=== PATIENT | female | born 1940 | race Caucasian/White ===

== ENCOUNTER 2024-02-25 14:34 | Emergency (ER) | payer MEDICARE, SELFPAY ==
--- NOTE | ~2024-02-25 | US_ITS ---
LEFT LOWER EXTREMITY VENOUS ULTRASOUND Ordering provider: Mandy Rojas PA-C History: . left calf pain . Comparison: None. FINDINGS: --COMMON FEMORAL: Patent and free of thrombus. Normal compressibility, phasic flow and augmentation. --PROXIMAL SUPERFICIAL FEMORAL: Patent and free of thrombus. Normal compressibility, phasic flow and augmentation. --DISTAL SUPERFICIAL FEMORAL: Patent and free of thrombus. Normal compressibility, phasic flow and au gmentation. --POPLITEAL: Patent and free of thrombus. Normal compressibility, phasic flow and augmentation. --POSTERIOR TIBIAL: Patent and free of thrombus. Normal compressibility, phasic flow and augmentation . IMPRESSION: Negative left lower extremity venous US. No deep vein thrombosis. Reviewed, dictated and finalized at location A. A BUYER
--- NOTE | ~2024-02-25 | XR_ITS ---
XR hip LT 2V w AP pelvis Ordering provider: Mandy Rojas PA-C History: . left hip pain . Comparison: None. FINDINGS: BONES: No acute fracture or dislocation. HIP JOINT SPACES: Mild to moderate bilateral hip osteoarthritic changes. SACROILIAC JOINT SPACES/LUMBAR SPINE: The sacroiliac joint spaces are normal. Mild degenerative carty es of the visualized lower lumbar spine. PUBIC SYMPHYSIS: Pubic symphysitis. SOFT TISSUES: Normal. IMPRESSION: No acute osseous abnormality pelvis and left hip. Reviewed, dictated and finalized at location A. AT ANALYST
--- NOTE | ~2024-02-25 | XR_ITS ---
EXAM: XR lumbar spine 2-3V DATE: 02/25/2024 15:56 HISTORY: left leg pain . COMPARISON: None available. FINDINGS: 5 nonrib-bearing lumbar-type vertebral bodies. Cholecystectomy clips. Mild scoliosis. 6 mm anterolisthesis at L5-S1. 3 mm anterolisthesis at L4-5. Multilevel disc space narrowing and marginal osteophytosis, with vacuum phenomenon at L3-4 through L5-S1. Moderate mid and lower lumbar facet hyp ertrophy and sclerosis. Aortic calcifications without evident aneurysm IMPRESSION: Grade 1 anterolistheses at L4-5 and L5-S1 Multilevel lumbar degenerative disc disease, se zoraida at L3-4 through L5-S1. Multilevel moderate facet arthropathy. Reviewed, dictated and finalized at location K. T USHER IMPRESSION: Grade 1 anterolistheses at L4-5 and L5-S1 Multilevel lumbar degener ative disc disease, severe at L3-4 through L5-S1. Multilevel moderate facet art hropathy.
[2024-02-25 14:37] VITALS: BP 157/52; PULSE 78; RESP 20; TEMP 36.4; O2SAT 98
--- NOTE | 2024-02-25 15:06 | ED_ITS ---
HPI - Extremity Problem General Chief complaint: Extremity Problem,Nontraumatic Stated complaint: LLE weakness Time Seen by Provider: 02/25/24 15:06 Focused HPI: This is a 83 year old female that presents to the ER for left leg pain. Ongoing over the last year. Reports her leg gave out and this caused her to fall today. She did not hit her head or lose consciousness. Reports she hit her left elbow, sustained an abrasion. Reports a squeezing pain in her left lower leg and calf. She took a Naproxen this morning. Denies fever, redness, or swelling. GENERAL: Elderly, well-nourished, and in no acute distress. HEAD: Normocephalic, atraumatic. CHEST: Clear to auscultation. ?No respiratory distress. HEART: Regular rate and rhythm.? NEURO: ?Alert and oriented x3. Patient screened in triage and initial orders placed.? ?Additional care and disposition to be based upon?diagnostic testing and treatment. Related Data Home Medications ?Medication ?Instructions ?Recorded ?Confirmed ?Last Taken ?Type losartan 25 mg tablet 25 mg PO DAILY 05/09/22 05/09/22 Unknown History naproxen 500 mg tablet 500 mg PO BID 05/09/22 05/09/22 Unknown History omeprazole 20 mg capsule,delayed 20 mg PO BID 05/09/22 05/09/22 Unknown History release Allergies Allergy/AdvReac Type Severity Reaction Status Date / Time hydrocodone AdvReac Unknown crying Verified 02/25/24 14:43 propoxyphene (From Darvon) AdvReac Unknown crying Verified 02/25/24 14:43 [facility] Past Medical History Medical History (Updated 02/25/24 @ 17:45 by Mandy Rojas PA-C) Sigmoid diverticulitis Chronic diarrhea Amputation of toe Surgical History Surgical History H/O umbilical hernia repair Hx of removal of ovary H/O rotator cuff surgery Social History Social History Smoking status: Unknown if ever smoked Second hand tobacco smoke exposure: No Alcohol intake: never Substance use: never Course Vital Signs Vital signs: Vital Signs Temperature 97.5 F L 02/25/24 14:37 Pulse Rate 78 02/25/24 14:37 Respiratory Rate 20 02/25/24 14:37 Blood Pressure 157/52 H 02/25/24 14:37 Pulse Oximetry 98 02/25/24 14:37 Oxygen Delivery Room Air 02/25/24 14:37 Temperature 97.9 F 02/25/24 16:22 Pulse Rate 80 02/25/24 16:22 Respiratory Rate 16 02/25/24 16:22 Blood Pressure 141/60 H 02/25/24 16:22 Pulse Oximetry 97 02/25/24 16:22 Oxygen Delivery Room Air 02/25/24 14:37 MDM - Extremity (Nontraumatic) MDM Narrative Medical decision making narrative: Patient left after initial screening exam and workup and before any further evaluation or management Imaging Data Radiologist's impression: ITS Impressions Venous Doppler Study 02/25/24 15:40 IMPRESSION: Negative left lower extremity venous US. No deep vein thrombosis. Lumbar Spine X-Ray 02/25/24 15:58 IMPRESSION: Grade 1 anterolistheses at L4-5 and L5-S1 Multilevel lumbar degenerative disc disease, severe at L3-4 through L5-S1. Multilevel moderate facet arthropathy. Hip/Pelvis X-Ray 02/25/24 16:00 IMPRESSION: No acute osseous abnormality pelvis and left hip. Discharge Plan Discharge Clinical Impression: Chronic pain of left lower extremity Patient Disposition: Elopement After Seen by Prov Condition: Stable Patient Language: Indonesian Prescriptions: No Action losartan 25 mg tablet 25 mg PO DAILY naproxen 500 mg tablet 500 mg PO BID omeprazole 20 mg capsule,delayed release(DR/EC) 20 mg PO BID cholestyramine (with sugar) [Questran] 4 gram powder in packet 4 g PO DAILY Qty: 30 3RF Rx Instructions: administer w/meal; avoid other meds within 1hr before or 4-6hr after dose colestipol 1 gram tablet 1 g PO DAILY Qty: 30 3RF Follow-up/Referrals: Sarath,MD Darrell [Primary Care Provider] -
[2024-02-25 16:22] VITALS: BP 141/60; PULSE 80; RESP 16; TEMP 36.6; O2SAT 97
== END 2024-02-25 18:37 | disposition left against medical advice (07) ==
LOC: ANHED 18:27
PROVIDERS: Emergency Provider Physician Assistant; PCP Internal Medicine
DX: M79.662 Pain in left lower leg (principal); S50.312A Abrasion of left elbow, initial encounter; W19.XXXA Unspecified fall, initial encounter
CPT/HCPCS: 72100; 73502; 93971; 99284

== ENCOUNTER 2024-03-20 12:01 | Outpatient (CLI) | payer MEDICARE, SELFPAY ==
--- NOTE | ~2024-03-20 | XR_ITS ---
XR knee LT 3V Ordering provider: Darrell Clemens, History: . Pain of left knee joint, lateral pain radiating s/p fall . Comparison: None. FINDINGS: BONES: No acute fracture or dislocation. JOINT SPACES: Normal. The marginal osteophytes in the patella. SOFT TISSUES: Normal. IMPRESSION: No acute osseous abnormality left knee. Mild osteoarthritic changes. Reviewed, dictated and finalized at location A. LIANDEER LOPPER
== END 2024-03-20 12:02 | disposition home or self-care (01) ==
PROVIDERS: PCP Internal Medicine; Visit Provider Internal Medicine
DX: M25.562 Pain in left knee (principal)
CPT/HCPCS: 73562

== ENCOUNTER 2024-04-04 12:42 | Emergency (ER) | payer MEDICARE, SELFPAY ==
--- NOTE | ~2024-04-04 | US_ITS ---
EXAMINATION: US venous doppler [facility] DATE: 04/04/2024 15:03 INDICATION: L calf pain . TECHNIQUE: Grayscale images without and with compression and Doppler images of the left lower extremi ty veins were obtained. COMPARISON: None FINDINGS: The left common femoral vein, profunda (deep) femoral vein, femoral vein, popliteal vein, peroneal v ein, posterior tibial veins, gastrocnemius vein, and greater saphenous vein are patent. IMPRESSION: Patent left lower extremity veins. No evidence of deep venous thrombosis. Reviewed, dictated and finalized at location K. ER COORDINATOR
[2024-04-04 12:53] VITALS: BP 122/65; PULSE 75; RESP 18; TEMP 36.3; O2SAT 98
[2024-04-04 13:07] VITALS: BP 147/47; PULSE 82; RESP 17; O2SAT 98
--- NOTE | 2024-04-04 14:38 | ED_ITS ---
HPI - Extremity Injury (Lower) General Chief Complaint: Extremity Injury, Lower Stated Complaint: eye and leg problems Time Seen by Provider: 04/04/24 13:54 History of Present Illness HPI Narrative: Pt is an 83-year-old female who presents to the ER with complaints of left eye swelling after using eyedrops. She reports she had cataract surgery on the 16 of March and has been using antibiotic drops since then. Patient reports every time she uses them her eye starts burning, tearing, swelling, itching. She reports she is supposed use these eyedrops until her follow-up appointment on May 15 but she stopped using them because of the pain. Patient also endorses left lower extremities swelling and pain that has been present for about a month. She told her primary care provider about the pain. They ordered an x-ray, which was normal so he told patient the pain was related to arthritis. Patient denies any shortness of breath, chest pain, drainage from her eye, headaches. She endorses a history of high blood pressure, and hyperlipidemia. Related Data Home Medications ?Medication ?Instructions ?Recorded ?Confirmed ?Last Taken ?Type losartan 25 mg tablet 25 mg PO DAILY 05/09/22 05/09/22 Unknown History naproxen 500 mg tablet 500 mg PO BID 05/09/22 05/09/22 Unknown History omeprazole 20 mg capsule,delayed 20 mg PO BID 05/09/22 05/09/22 Unknown History release Allergies Allergy/AdvReac Type Severity Reaction Status Date / Time hydrocodone AdvReac Unknown crying Verified 04/04/24 13:09 propoxyphene (From Darvon) AdvReac Unknown crying Verified 04/04/24 13:09 Review of Systems Review of Systems: All systems reviewed & are unremarkable except as noted in HPI and below PMFSH Past Medical History Medical History Sigmoid diverticulitis Chronic diarrhea Amputation of toe Surgical History Surgical History H/O umbilical hernia repair Hx of removal of ovary H/O rotator cuff surgery Social History Social History Smoking status: Unknown if ever smoked Second hand tobacco smoke exposure: No Alcohol intake: never Substance use: never Exam Narrative: GENERAL: Well appearing, well-nourished, non-toxic, in no acute distress. HEAD: Normocephalic, atraumatic. PERRLA +, positive upper and lower eyelid swelling, no evidence of preseptal or periorbital edema, no icteric sclera NECK: Supple. No adenopathy, no masses. RESPIRATORY: Airway patent, respirations nonlabored. Clear to auscultation bilaterally, no rales, rhonchi, wheezing. CARDIOVASCULAR: Regular rate and rhythm without murmurs, rubs, or gallops. Peripheral pulses 2+ and equal bilaterally. ABDOMINAL: Soft, nontender, nondistended, no hepatosplenomegaly. Normoactive BS. MUSCULOSKELETAL: Moves all extremities. Strength/ROM intact without gross deformities. +pain in LLE including calf, no notable swelling SKIN: Warm, dry, normal color. No rashes. NEURO: A&O X3. Speech clear. Cranial nerves II-XII grossly intact. No ataxic movements. PSYCHIATRIC: Appropriate mood and affect. Normal interaction. Course Vital Signs Vital signs: Vital Signs Temperature 36.3 C L 04/04/24 12:53 Pulse Rate 75 04/04/24 12:53 Respiratory Rate 18 04/04/24 12:53 Blood Pressure 122/65 04/04/24 12:53 Pulse Oximetry 98 04/04/24 12:53 Oxygen Delivery Room Air 04/04/24 12:53 Temperature 36.3 C L 04/04/24 12:53 Pulse Rate 82 04/04/24 13:07 Respiratory Rate 17 04/04/24 13:07 Blood Pressure 147/47 H 04/04/24 13:07 Pulse Oximetry 98 04/04/24 13:07 Oxygen Delivery Room Air 04/04/24 12:53 MDM - Extremity Injury (Lower) MDM Narrative Medical decision making narrative: Pt is an 83-year-old female who presents to the ER with complaints of left eye swelling after using eyedrops. She reports she had cataract surgery on the 16 of March and has been using antibiotic drops since then. Patient reports every time she uses them her eye starts burning, tearing, swelling, itching. She reports she is supposed use these eyedrops until her follow-up appointment on May 15 but she stopped using them because of the pain. Patient also endorses left lower extremities swelling and pain that has been present for about a month. She told her primary care provider about the pain. They ordered an x-ray, which was normal so he told patient the pain was related to arthritis. Patient denies any shortness of breath, chest pain, drainage from her eye, headaches. She endorses a history of high blood pressure, and hyperlipidemia. Labs Ordered: None necessary Imaging Ordered: Left lower extremity venous ultrasound Doppler Results: Patient's left lower extremity venous ultrasound shows Patent left lower extremity veins. No evidence of deep venous thrombosis. Diagnosis: Left lower extremity pain, left eye irritation status post cataract surgery Risks: Wells' Criteria for DVT from [email or web address] on 04/04/2024 All calculations should be rechecked by clinician prior to use RESULT SUMMARY: 1 points Moderate risk group for DVT. See Next Steps for details. INPUTS: Active cancer ?> 0 = No Bedridden recently >3 days or major surgery within 12 weeks ?> 0 = No Calf swelling >3 cm compared to the other leg ?> 0 = No Collateral (nonvaricose) superficial veins present ?> 0 = No Entire leg swollen ?> 0 = No Localized tenderness along the deep venous system ?> 1 = Yes Pitting edema, confined to symptomatic leg ?> 0 = No Paralysis, paresis, or recent plaster immobilization of the lower extremity ?> 0 = No Previously documented DVT ?> 0 = No Alternative diagnosis to DVT as likely or more likely ?> 0 = No Consults: Spoke with pt's focus puller who recommended patient be discharged with prednisolone eyedrops. She advised patient no longer needs antibiotic eyedrops. Patient should use the eyedrops twice a day for 1 week and then once a day for 1 week. Patient Education/Shared MDM: Results of ultrasound shared with patient. She reports decreased pain in her left eye after Decadron and Benadryl administration but still endorses mild itching. Patient was advised to sweet pickled fruit maker her eyedrops prescription and start them this evening. She reports her left leg continues to ache so patient will be given a shot of Toradol IM prior to discharge. Patient and her daughter verbalized understanding and are in agreement with plan. The but also a referral to Orthopedics for further left lower extremity evaluation. Vital signs stable at time of discharge. All questions answered. Differential Diagnosis Differential diagnosis: Likely other (DVT, allergic reaction, L eye infection) Imaging Data Attestation: I personally reviewed and interpreted this imaging study as follows: Radiologist's impression: Impressions Venous Doppler Study 04/04/24 15:09 IMPRESSION: Patent left lower extremity veins. No evidence of deep venous thrombosis. Discharge Plan Discharge Clinical Impression: Irritation of left eye, Lower extremity pain Patient Disposition: Home, Self-Care Condition: Stable Instructions: Antibiotic Form Additional Instructions: Please return to the ER with an worsening symptoms. Follow-up with primary care provider in the next 2-3 days. Take all medications as prescribed. Patient Language: New Zealander Prescriptions: New prednisolone acetate 1 % drops,suspension 1 drp LEFT EYE Q12H Qty: 10 0RF Rx Instructions: Please place 1 drop in your left eye 2 times a day for [address] 1 drop in your left eye 1 time a day x1 week. No Action losartan 25 mg tablet 25 mg PO DAILY naproxen 500 mg tablet 500 mg PO BID omeprazole 20 mg capsule,delayed release(DR/EC) 20 mg PO BID cholestyramine (with sugar) [Questran] 4 gram powder in packet 4 g PO DAILY Qty: 30 3RF Rx Instructions: administer w/meal; avoid other meds within 1hr before or 4-6hr after dose colestipol 1 gram tablet 1 g PO DAILY Qty: 30 3RF Follow-up/Referrals: Sarath,MD Darrell [Primary Care Provider] - Bradford Jones MD [Physician] - (orthopedics) Time of Disposition: 15:53
[2024-04-04] MEDS: dexAMETHasone SOD PHOS INJ 10 MG/ML 1 ML VIAL IM (14:39)
[2024-04-04] MEDS: diphenhydrAMINE HCl CAP 25 MG CAPSULE 50 MG PO (14:39)
[2024-04-04] MEDS: KETOROLAC 30 MG/ML VIAL (*BKC) IM (16:06)
[2024-04-04 16:09] VITALS: BP 142/76; PULSE 78; RESP 18; TEMP 36.5; O2SAT 98
--- OUTSIDE RECORDS SUMMARY | 2024-04-09 09:01 | XMS_ITS | Data Portability ---
Author Organization [facility] EARNESTINEEllyHotchkiss H Address [address] [place] [address] Care Team Providers Care Examination Scorer Name Role Phone JAZMYN CLEMENS Primary Care Provider [phone] Assessment Encounter Date Assessment Date Assessment LastModified by Organization Details LastModified Time 06/19/2023 06/19/2023 Hypertension systolic 140 I like for her to cut back on caffeine and salt a little bit we may need to back off the Naprosyn if it does not come down a little bit. Dyslipidemia continue with the atorvastatin osteoarthritis Naprosyn for now. She refuses all cancer screenings she refuses any consults to go talk with specialist about cancel screenings such as for breast or for colon she will follow-up with me in 4 to 6 months blood work ordered [email or web address] Not available 07/17/2023 22:15:08 07/24/2023 07/24/2023 Discussed [email or web address] Not available 07/16 20:48:46 10/22/2023 10/22/2023 continue current therapy follow up with me in 6 months declines mammogram declines colonoscopy and any colon cancer screening also declines GI referral to discuss the screening process follow up 6 months Not available 11/09/2023 16:24:16 02/28/2024 02/28/2024 EKG normal sinus rhythm no acute changes. Cleared for cataract surgery left knee declines physical therapy but we will x-ray of the knee hypertension controlled all cancer screenings declined again as I did bring them up immunizations declined today she will keep her regular follow up [email or web address] Not available 02/29/2024 13:49:07 Plan of Treatment Reminders Order Date Submit Date Provider Last Modified By Organization Details Last Modified Time Details Appointments ANY 15 2024 10:00A Alonso Clemens MD Not available Not available Not available Lab lipid panel, serum 2023 024 [facility], [address], [place], [address], 06/20/2023 06:19:02 CMP, serum or plasma 2023 024 [facility], [address], [place], [address], 06/20/2023 06:19:01 CBC w/ auto diff 2023 024 [facility], [address], [place], [address], 06/20/2023 06:19:03 CMP, serum or plasma 2023 024 [facility], [address], [place], [address], 10/23/2023 11:10:28 lipid panel, serum 2023 024 [facility], [address], [place], [address], 10/23/2023 11:10:27 CBC w/ auto diff 2023 024 [facility], [address], [place], [address], 10/23/2023 11:10:28 Referral None recorded. Procedures None recorded. Surgeries None recorded. Imaging XR, knee, 3 view 2023 024 [facility] (Im[facility]), [address], [place], [address], 03/25/2024 10:03:24 electroca rdiogram 2023 024 [email or web address] In-Office Order, Internal Use Only DO Not Attach Compendium DO Not Attach Compendium, Do Not Delete/merge, [id number] 02/28/2024 13:34:55 Medication Orders None recorded. Patient TargetsNo targets recorded. Patient Instructions Encounter Date Encounter Id Patient Instructions Last Modified By Organization Details Last Modified Time 07/24/2023 [id number] preventing falls : care instructions [email or web address] Not available 07/29/2023 20:48:39 Medicare Well[employer] Preventive Checklist Not available 07/29/2023 20:48:39 Reason for Referral None Reported. Results Created Date Observation Date Name Description Value Unit Range Abnormal Flag Note LastModifiedBy Organization Detail LastModifiedTime 06/19/1906/20/2023 CMP14 glucose 85 mg/dL 70-99 Not Availabl e [facility] ([facility]) [address] [place], [address], 06/20/2023 06:19:01 06/19/19 24 06/20/2023 CMP14 BUN 28 mg/dL 8-27 above high normal Not Available [facility] ([facility]) [address] [place], [address], 06/20/2023 06:19:06/19/19 24 06/20/2023 CMP14 creatinine 0.76 mg/dL 0.57-1 .00 Not Available [facility] ([facility]) [address] [place], [address], 06/20/2023 06:19:01 06/19/19 24 06/20/2023 CMP14 eGFR 79 mL/mi n/1.7 3 >59 Not Available [facility] ([facility]) [address] [place], [address], 06/20/2023 06:19:01 06/19/19 24 06/20/2023 CMP14 BUN/creatini ne ratio 37 12-28 above high normal Not Available [facility] ([facility]) [address] [place], [address], 06/20/2023 06:19:01 06/19/19 24 06/20/2023 CMP14 sodium 141 mmol/ L 134-14 4 Not Available [facility] ([facility]) [address] [place], [address], 06/20/2023 06:19:01 06/19/19 24 06/20/2023 CMP14 potassium 4.3 mmol/ L 3.5-5. 2 Not Available [facility] ([facility]) [address] [place], [address], 06/20/2023 06:19:01 06/19/19 24 06/20/2023 CMP14 chloride 106 mmol/ L 96-106 Not Available [facility] ([facility]) [address] [place], [address], 06/20/2023 06:19:06/19/19 24 06/20/2023 CMP14 carbon dioxide, total 23 mmol/ L 20-29 Not Available [facility] ([facility]) [address] [place], [address], 06/20/2023 06:19:01 06/19/19 24 06/20/2023 CMP14 calcium 9.5 mg/dL 8.7-10 .3 Not Available [facility] ([facility]) [address] [place], [address], 06/20/2023 06:19:01 06/19/19 24 06/20/2023 CMP14 protein, total 6.1 g/dL 6.0-8. 5 Not Available [facility] ([facility]) [address] [place], [address], 06/20/2023 06:19:01 06/19/19 24 06/20/2023 CMP14 albumin 4.4 g/dL 3.7-4. 7 Not Available [facility] ([facility]) [address] [place], [address], 06/20/2023 06:19:01 06/19/19 24 06/20/2023 CMP14 globulin, total 1.7 g/dL 1.5-4. 5 Not Available [facility] ([facility]) [address] [place], [address], 06/20/2023 06:19:01 06/19/19 24 06/20/2023 CMP14 A/G ratio 2.6 1.2-2. 2 above high normal Not Available [facility] ([facility]) [address] [place], [address], 06/20/2023 06:19:01 06/19/19 24 06/20/2023 CMP14 bilirubin, total 0.5 mg/dL 0.0-1. 2 Not Available [facility] ([facility]) [address] [place], [address], 06/20/2023 06:19:01 06/19/19 24 06/20/2023 CMP14 alkaline phosphatase 53 IU/L 44-121 Not Available [facility] ([facility]) [address] [place], [address], 06/20/2023 06:19:01 06/19/19 24 06/20/2023 CMP14 AST (SGOT) 14 IU/L 0-40 Not Avail able [facility] ([facility]) [address] [place], [address], 06/20/2023 06:19:01 06/19/19 24 06/20/2023 CMP14 ALT (SGPT) 15 IU/L 0-32 Not Avail able [facility] ([facility]) [address] [place], [address], 06/20/2023 06:19:01 06/19/19 24 06/20/2023 LIPID PANEL cholesterol, total 144 mg/dL 100-19 9 Not Available [facility] ([facility]) [address] [place], [address], 06/20/2023 06:19:02 06/19/19 24 06/20/2023 LIPID PANEL triglyceride s 81 mg/dL 0-149 Not Available [facility] ([facility]) [address], [place], [address], 06/20/2023 06:19:02 06/19/19 24 06/20/2023 LIPID PANEL HDL cholesterol 62 mg/dL >39 Not Available [facility] ([facility]) [address], [place], [address], 06/20/2023 06:19:02 06/19/19 24 06/20/2023 LIPID PANEL VLDL cholesterol joe 16 mg/dL 5-40 Not Available [facility] ([facility]) [address], [place], [address], 06/20/2023 06:19:02 06/19/19 24 06/20/2023 LIPID PANEL LDL chol calc ([facility]) 66 mg/dL 0-99 Not Available [facility]) [address] [place], [address], 06/20/2023 06:19:02 06/19/19 24 06/19/2023 CBC WITH DIFFE RENTI AL/PL ATELE T WBC 5.3 x10e3 /uL 3.4-10 .8 Not Available [facility] ([facility]) [address] [place], [address], 06/20/2023 06:19:03 06/19/19 24 06/19/2023 CBC WITH DIFFE RENTI AL/PL ATELE T RBC 4.70 x10e6 /uL 3.77-5 .28 Not Available [facility] ([facility]) [address] [place], [address], 06/20/2023 06:19:03 06/19/19 24 06/19/2023 CBC WITH DIFFE RENTI AL/PL ATELE T hemoglobin 14.5 g/dL 11.1-1 5.9 Not Available [facility] ([facility]) [address], [place], [address], 06/20/2023 06:19:03 06/19/19 24 06/19/2023 CBC WITH DIFFE RENTI AL/PL ATELE T hematocrit 44.2 % 34.0-4 6.6 Not Available [facility] ([facility]) [address], [place], [address], 06/20/2023 06:19:03 06/19/19 24 06/19/2023 CBC WITH DIFFE RENTI AL/PL ATELE T MCV 94 fL 79-97 Not Available [facility] ([facility]) [address], [place], [address], 06/20/2023 06:19:03 06/19/19 24 06/19/2023 CBC WITH DIFFE RENTI AL/PL ATELE T MCH 30.9 pg 26.6-3 3.0 Not Available [facility] ([facility]) [address] [place], [address], 06/20/2023 06:19:03 06/19/19 24 06/19/2023 CBC WITH DIFFE RENTI AL/PL ATELE T MCHC 32.8 g/dL 31.5-3 5.7 Not Available [facility] ([facility]) [address] [place], [address], 06/20/2023 06:19:03 06/19/19 24 06/19/2023 CBC WITH DIFFE RENTI AL/PL ATELE T RDW 11.7 % 11.7-1 5.4 Not Available [facility] ([facility]) [address] [place], [address], 06/20/2023 06:19:03 06/19/19 24 06/19/2023 CBC WITH DIFFE RENTI AL/PL ATELE T platelets 172 x10e3 /uL 150-45 0 Not Available [facility] ([facility]) [address], [place], [address], 06/20/2023 06:19:03 06/19/19 24 06/19/2023 CBC WITH DIFFE RENTI AL/PL ATELE T neutrophils 71 % notest ab. Not Available [facility] ([facility]) [address], [place], [address], 06/20/2023 06:19:03 06/19/19 24 06/19/2023 CBC WITH DIFFE RENTI AL/PL ATELE T lymphs 21 % notest ab. Not Available [facility] ([facility]) [address], [place], [address], 06/20/2023 06:19:03 06/19/19 24 06/19/2023 CBC WITH DIFFE RENTI AL/PL ATELE T monocytes 6 % notest ab. Not Available [facility] ([facility]) [address], [place], [address], 06/20/2023 06:19:03 06/19/19 24 06/19/2023 CBC WITH DIFFE RENTI AL/PL ATELE T eos 1 % notest ab. Not Available [facility] ([facility]) [address], [place], [address], 06/20/2023 06:19:03 06/19/19 24 06/19/2023 CBC WITH DIFFE RENTI AL/PL ATELE T basos 1 % notest ab. Not Available [facility] ([facility]) [address], [place], [address], 06/20/2023 06:19:03 06/19/19 24 06/19/2023 CBC WITH DIFFE RENTI AL/PL ATELE T neutrophils (absolute) 3.7 x10e3 /uL 1.4-7. 0 Not Available [facility] ([facility]) [address], [place], [address], 06/20/2023 06:19:03 06/19/19 24 06/19/2023 CBC WITH DIFFE RENTI AL/PL ATELE T lymphs (absolute) 1.1 x10e3 /uL 0.7-3. 1 Not Available [facility] ([facility]) [address], [place], [address], 06/20/2023 06:19:03 06/19/19 24 06/19/2023 CBC WITH DIFFE RENTI AL/PL ATELE T monocytes(ab solute) 0.3 x10e3 /uL 0.1-0. 9 Not Available [facility] ([facility]) [address], [place], [address], 06/20/2023 06:19:03 06/19/19 24 06/19/2023 CBC WITH DIFFE RENTI AL/PL ATELE T eos (absolute) 0.1 x10e3 /uL 0.0-0. 4 Not Available [facility] ([facility]) [address], [place], [address], 06/20/2023 06:19:03 06/19/19 24 06/19/2023 CBC WITH DIFFE RENTI AL/PL ATELE T baso (absolute) 0.1 x10e3 /uL 0.0-0. 2 Not Available [facility] ([facility]) [address], [place], [address], 06/20/2023 06:19:03 06/19/19 24 06/19/2023 CBC WITH DIFFE RENTI AL/PL ATELE T immature granulocytes 0 % notest ab. Not Available [facility] ([facility]) [address], [place], [address], 06/20/2023 06:19:03 06/19/19 24 06/19/2023 CBC WITH DIFFE RENTI AL/PL ATELE T immature grans (abs) 0.0 x10e3 /uL 0.0-0. 1 Not Available [facility] ([facility]) [address] [place], [address], 06/20/2023 06:19:03 10/22/19 24 10/23/2023 LIPID PANEL cholesterol, total 152 mg/dL 100-19 9 Not Available [facility] ([facility]) [address] [place], [address], 10/23/2023 11:10:27 10/22/19 24 10/23/2023 LIPID PANEL triglyceride s 103 mg/dL 0-149 Not Available [facility] ([facility]) [address] [place], [address], 10/23/2023 11:10:27 10/22/19 24 10/23/2023 LIPID PANEL HDL cholesterol 59 mg/dL >39 Not Available [facility] ([facility]) [address] [place], [address], 10/23/2023 11:10:27 10/22/19 24 10/23/2023 LIPID PANEL VLDL cholesterol joe 19 mg/dL 5-40 Not Available [facility] ([facility]) [address] [place], [address], 10/23/2023 11:10:27 10/22/19 24 10/23/2023 LIPID PANEL LDL chol calc ([facility]) 74 mg/dL 0-99 Not Available [facility] ([facility]) [address] [place], [address], 10/23/2023 11:10:27 10/22/19 24 10/23/2023 COMP. METAB OLIC PANEL (14) glucose 84 mg/dL 70-99 Not Available [facility] ([facility]) [address] [place], [address], 10/23/2023 11:10:28 10/22/19 24 10/23/2023 COMP. METAB OLIC PANEL (14) BUN 30 mg/dL 8-27 above high normal Not Available [facility] ([facility]) [address] [place], [address], 10/23/2023 11:10:28 10/22/19 24 10/23/2023 COMP. METAB OLIC PANEL (14) creatinine 0.75 mg/dL 0.57-1 .00 Not Available [facility] ([facility]) [address] [place], [address], 10/23/2023 11:10:28 10/22/19 24 10/23/2023 COMP. METAB OLIC PANEL (14) eGFR 80 mL/mi n/1.7 3 >59 Not Available [facility] ([facility]) [address], [place], [address], 10/23/2023 11:10:28 10/22/19 24 10/23/2023 COMP. METAB OLIC PANEL (14) BUN/creatini ne ratio 40 12-28 above high normal Not Available [facility] ([facility]) [address], [place], [address], 10/23/2023 11:10:28 10/22/19 24 10/23/2023 COMP. METAB OLIC PANEL (14) sodium 140 mmol/ L 134-14 4 Not Available [facility] ([facility]) [address] [place], [address], 10/23/2023 11:10:28 10/22/19 24 10/23/2023 COMP. METAB OLIC PANEL (14) potassium 4.3 mmol/ L 3.5-5. 2 Not Available [facility] ([facility]) [address] [place], [address], 10/23/2023 11:10:28 10/22/19 24 10/23/2023 COMP. METAB OLIC PANEL (14) chloride 104 mmol/ L 96-106 Not Available [facility] ([facility]) [address], [place], [address], 10/23/2023 11:10:28 10/22/19 24 10/23/2023 COMP. METAB OLIC PANEL (14) carbon dioxide, total 23 mmol/ L 20- Not Available [facility] ([facility]) [address], [place], [address], 10/23/2023 11:10:28 10/22/19 24 10/23/2023 COMP. METAB OLIC PANEL (14) calcium 9.6 mg/dL 8.7-10 .3 Not Available [facility] ([facility]) [address] [place], [address], 10/23/2023 11:10:28 10/22/19 24 10/23/2023 COMP. METAB OLIC PANEL (14) protein, total 6.3 g/dL 6.0-8. 5 Not Available [facility] ([facility]) [address], [place], [address], 10/23/2023 11:10:28 10/22/19 24 10/23/2023 COMP. METAB OLIC PANEL (14) albumin 4.2 g/dL 3.7-4. 7 Not Available [facility] ([facility]) [address] [place], [address], 10/23/2023 11:10:28 10/22/19 24 10/23/2023 COMP. METAB OLIC PANEL (14) globulin, total 2.1 g/dL 1.5-4. 5 Not Available [facility] ([facility]) [address] [place], [address], 10/23/2023 11:10:28 10/22/19 24 10/23/2023 COMP. METAB OLIC PANEL (14) bilirubin, total 0.7 mg/dL 0.0-1. 2 Not Available [facility] ([facility]) [address] [place], [address], 10/23/2023 11:10:28 10/22/19 24 10/23/2023 COMP. METAB OLIC PANEL (14) alkaline phosphatase 55 IU/L 44-121 Not Available [facility]) [address] [place], [address], 10/23/2023 11:10:28 10/22/19 24 10/23/2023 COMP. METAB OLIC PANEL (14) AST (SGOT) 17 IU/L 0-40 Not Available [facility] ([facility]) [address] [place], [address], 10/23/2023 11:10:28 10/22/19 24 10/23/2023 COMP. METAB OLIC PANEL (14) ALT (SGPT) 13 IU/L 0-32 Not Available [facility] ([facility]) [address], [place], [address], 10/23/2023 11:10:28 10/22/19 24 10/23/2023 CBC WITH DIFFE RENTI AL/PL ATELE T WBC 6.1 x10e3 /uL 3.4-10 .8 Not Available [facility] ([facility]) [address] [place], [address], 10/23/2023 11:10:28 10/22/19 24 10/23/2023 CBC WITH DIFFE RENTI AL/PL ATELE T RBC 4.38 x10e6 /uL 3.77-5 .28 Not Available [facility] ([facility]) [address] [place], [address], 10/23/2023 11:10:28 10/22/19 24 10/23/2023 CBC WITH DIFFE RENTI AL/PL ATELE T hemoglobin 14.1 g/dL 11.1-1 5.9 Not Available [facility] ([facility]) [address] [place], [address], 10/23/2023 11:10:28 10/22/19 24 10/23/2023 CBC WITH DIFFE RENTI AL/PL ATELE T hematocrit 43.6 % 34.0-4 6.6 Not Available [facility] ([facility]) [address], [place], [address], 10/23/2023 11:10:28 10/22/19 24 10/23/2023 CBC WITH DIFFE RENTI AL/PL ATELE T MCV 100 fL 79-97 above high normal Not Available [facility] ([facility]) [address], [place], [address], 10/23/2023 11:10:28 10/22/19 24 10/23/2023 CBC WITH DIFFE RENTI AL/PL ATELE T MCH 32.2 pg 26.6-3 3.0 Not Available [facility] ([facility]) [address], [place], [address], 10/23/2023 11:10:28 10/22/19 24 10/23/2023 CBC WITH DIFFE RENTI AL/PL ATELE T MCHC 32.3 g/dL 31.5-3 5.7 Not Available [facility] ([facility]) [address], [place], [address], 10/23/2023 11:10:28 10/22/19 24 10/23/2023 CBC WITH DIFFE RENTI AL/PL ATELE T RDW 12.0 % 11.7-1 5.4 Not Available [facility] ([facility]) [address], [place], [address], 10/23/2023 11:10:28 10/22/19 24 10/23/2023 CBC WITH DIFFE RENTI AL/PL ATELE T platelets 182 x10e3 /uL 150-45 0 Not Available [facility] ([facility]) [address], [place], [address], 10/23/2023 11:10:28 10/22/19 24 10/23/2023 CBC WITH DIFFE RENTI AL/PL ATELE T neutrophils 66 % notest ab. Not Available [facility] ([facility]) [address], [place], [address], 10/23/2023 11:10:28 10/22/19 24 10/23/2023 CBC WITH DIFFE RENTI AL/PL ATELE T lymphs 24 % notest ab. Not Available [facility] ([facility]) [address], [place], [address], 10/23/2023 11:10:28 10/22/19 24 10/23/2023 CBC WITH DIFFE RENTI AL/PL ATELE T monocytes 7 % notest ab. Not Available [facility] ([facility]) [address], [place], [address], 10/23/2023 11:10:28 10/22/19 24 10/23/2023 CBC WITH DIFFE RENTI AL/PL ATELE T eos 2 % notest ab. Not Available [facility] ([facility]) [address], [place], [address], 10/23/2023 11:10:28 10/22/19 24 10/23/2023 CBC WITH DIFFE RENTI AL/PL ATELE T basos 1 % notest ab. Not Available [facility] ([facility]) [address], [place], [address], 10/23/2023 11:10:28 10/22/19 24 10/23/2023 CBC WITH DIFFE RENTI AL/PL ATELE T neutrophils (absolute) 4.1 x10e3 /uL 1.4-7. 0 Not Available [facility] ([facility]) [address], [place], [address], 10/23/2023 11:10:28 10/22/19 24 10/23/2023 CBC WITH DIFFE RENTI AL/PL ATELE T lymphs (absolute) 1.5 x10e3 /uL 0.7-3. 1 Not Available [facility] ([facility]) [address], [place], [address], 10/23/2023 11:10:28 10/22/19 24 10/23/2023 CBC WITH DIFFE RENTI AL/PL ATELE T monocytes(ab solute) 0.4 x10e3 /uL 0.1-0. 9 Not Available [facility] ([facility]) [address], [place], [address], 10/23/2023 11:10:28 10/22/19 24 10/23/2023 CBC WITH DIFFE RENTI AL/PL ATELE T eos (absolute) 0.1 x10e3 /uL 0.0-0. 4 Not Available [facility] ([facility]) [address], [place], [address], 10/23/2023 11:10:28 10/22/19 24 10/23/2023 CBC WITH DIFFE RENTI AL/PL ATELE T baso (absolute) 0.1 x10e3 /uL 0.0-0. 2 Not Available [facility] ([facility]) [address], [place], [address], 10/23/2023 11:10:28 10/22/19 24 10/23/2023 CBC WITH DIFFE RENTI AL/PL ATELE T immature granulocytes 0 % notest ab. Not Available [facility] ([facility]) [address], [place], [address], 10/23/2023 11:10:28 10/22/19 24 10/23/2023 CBC WITH DIFFE RENTI AL/PL ATELE T immature grans (abs) 0.0 x10e3 /uL 0.0-0. 1 Not Available [facility] ([facility]) [address] [place], [address], 10/23/2023 11:10:28 02/25/20 24 02/25/2024 US, duple x, venou s, lower extre mity No observ ation record ed. [address], [place], [address], 02/26/2024 09:26:20 02/25/20 24 02/25/2024 XR, lumba r spine , 2 view No observ ation record ed. [address], [place], [address], 02/26/2024 12:02:16 02/25/20 24 02/25/2024 XR, hip + pelvi s, unila teral , 2 or 3 view No observ ation record ed. [address], [place], [address], 02/26/2024 13:36:24 02/28/20 elect rocar diogr am No observ ation record ed. B[facility] In-Office Order Internal Use Only DO Not Attach Compendium DO Not Attach Compendium, Do Not Delete/merge, [id number] 02/28/2024 11:16:26 02/28/20 24 02/28/2024 elect rocar diogr am No observ ation record ed. BRAHAM In-Office Order Internal Use Only DO Not Attach Compendium DO Not Attach Compendium, Do Not Delete/merge, [id number] 02/28/2024 11:23:38 03/21/19 25 03/20/2024 XR, knee, 3 view No observ ation record ed. [address], [place], [address], 03/26/2024 10:09:35 04/04/19 25 04/04/2024 imagi ng/di agnos tic resul t No observ ation record ed. [address], [place], [address], 04/04/2024 16:36:03 Result Notes None recorded. Problems Name Problem SNOMED Code Status Onset Date Resolution Date Notes Provider Name and Address Organization Details Recorded Time Essential hypertensio n 46008719 Active 2023 Pito Byrd MA null, [place] - [facility] 4 11:45:46 Hyperlipide rafi 97837076 Active 2023 Pito Byrd [place] null, [place] - [facility] 4 11:45:47 Osteoarthri tis 515529953 Active 2023 Pito Byrd MA null, [place] - [facility] 4 11:45:48 Mammogram declined 570660743 Active 2023 Jazmyn Clemens MD Attn: [address] [place], [address], [facility] - [facility] 4 16:23:57 Colonoscopy declined 1671301771766 00 Active 2023 Jazmyn Clemens MD Attn: [address] [place], [address], [facility] - [facility] 4 16:23:57 Problem Notes None recorded. Procedures Surgical History Date Name Laterality Status Provider Name and Address Organization Details Recorded Time 03/17/19 Total hysterectomy completed Elida Perez MA [facility] 02/28/2024 10:39:50 Hernia Repair completed Jinny Tatum MA [facility] 06/19/2023 11:11:56 colonoscopy completed Jinny Tatum [facility] 06/19/2023 11:15:11 Imaging Results Imaging Date Name Status LastModified by Organization Details LastModified Time 02/25/2024 US, duplex, venous, lower extremity completed [address], [place], [address], 02/26/2024 09:26:20 02/25/2024 XR, lumbar spine, 2 view completed [address], [place], [address], 02/26/2024 12:02:16 02/25/2024 XR, hip + pelvis, unilateral, 2 or [address], [place], [address], 02/26/2024 13:36:24 02/28/2024 electrocardiogram completed [facility] Order Internal Use Only DO Not Attach Compendium DO Not Attach Compendium, Do Not Delete/merge, [id number] 02/28/2024 11:16:26 02/28/2024 electrocardiogram completed [facility] Order Internal Use Only DO Not Attach Compendium DO Not Attach Compendium, Do Not Delete/merge, [id number] 02/28/2024 11:23:38 03/20/2024 XR, knee, 3 view completed [address], [place], [address], 03/26/2024 10:09:35 04/04/2024 imaging/diagnostic result active [address] [address], [place], [place], [id number], 04/04/2024 16:36:03 Procedure Notes None recorded. Medical Equipment None Reported. Allergies No known drug allergies Medications Name Sig Start Date Stop Date Status Note LastModified by Organization Details LastModified Time losartan 50 mg tablet TAKE 1 TABLET BY MOUTH EVERY DAY active Not Available Not Available No t Available latanoprost 0.005 % eye drops APPLY 1 DROP INTO BOTH EYES EVERY NIGHT AT BEDTIME active Not Available Not Available No t Available atorvastatin 10 mg tablet Take 1 tablet(s ) every day by oral route. active Not Available Not Available No t Available losartan 25 mg tablet TAKE 1 TABLET BY MOUTH EVERY DAY 06/02 completed Not Available Not Available Not Available naproxen 500 mg tablet TAKE 1 TABLET BY MOUTH TWICE A DAY NEEDED 2023 active Not Available Not Available Not Avai lable Vitals Date Recorded Body weight Provider Name an d Address Organization Details Last Updated DateTime 06/19/2023 53076.64 g ETIENNE Cooley - [facility] 06/18 11:05:55 Date Recorded Body temperature Provider Name a nd Address Organization Details Last Updated DateTime 06/19/2023 98.6 [degF] ETIENNE Cooley - [facility] 06/19/2023 11:14:37 Date Recorded Oxygen saturation Oxygen saturation in Arterial blood by Pulse oximetry Provider Name and Address Organization Details Last Updated DateTime 06/19/2023 98 % 98 % Jinny Tatum [facility] 06/19/2023 11:14:39 Date Recorded Heart rate Provider Name an d Address Organization Details Last Updated DateTime 06/19/2023 66 /min Jinny Tatum [facility] 06/18 11:15:05 Date Recorded Body weight Provider Name an d Address Organization Details Last Updated DateTime 07/24/2023 62505.36 g Jinny Tatum [facility] 07/23 11:24:00 Date Recorded Body mass index (BMI) Body height Provider Name and Address Organization Details Last Updated DateTime 07/24/2023 24.2 kg/m2 160.02 cm Jinny Tatum [facility] 07/24/2023 11:24:16 Date Recorded Heart rate Provider Name an d Address Organization Details Last Updated DateTime 07/24/2023 90 /min Jinny Tatum [facility] 07/23 11:26:01 Date Recorded Oxygen saturation Oxygen saturation in Arterial blood by Pulse oximetry Provider Name and Address Organization Details Last Updated DateTime 07/24/2023 97 % 97 % Jinny Tatum [facility] 07/24/2023 11:26:02 Date Recorded Pain severity - 0-10 verbal numeric rating [Score] - Reported Provider Name and Address Organization Details Last Updated DateTime 07/24/2023 0 Tiffanie Mcmullen [facility] 07/24/2023 11:27:21 Date Recorded Body height Provider Name an d Address Organization Details Last Updated DateTime 10/22/2023 160.02 cm Kait Jones [facility] 10/22/2023 11:16:02 Date Recorded Body mass index (BMI) Body weight Provider Name and Address Organization Details Last Updated DateTime 10/22/2023 24 kg/m2 14708.77 g Kait Jones [facility] 10/22/2023 11:22:20 Date Recorded Heart rate Provider Name an d Address Organization Details Last Updated DateTime 10/22/2023 82 /min Kait Jones [facility] 08/0 08/2023 11:25:49 Date Recorded Oxygen saturation Oxygen saturation in Arterial blood by Pulse oximetry Provider Name and Address Organization Details Last Updated DateTime 10/22/2023 97 % 97 % Kait Jones ETIENNE [facility] 10/22/2023 11:25:50 Date Recorded Body height Provider Name an d Address Organization Details Last Updated DateTime 02/28/2024 160.02 cm Elida Perez [place] [facility] 02/28/2024 10:38:00 Date Recorded Body mass index (BMI) Body weight Provider Name and Address Organization Details Last Updated DateTime 02/28/2024 23.9 kg/m2 55315.33 g Elida Perez [facility] 10:47:37 Date Recorded Heart rate Provider Name an d Address Organization Details Last Updated DateTime 02/28/2024 88 /min Elida Perez [facility] 02/28/2024 10:49:39 Date Recorded Oxygen saturation Oxygen saturation in Arterial blood by Pulse oximetry Provider Name and Address Organization Details Last Updated DateTime 02/28/2024 99 % 99 % Elida Perez [facility] 02/27 10:49:44 Date Recorded Systolic blood pressure Diastolic blood pressure Provider Name and Address Organization Details Last Updated DateTime 06/19/2023 140 mm[Hg] 70 mm[Hg] Jinny ETIENNE Tatum [facility] 06/19/2023 11:16:52 Date Recorded Systolic blood pressure Diastolic blood pressure Provider Name and Address Organization Details Last Updated DateTime 07/24/2023 130 mm[Hg] 72 mm[Hg] Jinny Tatum [facility] 07/24/2023 11:25:59 Date Recorded Systolic blood pressure Diastolic blood pressure Provider Name and Address Organization Details Last Updated DateTime 10/22/2023 130 mm[Hg] 66 mm[Hg] Kait Jones [facility] 10/22/2023 11:28:22 Date Recorded Systolic blood pressure Diastolic blood pressure Provider Name and Address Organization Details Last Updated DateTime 02/28/2024 130 mm[Hg] 70 mm[Hg] Elida Perez [facility] 02/15 10:49:35 Social History Question Answer Notes LastModified by Organizat ion Details LastModified Time Tobacco Smoking Status Never Smoker Jinny Tatum [place] null, [facility] 06/19/2023 11:12:34 Do You Have An Advance Directive? Yes Information not available 07/24/2023 What Is Your Level Of Alcohol Consumption? None Information not available 06/19/2023 Are You Blind Or Do You Have Difficulty Seeing? No Information not available 06/19/2023 What Is Your Level Of Caffeine Consumption? None Information not available 07/24/2023 In The 14 Days Before Symptom Onset, Have You Had Close Contact With A Laboratory-confir med COVID-19 While That Case Was Ill? No Information not available 02/28/2024 In The 14 Days Before Symptom Onset, Have You Had Close Contact With A Person Who Is Under Investigation For COVID-19 While That Person Was Ill? No Information not available 02/28/2024 Have You Been To An Area Known To Be High Risk For COVID-19? No Information not available 02/28/2024 Are You Currently Employed? No Information not available 07/24/2023 Are You Deaf Or Do You Have Serious Difficulty Hearing? No Information not available 06/19/2023 What Type Of Diet Are You Following? REGULAR Information not available 07/24/2023 What Is The Highest Grade Or Level Of School You Have Completed Or The Highest Degree You Have Received? [id number] Information not available 07/24/2023 Are There Any Guns Present In Your Home? No Information not available 07/24/2023 In The Past 7 Days, How Many Days Did You Exercise? 4 Information not available 07/24/2023 On The Days When You Exercised, How Long Did You Exercise Each Day (in Minutes)? 30 Active Lifestyle Information not available 07/24/2023 How Intense Was Your Typical Exercise? Light (stretching Or Slow Walking) Information not available 07/24/2023 In The Past 7 Days, How Much Pain Have You [place]? Some Information not available 07/24/2023 In General, Would You Say You Health Is: Good Information not available 07/24/2023 How Would You Describe The Condition Of Your Mouth And Teeth- Including False Teeth Or Dentures? Good Information not available 07/24/2023 Each Night, How Many Hours Of Sleep Do You Get? 8 Information no t available 07/24/2023 Has Anyone Ever Told You That You Snore? Yes Information not available 07/24/2023 In The Past 7 Days, How Often Have You [place] Sleepy In The Daytime? Usually Information not available 07/24/2023 # Alcohol Drinks Per Week 0 Information not available 07/24/2023 What Was The Date Of Your Most Recent Tobacco Screening? 02/28/2024 Information not available 02/28/2024 What Is Your Relationship Status? Information not available 06/19/2023 Do You Use Your Seat Belt Or Car Seat Routinely? Yes Information not available 07/24/2023 Do You Have Smoke And Carbon Monoxide Detectors In Your Home? Yes Information not available 07/24/2023 Do You Feel Stressed (tense, Restless, Nervous, Or Anxious, Or Unable To Sleep At Night)? [id number] Information not available 07/24/2023 Do You Use Any Illicit Or Recreational Drugs? No Information not available 07/24/2023 Do You Use Sunscreen Routinely? No Information not available 07/24/2023 Has Tobacco Cessation Counseling Been Provided? No Information not available 07/24/2023 Do You Or Have You Ever Used Any Other Forms Of Tobacco Or Nicotine? No Information not available 07/24/2023 Sex: Female Functional Status Question Answer Note LastModified by Organization D etails LastModified Time Are you able to care for yourself? Yes Information not available 06/19/2023 What is your exercise level? Moderate Information not available 07/24/2023 Mental Status None recorded. Family History Relationship Description Onset Age of this Age Resolved Age Notes LastModified by Organization Details LastModified Time Son Diabetes mellitus [email or web address] Not available 2023 11:10:44 Father Alcohol abuse [email or web address] Not available 2023 11:10:53 Mother Alcohol abuse [email or web address] Not available 2023 11:10:53 Medical History Condition Response Coronary Artery Disease N Other N High Blood Pressure Y Atrial Fibrillation N Kidney or Bladder Problems N Thyroid Problems N GI Problems N Depression N COPD N Blood Clots N Skin Problems N Anemia N Heart Attack (AR) N Anxiety Disorder N Diabetes N Muscle, Joint, or Bone Problems N Seizures/Epilepsy N Acid Reflux (GERD) N Cancer N Stroke N Asthma N Allergies N High Cholesterol Y Hepatitis N Liver Disease N Headaches N Heart Failure N Osteoporosis Y Gynecological HistoryNo gynecological history recorded. Obstetrics History GPAL:G 0 P 0 0 0 0 Immunizations Vaccine Type Date Status Note Provider Nam e and Address Organization Details Recorded Time COVID-19, mRNA, LNP-S, PF, 100 mcg/0.5mL dose or 50 mcg/0.25mL dose 03/21/2021 completed [place], [place] - [facility] 07/23/2023 16:01:22 COVID-19, mRNA, LNP-S, PF, 30 mcg/0.3 mL dose 08/04/2020 completed Tiffanie [place] [facility] 07/23/2023 16:01:22 COVID-19, mRNA, LNP-S, PF, 30 mcg/0.3 mL dose 08/25/2020 completed Tiffanie [place] [facility] 07/23/2023 16:01:22 COVID-19, mRNA, LNP-S, bivalent, PF, 50 mcg/0.5 mL or 25mcg/0.25 mL dose 12/26/2021 completed Tiffanie [place] [facility] 07/23/2023 16:01:22 COVID-19, mRNA, LNP-S, PF, jill-sucrose, 30 mcg/0.3 mL 12/20/2022 completed Tiffanie [place] - [facility] 07/23/2023 16:01:22 Past Encounters Encounter ID Performer Location Encounter Start Date Encounter Closed Date Diagnosis/Indication Diagnosis SNOMED-CT Code Diagnosis ICD10 Code Diagnosis Note [id number] Jazmyn Clemens MD [facility] (Adult [facility]) [address] [place] [phone] 06/19/2023 10:36:25 06/19/2023 11:50:56 Essential hypertension 05133468 I10 Hyperlipidemia 39286739 E78.5 Osteoarthritis 060341535 M19.90 Mammogram declined 55924 5004 Z53.20 Colon canc er screening declined 2216855389 9109 Z53.20 [id number] MD Mariana London (Adult Med) [address] [place] [address] [phone] 0 07/24/2023 10:34:43 07/24/2023 12:53:27 Adult health examination 727495926 Z00.00 Health Risk Assessment collected and reviewed [id number] MD Mariana London (Adult Med) [address] [place] [address] [id number] 10/22/2023 10:57:03 10/22/2023 12:43:57 Essential hypertension 91440876 I10 Hyperlipidemia 36357795 E78.5 Osteoarthritis 910481452 M19.90 Colonoscopy declined 991 2382289 85874 Z53.20 Mammogram declined 33716 5004 Z53.20 [id number] [facility] [address] [place] [address] [id number] 02/28/2024 10:32:48 02/28/2024 12:11:26 Body mass index 20-24 - normal 935759554 Z68.23 Pre-surger y evaluation 133332096 Z01.818 Pain of le ft knee joint 9398971118 79618 M25.562 Essential hypertension 84465519 I10 Hyperlipidemia 11345906 E78.5 Health Concerns Section Related Observation LastModified by Organization Detai ls LastModified Time None Recorded Concern Status LastModified by Organization Details LastModified Time None Recorded Advance Directives Directive Y: Payers Encounter Date Sequence Insurance Name Policy Number Policy Andres Covered Member ID Andres Member ID Guarantor Name 06/19/2023 1 [facility] (MEDICARE REPLACEMENT/A DVANTAGE - HMO) [id number] Charla Quarles [id number] Charla Quarles 06/19/2023 2 [place] Charla Quarles [id number] Charla Quarles 07/24/2023 1 [facility] (MEDICARE REPLACEMENT/A DVANTAGE - HMO) [id number] Charla A Quarles [id number] Charla Quarles 07/24/2023 2 [place] Charla A Quarles [id number] Charla Quarles 10/22/2023 1 [facility] (MEDICARE REPLACEMENT/A DVANTAGE - HMO) [id number] Charla A Quarles [id number] Charla Quarles 10/22/2023 2 [place] Charla A Quarles [id number] Charla Quarles 02/28/2024 1 [facility] (MEDICARE REPLACEMENT/A DVANTAGE - HMO) [id number] Charla A Quarles [id number] Charla Quarles 02/28/2024 2 [place] Charla A Quarles [id number] Charla Quarles Notes Date Note Type Note Provider Name and Address Organization Details Recorded Time 06/19/2023 text/html 83-year-old with hypertension dyslipidemia and arthritis who comes in for continuity of care she has been taking her atorvastatin losartan and naproxen without any problem Jazmyn Clemens MD Attn: [address] [place], [address], [facility] 07/17/2023 22:16:07 07/24/2023 text/html MAW 2Reported bypatient.Diet and Nutrition:healthy diet Fracture Risk:no history of fractures; no sudden unexplained fractures Concentration and Memory:no decreased concentrating ability; no memory lapses or loss; does not forget words Speech/Motor difficulties:no speech difficulties; no difficulty expressing formulated concepts; no difficulty with fine manipulative tasks; no difficulty writing/copying; no slowed reaction time; does not knock things over when trying to pick them up Hearing:no loss of hearing Vision:worse near(glasses) Activities of Daily Living:able to bathe with limited or no assistance; able to contol urination and bowels; able to dress with limited or no assistance; able to feed self with limited or no assistance; able to get out of chair or bed with limited or no assistance; able to groom with limited or no assistance; able to toilet with limited or no assistance Instrumental Activities of Daily Living:able to do house work with limited or no assistance; able to grocery shop with limited or no assistance; able to manage medications with limited or no assistance; able to manage money with limited or no assistance; able to prepare meals with limited or no assistance; able to use the phone with limited or no assistance Falls Risk Assessment:no frequent falls while walking; no fall in the past year; no fall since last visit; no dizziness/vertigo Home Safety:reviewed sun protection; no unsafe winter hazzards; no unsafe stairs; working smoke/CO detectors; practicing 'safer sex'; no fire arms; has hand bars in the bathroom/shower; good lighting in the home Jazmyn Clemens MD Attn: [address] [place], [address], [facility] 07/29/2023 20:49:00 10/22/2023 text/html hypertension no headache dizziness or palpitations. 2. Hyperlipidemia takes the atorvastatin no side effects. Jazmyn Clemens MD Attn: [address]ing, [address] [place], [address], [facility] 11/09/2023 16:24:34 02/28/2024 text/html 1. Going to have cataract surgery no chest pain shortness of breath dizziness syncope or presyncope. 2. She fell a couple of weeks ago injured her left knee hard to walk on it slowly getting better but flexion extension still painful no numbness tingling or loss of function. 3. Hypertension blood pressure 130/70 no cardiopulmonary or neurological complaints 4. Osteoarthritis stable Naprosyn as needed Jazmyn Clemens MD Attn: [address]ing, [address] [place], [address], [facility] 02/29/2024 13:49:40 OBGyn Episode No OBEpisode recorded.
--- OUTSIDE RECORDS SUMMARY | 2024-04-09 09:01 | XMS_ITS | Data Portability ---
Author Organization ID - [facility] [employer] Main Office Address [address] [place] [address] Care Team Providers Care Developer Relations Manager Name Role Phone JAZMYN CLEMENS Primary Care Provider JAZMYN CLEMENS Referring Provider Assessment Encounter Date Assessment Date Assessment LastModified by Organization Details LastModified Time 08/27/2022 08/27/2022 Continue current therapy refuses any cancer screenings at this time specifically mammogram should blood pressure check in 3 weeks will see me in 6 months [email or web address] Not available 09/01/2022 21:01:15 02/18/2023 02/18/2023 X-ray knees Orthopedics blood work refuses any breast cancer or colon cancer screening follow-up 4 months [email or web address] Not available 02/23/2023 12:03:57 Plan of Treatment Reminders Order Date Submit Date Provider Last Modified By Organization Details Last Modified Time Details Appointments None recorded. Lab CBC w/ auto diff 2022 023 [facility] (Lab), [address] [place], [address], 3 16:47:17 lipid panel, serum 2022 023 [facility] (Lab), [address] [place], [address], 3 17:15:54 CMP, serum or plasma 2022 023 [facility] (Lab), [address] [place], [address], 3 17:15:50 CMP, serum or plasma 2022 023 [email or web address] [facility] (Lab), [address] [place], [address], 3 17:28:51 lipid panel, serum [address] (Lab), [address] [place], [address], 3 17:28:51 CBC w/ auto diff [address] (Lab), [address] [place], [address], 3 17:28:51 Referral orthopedic surgeon referral 2022 023 [email or web address] Sivakumar Jaime MD, [address], [facility] [place], [address], 4 19:04:54 Procedures None recorded. Surgeries None recorded. Imaging XR, knee 2022 023 [facility] ([facility]), [address] [place], [address], 3 10:14:42 Medication Orders losartan 50 mg tablet 2022 023 [id number] [id number] [place], [address] [place], [address], 3 13:49:59 Patient TargetsNo targets recorded. Patient InstructionsNo instructions recorded. Reason for Referral Orthopedic Surgeon Referral for Pain of bilateral knee joints Referring Physician: Jazmyn Clemens, Internal Medicine, Encounter Date: 02/18/2023 Results Created Date Observation Date Name Description Value Unit Range Abnormal Flag Note LastModifiedBy Organization Detail LastModifiedTime 03/20/19 23 03/20/2022 COMPR EHENS JESSICA METAB OLIC PANEL sodium 140 mmol/ L 137-14 5 Not Available [facility] (Lab) [address] [place], [address], 03/20/2022 12:43:23 03/20/19 23 03/20/2022 COMPR EHENS JESSICA METAB OLIC PANEL potassium 4.1 mmol/ L 3.5-5. 1 Not Available [facility] (Lab) [address] [place], [address], 03/20/2022 12:43:23 03/20/19 23 03/20/2022 COMPR EHENS JESSICA METAB OLIC PANEL chloride 107 mmol/ L 98-107 Not Available [facility] (Lab) [address] [place], [address], 03/20/2022 12:43:23 03/20/19 23 03/20/2022 COMPR EHENS JESSICA METAB OLIC PANEL carbon dioxide 24 mmol/ L 22-30 Not Available [facility] (Lab) [address] [place], [address], 03/20/2022 12:43:23 03/20/19 23 03/20/2022 COMPR EHENS JESSICA METAB OLIC PANEL anion gap 13.1 mmol/ L 14-22 low Not Available [facility] (Lab) [address] [place], [address], 03/20/2022 12:43:23 03/20/19 23 03/20/2022 COMPR EHENS JESSICA METAB OLIC PANEL glucose 90 mg/dL 70-99 Not Available [facility] (Lab) [address] [place], [address], 03/20/2022 12:43:23 03/20/19 23 03/20/2022 COMPR EHENS JESSICA METAB OLIC PANEL BUN 22 mg/dL 8-19 high Not Available [facility] (Lab) [address] [place], [address], 03/20/2022 12:43:23 03/20/19 23 03/20/2022 COMPR EHENS JESSICA METAB OLIC PANEL creatinine 0.77 mg/dL 0.66-1 .25 Not Available [facility] (Lab) [address] [place], [address], 03/20/2022 12:43:23 03/20/19 23 03/20/2022 COMPR EHENS JESSICA METAB OLIC PANEL GFR >60 Refer ence Range : [place] ge GFR Healt hy Adult : >60 mL/mi n/1.7 3 m2 Chron ic Kidne y Disea se: 15-60 mL/mi n/1.7 3 m2 Kidne y Failu re: <15/m L/min /1.73 m2 www.n iddk. nih.g ov The MDRD study equat ion has not been valid ated in child clarissa <18 years of age; pregn ant women ; the elder ly >85 years of age; or in some racia l or ethni c subgr oups, such as Hispa nics. Outsi de the valid ated nanda eters , estim ated GFR is less accur ate, requi ring clini joe judgm ent on a case- by-ca se basis . Clini joe inter preta tion for other races and ages must be made by the clini merritt. The MDRD study equat ion has not been valid ated for the evalu ation of serum creat inine relat ed to nutri ambrosio l statu s or medic ation usage . For perso ns <18 years of age, a pedia tric GFR calcu lator is avail able on the F websi te: https ://lincoln w.kid marlene.o rg/pr ofess ional s/kdo qi/gf r_cal culat or Not Available [facility] (Lab) [address] [place], [address], 03/20/2022 12:43:23 03/20/19 23 03/20/2022 COMPR EHENS JESSICA METAB OLIC PANEL alkaline phosphatase 61 U/L 38-126 Not Available [facility] (Lab) [address] [place], [address], 03/20/2022 12:43:23 03/20/19 23 03/20/2022 COMPR EHENS JESSICA METAB OLIC PANEL alanine aminotransfe rase 17 U/L 0-35 Not Available [facility] (Lab) [address] [place], [address], 03/20/2022 12:43:23 03/20/19 23 03/20/2022 COMPR EHENS JESSICA METAB OLIC PANEL aspartate aminotransfe rase 19 U/L 15-37 Not Available [facility] (Lab) [address] [place], [address], 03/20/2022 12:43:23 03/20/19 23 03/20/2022 COMPR EHENS JESSICA METAB OLIC PANEL bilirubin, total 0.60 mg/dL 0.20-1 .30 Not Available [facility] (Lab) [address] [place], [address], 03/20/2022 12:43:23 03/20/19 23 03/20/2022 COMPR EHENS JESSICA METAB OLIC PANEL calcium 9.1 mg/dL 8.4-10 .2 Not Available [facility] (Lab) [address] [place], [address], 03/20/2022 12:43:23 03/20/19 23 03/20/2022 COMPR EHENS JESSICA METAB OLIC PANEL total protein 6.5 g/dL 6.3-8. 2 Not Available [facility] (Lab) [address] [place], [address], 03/20/2022 12:43:23 03/20/19 23 03/20/2022 COMPR EHENS JESSICA METAB OLIC PANEL albumin 4.1 g/dL 3.0-4. 4 Not Available [facility] (Lab) [address] [place], [address], 03/20/2022 12:43:23 03/20/19 23 03/20/2022 COMPR EHENS JESSICA METAB OLIC PANEL globulin 2.4 g/dL 2.6-4. 2 low Not Available [facility] (Lab) [address] [place], [address], 03/20/2022 12:43:23 03/20/19 23 03/20/2022 COMPR EHENS JESSICA METAB OLIC PANEL A/G ratio 1.7 ratio 1.0-2. 0 Not Available [facility] (Lab) [address] [place], [address], 03/20/2022 12:43:23 03/20/19 23 03/20/2022 SEDIM ENTAT ION RATE erythrocyte sedimentatio n rate 12 mm/HR 0-20 Not Available [facility] (Lab) [address] [place], [address], 03/20/2022 12:30:05 03/20/19 23 03/20/2022 C REACT JESSICA PROTE IN,UL TRA SENS C-reactive protein 0.14 mg/dL 0.0-0. 5 Not Available [facility] (Lab) [address] [place], [address], 03/20/2022 12:54:39 03/20/19 23 03/20/2022 URIC ACID SERUM uric acid 4.7 mg/dL 2.5-6. 2 Not Available [facility] (Lab) [address] [place], [address], 03/20/2022 12:43:31 03/20/19 23 03/20/2022 LIPID PANEL cholesterol 235 mg/dL 140-19 9 high NIH FRANK NSUS RECOM MENDA TION FOR FRANCO STERO L: ADULT CHILD LOW RISK: <200 <170 BORDE RLINE : <200- 239 ----- HIGH RISK: >240 >200 Not Available [facility] (Lab) [address] [place], [address], 03/20/2022 12:43:27 03/20/19 23 03/20/2022 LIPID PANEL triglyceride s 139 mg/dL 0-150 NIH FRANK NSUS REPOR T RECOM MENDA TION FOR TRIGL YCERI JOVANI: ADULT CHILD LOW RISK: <150 ----- BODER LINE: 150-1 99 ----- HIGH RISK: >200 ----- Not Available [facility] (Lab) [address] [place], [address], 03/20/2022 12:43:27 03/20/19 23 03/20/2022 LIPID PANEL HDL cholesterol 59 mg/dL 40- Not Available [facility] (Lab) [address] [place], [address], 03/20/2022 12:43:27 03/20/19 23 03/20/2022 LIPID PANEL LDL cholesterol, calculated 148 mg/dL 0-130 high NIH FRANK NSUS REPOR T RECOM MENDA TIONS FOR LDL: ADULT CHILD LOW RISK <130 <110 (OPTI MAL LDL) <100 ----- BORDE RLINE : 130-1 59 ----- HIGH RISK: >160 >130 A TRIGL YCERI DE RESUL T >400 INVAL IDATE S THE CALCU LATIO N FOR LDL FRACT IONAT ION - THE LDL RESUL T WILL NOT BE REPOR SHERI. Not Available [facility] (Lab) [address] [place], [address], 03/20/2022 12:43:27 03/20/19 23 03/20/2022 CBC/C OMPLE TE BLD COUNT W/DIF F white blood cells 4.5 x10'3 /uL 4.2-10 .8 Not Available [facility] (Lab) [address] [place], [address], 03/20/2022 11:55:21 03/20/19 23 03/20/2022 CBC/C OMPLE TE BLD COUNT W/DIF F red blood cells 4.56 x10'6 /uL 3.80-5 .20 Not Available [facility] (Lab) [address] [place], [address], 03/20/2022 11:55:21 03/20/19 23 03/20/2022 CBC/C OMPLE TE BLD COUNT W/DIF F hemoglobin 14.0 g/dL 12.0-1 5.6 Not Available [facility] (Lab) [address] [place], [address], 03/20/2022 11:55:21 03/20/19 23 03/20/2022 CBC/C OMPLE TE BLD COUNT W/DIF F hematocrit 42.8 % 35.7-4 5.7 Not Available [facility] (Lab) [address] [place], [address], 03/20/2022 11:55:21 03/20/19 23 03/20/2022 CBC/C OMPLE TE BLD COUNT W/DIF F mean red cell volume 93.9 fL 82.0-9 9.0 Not Available [facility] (Lab) [address] [place], [address], 03/20/2022 11:55:21 03/20/1903/20/2022 CBC/C OMPLE TE BLD COUNT W/DIF F mean red cell hemoglobin 30.7 pg 27.0-3 3.0 Not Available [facility] (Lab) [address] [place], [address], 03/20/2022 11:55:21 03/20/19 23 03/20/2022 CBC/C OMPLE TE BLD COUNT W/DIF F mean RBC HGB concentratio n 32.7 g/dL 31.0-3 6.0 Not Available [facility] (Lab) [address] [place], [address], 03/20/2022 11:55:21 03/20/19 23 03/20/2022 CBC/C OMPLE TE BLD COUNT W/DIF F red cell distribution width 12.2 % 11.8-1 5.5 Not Available [facility] (Lab) [address] [place], [address], 03/20/2022 11:55:21 03/20/19 23 03/20/2022 CBC/C OMPLE TE BLD COUNT W/DIF F platelets 187 x10'3 /uL 150-40 0 Not Available [facility] (Lab) [address] [place], [address], 03/20/2022 11:55:21 03/20/1903/20/2022 CBC/C OMPLE TE BLD COUNT W/DIF F mean platelet volume 9.9 fL 9.0-12 .4 Not Available [facility] (Lab) [address] [place], [address], 03/20/2022 11:55:21 03/20/1903/20/2022 CBC/C OMPLE TE BLD COUNT W/DIF F neutrophils 64.7 % 39.0-7 2.0 Not Available [facility] (Lab) [address] [place], [address], 03/20/2022 11:55:21 03/20/1903/20/2022 CBC/C OMPLE TE BLD COUNT W/DIF F lymphocytes 26.0 % 16.0-4 7.0 Not Available [facility] (Lab) [address] [place], [address], 03/20/2022 11:55:21 03/20/1903/20/2022 CBC/C OMPLE TE BLD COUNT W/DIF F monocytes 6.5 % 5.0-12 .0 Not Available [facility] (Lab) [address] [place], [address], 03/20/2022 11:55:21 03/20/1903/20/2022 CBC/C OMPLE TE BLD COUNT W/DIF F eosinophils 1.3 % 1.0-7. 0 Not Available [facility] (Lab) [address] [place], [address], 03/20/2022 11:55:21 03/20/19 23 03/20/2022 CBC/C OMPLE TE BLD COUNT W/DIF F basophils 1.3 % 0.0-2. 0 Not Available [facility] (Lab) [address] [place], [address], 03/20/2022 11:55:21 03/20/1903/20/2022 CBC/C OMPLE TE BLD COUNT W/DIF F immature granulocytes 0.2 % 0.00-0 .50 Not Available [facility] (Lab) [address] [place], [address], 03/20/2022 11:55:21 03/20/1903/20/2022 CBC/C OMPLE TE BLD COUNT W/DIF F neutrophils, absolute count 2.89 x10'3 /uL 1.5-8. 0 Not Available [facility] (Lab) [address] [place], [address], 03/20/2022 11:55:21 03/20/19 23 03/20/2022 CBC/C OMPLE TE BLD COUNT W/DIF F lymphocytes, absolute count 1.16 x10'3 /uL 1.07-3 .43 Not Available [facility] (Lab) [address] [place], [address], 03/20/2022 11:55:21 03/20/1903/20/2022 CBC/C OMPLE TE BLD COUNT W/DIF F monocytes, absolute count 0.29 x10'3 /uL 0.29-0 .99 Not Available [facility] (Lab) [address] [place], [address], 03/20/2022 11:55:21 03/20/19 23 03/20/2022 CBC/C OMPLE TE BLD COUNT W/DIF F eosinophils, absolute count 0.06 x10'3 /uL 0.02-0 .53 Not Available [facility] (Lab) [address] [place], [address], 03/20/2022 11:55:21 03/20/19 23 03/20/2022 CBC/C OMPLE TE BLD COUNT W/DIF F basophils, absolute count 0.06 x10'3 /uL 0.01-0 .08 Not Available [facility] (Lab) [address] [place], [address], 03/20/2022 11:55:21 03/20/19 23 03/20/2022 CBC/C OMPLE TE BLD COUNT W/DIF F immature granulocytes ,absolute 0.01 x10'3 /uL 0.00-0 .05 Not Available [facility] (Lab) [address] [place], [address], 03/20/2022 11:55:21 03/20/19 23 03/20/2022 CBC/C OMPLE TE BLD COUNT W/DIF F nucleated red blood cells 0.0 % -0 Not Available [facility] (Lab) [address] [place], [address], 03/20/2022 11:55:21 03/20/19 23 03/20/2022 CBC/C OMPLE TE BLD COUNT W/DIF F NRBC# 0.00 x10'3 /uL Not Available [facility] (Lab) [address] [place], [address], 03/20/2022 11:55:21 04/25/19 23 05/02/2022 OVA + CYNDI ITE EXAM ova + parasite exam final report These resul ts were obtai anny using wet prepa ratio n(s) and trich truong stain ed smear . This test does not inclu de testi ng for Crypt ospor idium parvu m, Cyclo spora , or Micro spori santi. Not Available [facility] (Lab) [address] [place], [address], 05/02/2022 13:10:26 04/25/19 23 05/02/2022 OVA + CYNDI ITE EXAM result 1 commen t No ova, cysts , or cyndi ites seen. . One negat jessica speci men does not rule out the possi bilit y of a cyndi itic infec tion. [facility] at: [facility] [address] [facility], [place] [address] Lab Direc tor: Crow syed PhD, Phone : [phone] Not Available [facility] (Lab) [address] [place], [address], 05/02/2022 13:10:26 04/25/19 23 04/26/2022 SHIGA (E.CO LI) TOXIN STOOL toxin 1 negati ve Not Available [facility] (Lab) [address] [place], [address], 04/26/2022 10:19:45 04/25/19 23 04/26/2022 SHIGA (E.CO LI) TOXIN STOOL toxin 2 negati ve THIS TEST IS FOR THE RAPID DETEC TION OF SHIGA TOXIN -PROD UCING STRAI NS OF ENTER OHEMO RRAGH IC E. COLI. Not Available [facility] (Lab) [address] [place], [address], 04/26/2022 10:19:45 04/25/19 23 04/26/2022 SHIGA (E.CO LI) TOXIN STOOL QC pos positi ve Not Available [facility] (Lab) [address] [place], [address], 04/26/2022 10:19:45 04/25/19 23 04/26/2022 SHIGA (E.CO LI) TOXIN STOOL QC neg negati ve Not Available [facility] (Lab) [address] [place], [address], 04/26/2022 10:19:45 04/25/1904/25/2022 C DIFFI CILE TOXIN /EPI, DNA toxigenic C.difficile negati ve Not Available [facility] (Lab) [address] [place], [address], 04/25/2022 13:52:17 04/25/19 23 04/25/2022 C DIFFI CILE TOXIN /EPI, DNA 027-nap1-bi strain negati ve 027-N API-B 1 STRAI N RESUL TS ARE CONSI DERED TO BE PRESU MPTIV E. Not Available [facility] (Lab) [address] [place], [address], 04/25/2022 13:52:17 08/28/19 23 08/27/2022 CBC/C OMPLE TE BLD COUNT W/DIF F white blood cells 5.8 x10'3 /uL 4.2-10 .8 Not Available [facility] (Lab) [address] [place], [address], 08/27/2022 16:47:17 08/28/19 23 08/27/2022 CBC/C OMPLE TE BLD COUNT W/DIF F red blood cells 5.04 x10'6 /uL 3.80-5 .20 Not Available [facility] (Lab) [address] [place], [address], 08/27/2022 16:47:17 08/28/19 23 08/27/2022 CBC/C OMPLE TE BLD COUNT W/DIF F hemoglobin 15.7 g/dL 12.0-1 5.6 high Not Available [facility] (Lab) [address] [place], [address], 08/27/2022 16:47:17 08/28/19 23 08/27/2022 CBC/C OMPLE TE BLD COUNT W/DIF F hematocrit 48.5 % 35.7-4 5.7 high Not Available [facility] (Lab) [address] [place], [address], 08/27/2022 16:47:17 08/28/19 23 08/27/2022 CBC/C OMPLE TE BLD COUNT W/DIF F mean red cell volume 96.2 fL 82.0-9 9.0 Not Available [facility] (Lab) [address] [place], [address], 08/27/2022 16:47:17 08/28/19 23 08/27/2022 CBC/C OMPLE TE BLD COUNT W/DIF F mean red cell hemoglobin 31.2 pg 27.0-3 3.0 Not Available [facility] (Lab) [address] [place], [address], 08/27/2022 16:47:17 08/28/19 23 08/27/2022 CBC/C OMPLE TE BLD COUNT W/DIF F mean RBC HGB concentratio n 32.4 g/dL 31.0-3 6.0 Not Available [facility] (Lab) [address] [place], [address], 08/27/2022 16:47:17 08/28/19 23 08/27/2022 CBC/C OMPLE TE BLD COUNT W/DIF F red cell distribution width 12.4 % 11.8-1 5.5 Not Available [facility] (Lab) [address] [place], [address], 08/27/2022 16:47:17 08/28/1908/27/2022 CBC/C OMPLE TE BLD COUNT W/DIF F platelets 182 x10'3 /uL 150-40 0 Not Available [facility] (Lab) [address] [place], [address], 08/27/2022 16:47:17 08/28/1908/27/2022 CBC/C OMPLE TE BLD COUNT W/DIF F mean platelet volume 10.8 fL 9.0-12 .4 Not Available [facility] (Lab) [address] [place], [address], 08/27/2022 16:47:17 08/28/1908/27/2022 CBC/C OMPLE TE BLD COUNT W/DIF F neutrophils 67.1 % 39.0-7 2.0 Not Available [facility] (Lab) [address] [place], [address], 08/27/2022 16:47:17 08/28/1908/27/2022 CBC/C OMPLE TE BLD COUNT W/DIF F lymphocytes 25.3 % 16.0-4 7.0 Not Available [facility] (Lab) [address] [place], [address], 08/27/2022 16:47:17 08/28/1908/27/2022 CBC/C OMPLE TE BLD COUNT W/DIF F monocytes 5.2 % 5.0-12 .0 Not Available [facility] (Lab) [address] [place], [address], 08/27/2022 16:47:17 08/28/1908/27/2022 CBC/C OMPLE TE BLD COUNT W/DIF F eosinophils 1.2 % 1.0-7. 0 Not Available [facility] (Lab) [address] [place], [address], 08/27/2022 16:47:17 08/28/1908/27/2022 CBC/C OMPLE TE BLD COUNT W/DIF F basophils 0.9 % 0.0-2. 0 Not Available [facility] (Lab) [address] [place], [address], 08/27/2022 16:47:17 08/28/1908/27/2022 CBC/C OMPLE TE BLD COUNT W/DIF F immature granulocytes 0.3 % 0.00-0 .50 Not Available [facility] (Lab) [address] [place], [address], 08/27/2022 16:47:17 08/28/19 23 08/27/2022 CBC/C OMPLE TE BLD COUNT W/DIF F neutrophils, absolute count 3.91 x10'3 /uL 1.5-8. 0 Not Available [facility] (Lab) [address] [place], [address], 08/27/2022 16:47:17 08/28/19 23 08/27/2022 CBC/C OMPLE TE BLD COUNT W/DIF F lymphocytes, absolute count 1.47 x10'3 /uL 1.07-3 .43 Not Available [facility] (Lab) [address] [place], [address], 08/27/2022 16:47:17 08/28/19 23 08/27/2022 CBC/C OMPLE TE BLD COUNT W/DIF F monocytes, absolute count 0.30 x10'3 /uL 0.29-0 .99 Not Available [facility] (Lab) [address] [place], [address], 08/27/2022 16:47:17 08/28/1908/27/2022 CBC/C OMPLE TE BLD COUNT W/DIF F eosinophils, absolute count 0.07 x10'3 /uL 0.02-0 .53 Not Available [facility] (Lab) [address] [place], [address], 08/27/2022 16:47:17 08/28/1908/27/2022 CBC/C OMPLE TE BLD COUNT W/DIF F basophils, absolute count 0.05 x10'3 /uL 0.01-0 .08 Not Available [facility] (Lab) [address] [place], [address], 08/27/2022 16:47:17 08/28/19 23 08/27/2022 CBC/C OMPLE TE BLD COUNT W/DIF F immature granulocytes ,absolute 0.02 x10'3 /uL 0.00-0 .05 Not Available [facility] (Lab) [address] [place], [address], 08/27/2022 16:47:17 08/28/19 23 08/27/2022 CBC/C OMPLE TE BLD COUNT W/DIF F nucleated red blood cells 0.0 % -0 Not Available [facility] (Lab) [address] [place], [address], 08/27/2022 16:47:17 08/28/19 23 08/27/2022 CBC/C OMPLE TE BLD COUNT W/DIF F NRBC# 0.00 x10'3 /uL Not Available [facility] (Lab) [address] [place], [address], 08/27/2022 16:47:17 08/28/19 23 08/27/2022 COMPR EHENS JESSICA METAB OLIC PANEL sodium 139 mmol/ L 137-14 5 Not Available [facility] (Lab) [address] [place], [address], 08/27/2022 17:15:50 08/28/19 23 08/27/2022 COMPR EHENS JESSICA METAB OLIC PANEL potassium 4.1 mmol/ L 3.5-5. 1 Not Available [facility] (Lab) [address] [place], [address], 08/27/2022 17:15:50 08/28/19 23 08/27/2022 COMPR EHENS JESSICA METAB OLIC PANEL chloride 104 mmol/ L 98-107 Not Available [facility] (Lab) [address] [place], [address], 08/27/2022 17:15:50 08/28/19 23 08/27/2022 COMPR EHENS JESSICA METAB OLIC PANEL carbon dioxide 24 mmol/ L 22-30 Not Available [facility] (Lab) [address] [place], [address], 08/27/2022 17:15:50 08/28/19 23 08/27/2022 COMPR EHENS JESSICA METAB OLIC PANEL anion gap 15.1 mmol/ L 14-22 Not Available [facility] (Lab) [address] [place], [address], 08/27/2022 17:15:50 08/28/19 23 08/27/2022 COMPR EHENS JESSICA METAB OLIC PANEL glucose 84 mg/dL 70-99 Not Available [facility] (Lab) [address] [place], [address], 08/27/2022 17:15:50 08/28/19 23 08/27/2022 COMPR EHENS JESSICA METAB OLIC PANEL BUN 24 mg/dL 8-19 high Not Available [facility] [place] (Lab) [address] [place], [address], 08/27/2022 17:15:50 08/28/19 23 08/27/2022 COMPR EHENS JESSICA METAB OLIC PANEL creatinine 0.77 mg/dL 0.66-1 .25 Not Available [facility] [place] (Lab) [address] [place], [address], 08/27/2022 17:15:50 08/28/19 23 08/27/2022 COMPR EHENS JESSICA METAB OLIC PANEL GFR >60 Refer ence Range : [place] ge GFR Healt hy Adult : >60 mL/mi n/1.7 3 m2 Chron ic Kidne y Disea se: 15-60 mL/mi n/1.7 3 m2 Kidne y Failu re: <15/m L/min /1.73 m2 [email or web address] The MDRD study equat ion has not been valid ated in child clarissa <18 years of age; pregn ant women ; the elder ly >85 years of age; or in some racia l or ethni c subgr oups, such as Hispa nics. Outsi de the valid ated nanda eters , estim ated GFR is less accur ate, requi ring clini joe judgm ent on a case- by-ca se basis . Clini joe inter preta tion for other races and ages must be made by the clini merritt. The MDRD study equat ion has not been valid ated for the evalu ation of serum creat inine relat ed to nutri ambrosio l statu s or medic ation usage . For perso ns <18 years of age, a pedia tric GFR calcu lator is avail able on the [facility] websi te: [email or web address] :[email or web address] rg/pr ofess ional s/kdo qi/gf r_cal culat or Not Available [facility] (Lab) [address] [place], [address], 08/27/2022 17:15:50 08/28/19 23 08/27/2022 COMPR EHENS JESSICA METAB OLIC PANEL alkaline phosphatase 59 U/L 38-126 Not Available [facility] (Lab) [address] [place], [address], 08/27/2022 17:15:50 08/28/19 23 08/27/2022 COMPR EHENS JESSICA METAB OLIC PANEL alanine aminotransfe rase 16 U/L 0-35 Not Available [facility] (Lab) [address] [place], [address], 08/27/2022 17:15:50 08/28/19 23 08/27/2022 COMPR EHENS JESSICA METAB OLIC PANEL aspartate aminotransfe rase 21 U/L 15-37 Not Available [facility] (Lab) [address] [place], [address], 08/27/2022 17:15:50 08/28/19 23 08/27/2022 COMPR EHENS JESSICA METAB OLIC PANEL bilirubin, total 0.60 mg/dL 0.20-1 .30 Not Available [facility] (Lab) [address] [place], [address], 08/27/2022 17:15:50 08/28/19 23 08/27/2022 COMPR EHENS JESSICA METAB OLIC PANEL calcium 9.6 mg/dL 8.4-10 .2 Not Available [facility] (Lab) [address] [place], [address], 08/27/2022 17:15:50 08/28/19 23 08/27/2022 COMPR EHENS JESSICA METAB OLIC PANEL total protein 7.1 g/dL 6.3-8. 2 Not Available [facility] (Lab) [address] [place], [address], 08/27/2022 17:15:50 08/28/19 23 08/27/2022 COMPR EHENS JESSICA METAB OLIC PANEL albumin 4.2 g/dL 3.0-4. 4 Not Available [facility] (Lab) [address] [place], [address], 08/27/2022 17:15:50 08/28/19 23 08/27/2022 COMPR EHENS JESSICA METAB OLIC PANEL globulin 2.9 g/dL 2.6-4. 2 Not Available [facility] (Lab) [address] [place], [address], 08/27/2022 17:15:50 08/28/19 23 08/27/2022 COMPR EHENS JESSICA METAB OLIC PANEL A/G ratio 1.4 ratio 1.0-2. 0 Not Available [facility] (Lab) [address] [place], [address], 08/27/2022 17:15:50 08/28/19 23 08/27/2022 LIPID PANEL cholesterol 222 mg/dL 140-19 9 high NIH FRANK NSUS RECOM MENDA TION FOR FRANCO STERO L: ADULT CHILD LOW RISK: <200 <170 BORDE RLINE : <200- 239 ----- HIGH RISK: >240 >200 Not Available [facility] (Lab) [address] [place], [address], 08/27/2022 17:15:54 08/28/19 23 08/27/2022 LIPID PANEL triglyceride s 183 mg/dL 0-150 high NIH FRANK NSUS REPOR T RECOM MENDA TION FOR TRIGL YCERI JOVANI: ADULT CHILD LOW RISK: <150 ----- BODER LINE: 150-1 99 ----- HIGH RISK: >200 ----- Not Available [facility] (Lab) [address] [place], [address], 08/27/2022 17:15:54 08/28/19 23 08/27/2022 LIPID PANEL HDL cholesterol 64 mg/dL 40- Not Available [facility] (Lab) [address] [place], [address], 08/27/2022 17:15:54 08/28/19 23 08/27/2022 LIPID PANEL LDL cholesterol, calculated 121 mg/dL 0-130 NIH FRANK NSUS REPOR T RECOM MENDA TIONS FOR LDL: ADULT CHILD LOW RISK <130 <110 (OPTI MAL LDL) <100 ----- BORDE RLINE : 130-1 59 ----- HIGH RISK: >160 >130 A TRIGL YCERI DE RESUL T >400 INVAL IDATE S THE CALCU LATIO N FOR LDL FRACT IONAT ION - THE LDL RESUL T WILL NOT BE REPOR SHERI. Not Available [facility] (Lab) [address] [place], [address], 08/27/2022 17:15:54 02/19/20 23 02/18/2023 CBC/C OMPLE TE BLD COUNT W/DIF F white blood cells 6.4 x10'3 /uL 4.2-10 .8 Not Available [facility] (Lab) [address] [place], [address], 02/18/2023 13:13:53 02/19/20 23 02/18/2023 CBC/C OMPLE TE BLD COUNT W/DIF F red blood cells 4.62 x10'6 /uL 3.80-5 .20 Not Available [facility] (Lab) [address] [place], [address], 02/18/2023 13:13:53 02/19/20 23 02/18/2023 CBC/C OMPLE TE BLD COUNT W/DIF F hemoglobin 14.8 g/dL 12.0-1 5.6 Not Available [facility] (Lab) [address] [place], [address], 02/18/2023 13:13:53 02/19/20 23 02/18/2023 CBC/C OMPLE TE BLD COUNT W/DIF F hematocrit 45.0 % 35.7-4 5.7 Not Available [facility] (Lab) [address] [place], [address], 02/18/2023 13:13:53 02/19/20 23 02/18/2023 CBC/C OMPLE TE BLD COUNT W/DIF F mean red cell volume 97.4 fL 82.0-9 9.0 Not Available [facility] (Lab) [address] [place], [address], 02/18/2023 13:13:53 02/19/20 23 02/18/2023 CBC/C OMPLE TE BLD COUNT W/DIF F mean red cell hemoglobin 32.0 pg 27.0-3 3.0 Not Available [facility] (Lab) [address] [place], [address], 02/18/2023 13:13:53 02/19/20 23 02/18/2023 CBC/C OMPLE TE BLD COUNT W/DIF F mean RBC HGB concentratio n 32.9 g/dL 31.0-3 6.0 Not Available [facility] (Lab) [address] [facility] [place], [address], 02/18/2023 13:13:53 02/19/20 23 02/18/2023 CBC/C OMPLE TE BLD COUNT W/DIF F red cell distribution width 12.1 % 11.8-1 5.5 Not Available [facility] (Lab) [address] [place], [address], 02/18/2023 13:13:53 02/19/20 23 02/18/2023 CBC/C OMPLE TE BLD COUNT W/DIF F platelets 178 x10'3 /uL 150-40 0 Not Available [facility] (Lab) [address] [place], [address], 02/18/2023 13:13:53 02/19/20 23 02/18/2023 CBC/C OMPLE TE BLD COUNT W/DIF F mean platelet volume 9.8 fL 9.0-12 .4 Not Available [facility] (Lab) [address] [place], [address], 02/18/2023 13:13:53 02/19/20 23 02/18/2023 CBC/C OMPLE TE BLD COUNT W/DIF F neutrophils 68.6 % 39.0-7 2.0 Not Available [facility] (Lab) [address] [place], [address], 02/18/2023 13:13:53 02/19/20 23 02/18/2023 CBC/C OMPLE TE BLD COUNT W/DIF F lymphocytes 22.4 % 16.0-4 7.0 Not Available [facility] (Lab) [address] [place], [address], 02/18/2023 13:13:53 02/19/20 23 02/18/2023 CBC/C OMPLE TE BLD COUNT W/DIF F monocytes 6.1 % 5.0-12 .0 Not Available [facility] (Lab) [address] [place], [address], 02/18/2023 13:13:53 02/19/20 23 02/18/2023 CBC/C OMPLE TE BLD COUNT W/DIF F eosinophils 1.3 % 1.0-7. 0 Not Available [facility] (Lab) [address] [place], [address], 02/18/2023 13:13:53 02/19/20 23 02/18/2023 CBC/C OMPLE TE BLD COUNT W/DIF F basophils 0.8 % 0.0-2. 0 Not Available [facility] (Lab) [address] [place], [address], 02/18/2023 13:13:53 02/19/2002/18/2023 CBC/C OMPLE TE BLD COUNT W/DIF F immature granulocytes 0.8 % 0.00-0 .50 high Not Available [facility] (Lab) [address] [place], [address], 02/18/2023 13:13:53 02/19/2002/18/2023 CBC/C OMPLE TE BLD COUNT W/DIF F neutrophils, absolute count 4.38 x10'3 /uL 1.5-8. 0 Not Available [facility] (Lab) [address] [place], [address], 02/18/2023 13:13:53 02/19/20 23 02/18/2023 CBC/C OMPLE TE BLD COUNT W/DIF F lymphocytes, absolute count 1.43 x10'3 /uL 1.07-3 .43 Not Available [facility] (Lab) [address] [place], [address], 02/18/2023 13:13:53 02/19/20 23 02/18/2023 CBC/C OMPLE TE BLD COUNT W/DIF F monocytes, absolute count 0.39 x10'3 /uL 0.29-0 .99 Not Available [facility] (Lab) [address] [place], [address], 02/18/2023 13:13:53 02/19/20 23 02/18/2023 CBC/C OMPLE TE BLD COUNT W/DIF F eosinophils, absolute count 0.08 x10'3 /uL 0.02-0 .53 Not Available [facility] (Lab) [address] [place], [address], 02/18/2023 13:13:53 02/19/2002/18/2023 CBC/C OMPLE TE BLD COUNT W/DIF F basophils, absolute count 0.05 x10'3 /uL 0.01-0 .08 Not Available [facility] (Lab) [address] [place], [address], 02/18/2023 13:13:53 02/19/20 23 02/18/2023 CBC/C OMPLE TE BLD COUNT W/DIF F immature granulocytes ,absolute 0.05 x10'3 /uL 0.00-0 .05 Not Available [facility] (Lab) [address] [place], [address], 02/18/2023 13:13:53 02/19/20 23 02/18/2023 CBC/C OMPLE TE BLD COUNT W/DIF F nucleated red blood cells 0.0 % -0 Not Available [facility] (Lab) [address] [place], [address], 02/18/2023 13:13:53 02/19/20 23 02/18/2023 CBC/C OMPLE TE BLD COUNT W/DIF F NRBC# 0.00 x10'3 /uL Not Available [facility] (Lab) [address] [place], [address], 02/18/2023 13:13:53 02/19/20 23 02/18/2023 COMPR EHENS JESSICA METAB OLIC PANEL sodium 139 mmol/ L 137-14 5 Not Available [facility] (Lab) [address] [place], [address], 02/18/2023 13:37:40 02/19/20 23 02/18/2023 COMPR EHENS JESSICA METAB OLIC PANEL potassium 4.2 mmol/ L 3.5-5. 1 Not Available [facility] (Lab) [address] [place], [address], 02/18/2023 13:37:40 02/19/20 23 02/18/2023 COMPR EHENS JESISCA METAB OLIC PANEL chloride 103 mmol/ L 98-107 Not Available [facility] (Lab) [address] [place], [address], 02/18/2023 13:37:40 02/19/20 23 02/18/2023 COMPR EHENS JESSICA METAB OLIC PANEL carbon dioxide 26 mmol/ L 22-30 Not Available [facility] (Lab) [address] [place], [address], 02/18/2023 13:37:40 02/19/20 23 02/18/2023 COMPR EHENS JESSICA METAB OLIC PANEL anion gap 14.2 mmol/ L 14-22 Not Available [facility] (Lab) [address] [place], [address], 02/18/2023 13:37:40 02/19/20 23 02/18/2023 COMPR EHENS JESSICA METAB OLIC PANEL glucose 90 mg/dL 70-99 Not Available [facility] (Lab) [address] [place], [address], 02/18/2023 13:37:40 02/19/20 23 02/18/2023 COMPR EHENS JESSICA METAB OLIC PANEL BUN 26 mg/dL 8-19 high Not Available [facility] (Lab) [address] [place], [address], 02/18/2023 13:37:40 02/19/2002/18/2023 COMPR EHENS JESSICA METAB OLIC PANEL creatinine 0.76 mg/dL 0.66-1 .25 Not Available [facility] (Lab) [address] [place], [address], 02/18/2023 13:37:40 02/19/20 23 02/18/2023 COMPR EHENS JESSICA METAB OLIC PANEL GFR >60 Refer ence Range : [place] ge GFR Healt hy Adult : >60 mL/mi n/1.7 3 m2 Chron ic Kidne y Disea se: 15-60 mL/mi n/1.7 3 m2 Kidne y Failu re: <15/m L/min /1.73 m2 www.n iddk. nih.g ov The MDRD study equat ion has not been valid ated in child clarissa <18 years of age; pregn ant women ; the elder ly >85 years of age; or in some racia l or ethni c subgr oups, such as Hiswi nics. Outsi de the valid ated nanda eters , estim ated GFR is less accur ate, requi ring clini joe judgm ent on a case- by-ca se basis . Clini joe inter preta tion for other races and ages must be made by the clini merritt. The MDRD study equat ion has not been valid ated for the evalu ation of serum creat inine relat ed to nutri ambrosio l statu s or medic ation usage . For perso ns <18 years of age, a pedia tric GFR calcu lator is avail able on the [facility] websi te: https :[email or web address] rosario.teetee suh/pr sandra khanal s/kdo qi/gf r_cal culat or Not Available [facility] (Lab) [address] [place], [address], 02/18/2023 13:37:40 02/19/2002/18/2023 COMPR EHENS JESSICA METAB OLIC PANEL alkaline phosphatase 53 U/L 38-126 Not Available [facility] (Lab) [address] [place], [address], 02/18/2023 13:37:40 02/19/20 23 02/18/2023 COMPR EHENS JESSICA METAB OLIC PANEL alanine aminotransfe rase 22 U/L 0-35 Not Available [facility] (Lab) [address] [place], [address], 02/18/2023 13:37:40 02/19/20 23 02/18/2023 COMPR EHENS JESSICA METAB OLIC PANEL aspartate aminotransfe rase 25 U/L 15-37 Not Available [facility] (Lab) [address] [place], [address], 02/18/2023 13:37:40 02/19/20 23 02/18/2023 COMPR EHENS JESSICA METAB OLIC PANEL bilirubin, total 0.90 mg/dL 0.20-1 .30 Not Available [facility] (Lab) [address] [place], [address], 02/18/2023 13:37:40 02/19/20 23 02/18/2023 COMPR EHENS JESSICA METAB OLIC PANEL calcium 9.6 mg/dL 8.4-10 .2 Not Available [facility] (Lab) [address] [place], [address], 02/18/2023 13:37:40 02/19/20 23 02/18/2023 COMPR EHENS JESSICA METAB OLIC PANEL total protein 6.8 g/dL 6.3-8. 2 Not Available [facility] (Lab) [address] [place], [address], 02/18/2023 13:37:40 02/19/20 23 02/18/2023 COMPR EHENS JESSICA METAB OLIC PANEL albumin 4.3 g/dL 3.0-4. 4 Not Available [facility] (Lab) [address] [place], [address], 02/18/2023 13:37:40 02/19/20 23 02/18/2023 COMPR EHENS JESSICA METAB OLIC PANEL globulin 2.5 g/dL 2.6-4. 2 low Not Available [facility] (Lab) [address] [place], [address], 02/18/2023 13:37:40 02/19/20 23 02/18/2023 COMPR EHENS JESSICA METAB OLIC PANEL A/G ratio 1.7 ratio 1.0-2. 0 Not Available [facility] (Lab) [address] [place], [address], 02/18/2023 13:37:40 02/19/20 23 02/18/2023 LIPID PANEL cholesterol 175 mg/dL 140-19 9 NIH FRANK NSUS RECOM MENDA TION FOR FRANCO STERO L: ADULT CHILD LOW RISK: <200 <170 BORDE RLINE : <200- 239 ----- HIGH RISK: >240 >200 Not Available [facility] (Lab) [address] [place], [address], 02/18/2023 13:37:42 02/19/20 23 02/18/2023 LIPID PANEL triglyceride s 152 mg/dL 0-150 high NIH FRANK NSUS REPOR T RECOM MENDA TION FOR TRIGL YCERI JOVANI: ADULT CHILD LOW RISK: <150 ----- BODER LINE: 150-1 99 ----- HIGH RISK: >200 ----- Not Available [facility] (Lab) [address] [place], [address], 02/18/2023 13:37:42 02/19/20 23 02/18/2023 LIPID PANEL HDL cholesterol 63 mg/dL 40- Not Available [facility] (Lab) [address] [place], [address], 02/18/2023 13:37:42 02/19/20 23 02/18/2023 LIPID PANEL LDL cholesterol, calculated 82 mg/dL 0-130 NIH FRANK NSUS REPOR T RECOM MENDA TIONS FOR LDL: ADULT CHILD LOW RISK <130 <110 (OPTI MAL LDL) <100 ----- BORDE RLINE : 130-1 59 ----- HIGH RISK: >160 >130 A TRIGL YCERI DE RESUL T >400 INVAL IDATE S THE CALCU LATIO N FOR LDL FRACT IONAT ION - THE LDL RESUL T WILL NOT BE REPOR SHERI. Not Available [facility] (Lab) [address] [facility] [place], [address], 02/18/2023 13:37:42 03/26/19 23 03/26/2022 XR, knee [facility] [address], [place] [address] Patien t Name: ABHAY NGUYEN A Access ion #: [id number] Sex: F : 1940 3 Locati on: RAD Attend ing Physic fanta: KARLIE CLEMENS Orderi Physic fanta: KARLIE CLEMENS Exam Date: 03/26/19 23 9:28 AM Exam Name: XR KNEE BILAT 3V Admitt ing Diagno sis(es ): RADIOL OGY REPORT - FINAL EXAM: XR KNEE BILAT 3V HISTOR Y: PAIN COMPAR ISABEL: 2014 TECHNI QUE: 3 views of the bilate ral knees were perfor med. FINDIN GS: Right: No eviden ce of a fractu re or malali gnment . Modera te to severe tricom partme ntal osteoa rthrit ic residu als noted. There is a small joint effusi on. No perios teal reacti on. Modera te mediol ateral joint compar tment all narrow ing. Left: Modera te medial compar tment narrow ing with osteoa rthrit ic residu als Page 1 of 2 [facility] Patien t Name: NGUYEN , CHARLO TTE A Access ion #: [id number] Sex: F : 1940 3 Exam Date: 03/26/19 9:28 AM Exam Name: XR KNEE BILAT 3V Admitt ing Diagno sis(es ): medial ly and latera lly, no eviden ce of a joint effusi on.. IMPRES ERLINDA: See above. Create d and electr onical ly signed by: Chauncey emerson MD Signed Date: 03/26/19 1:46 PM (CT) Dictat ed by: Chauncey emerson MD (CT) (CT) Page 2 of 2 [id number] [facility] (Imaging) [address] [place], [address], 05/16/2022 06:18:12 02/20/2002/18/2023 XR, knee [facility] [address] [place] [address] Patien t Name: ABHAY NGUYEN TTE Access ion #: [id number] Sex: F : 1940 8 Dictat ed By: Ryan Mccray Attend ing Physic fanta: KARLIE CLEMENS [facility] Physic fanta: KARLIE CLEMENS Exam Date: Exam Name: XR KNEE BILAT 3V Admitt ing Diagno sis(es ): bilate ral knees radiog raph CLINIC AL INDICA TION: PAIN TECHNI QUE: 3 radiog raphic views of the bilate rla knees were obtain ed. Compar isabel: FINDIN GS: There is no eviden ce of acute fractu re or disloc ation. Modera te bilate ral tricom partme ntal joint space narrow ing. The alignm ent is anatom ical. Soft tissue s are unrema rkable . IMPRES ERLINDA: No acute fractu re or disloc ation. Modera te bilate ral osteoa rthrit is. Electr onical ly Signed by: Ryan Mccray at 2022 07:34: 09 AM Page 1 [email or web address] [facility] ([facility] [address] [place], [address], 03/26/2023 15:08:47 03/27/1903/20/2024 XR, knee, 3 view No observ ation record ed. [email or web address] Not Available 03/18 10:19:43 03/27/19 25 03/20/2024 XR, hip + pelvi s, unila teral , 2 or 3 view No observ ation record ed. [email or web address] Not Available 03/18 10:19:43 Result Notes None recorded. Problems Name Problem SNOMED Code Status Onset Date Resolution Date Notes Provider Name and Address Organization Details Recorded Time Hammer toe 103569329 Active 2021 Not Available [facility] 3 01:28:55 Postoperat jessica care Active 2021 Not Available [facility] 3 01:28:55 Hyperchole sterolemia 86701828 Active 2021 Not Available [facility] 3 01:28:55 Heartburn 87168625 Active 2021 Not Available [facility] 3 01:28:55 Callosity on toe 968153283 Active 2021 Not Available [facility] 3 01:28:55 Gastroesop hageal reflux disease 654286706 Active 2017 Not Available [facility] 3 01:28:55 Pain in toe 320345610 Active 2021 Not Available [facility] 3 01:28:55 Pain of toe of left foot 4638357626110 08 Active 2021 Not Available [facility] 3 01:28:55 Pain in right foot 9878363330867 07 Active 2021 Not Available [facility] 3 01:28:55 Pain of toe of right foot 6365013787563 01 Active 2021 Not Available [facility] 3 01:28:55 Multiple joint pain 67474151 Active 2022 Not Available [facility] 3 01:28:55 Dyslipidem ia 146417169 Active 2020 Not Available [facility] 3 01:28:55 Osteoarthr itis 247021778 Active 2019 Not Available [facility] 3 01:28:55 Pain of left knee joint 6506757433888 07 Active 2021 Not Available [facility] 3 01:28:55 Pain of bilateral knee joints 7394392038402 04 Active 2022 Not Available [facility] 3 01:28:55 Essential hypertensi on 49546324 Active 2017 Not Available [facility] 3 01:28:55 Diarrhea 22263674 Active 2022 Not Available [facility] 3 01:28:55 Problem Notes None recorded. Procedures Surgical History Date Name Laterality Status Provider Name and Address Organization Details Recorded Time 9 repair of umbilical hernia completed Not Available [facility] 05/16/2022 05:58:17 Rotator cuff surgery completed Not Available [facility] 05/16/2022 05:58:17 Removal of ovary(s) completed Not Available [facility] 05/16/2022 05:58:17 amputation of toe completed Not Available [facility] 05/16/2022 05:58:17 Imaging Results Imaging Date Name Status LastModified by Organiz atcritical access hospital Details LastModified Time 03/26/2022 XR, knee completed [id number] [facility] (Imaging) [address] [place], [address], 05/16/2022 06:18:12 02/18/2023 XR, knee completed [email or web address] [facility] (Imaging) [address] [place], [address], 03/26/2023 15:08:47 03/20/2024 XR, knee, 3 view completed Information not available 03/27/2024 10:19:43 03/20/2024 XR, hip + pelvis, unilateral , 2 or 3 view completed Information not available 03/27/2024 10:19:43 Procedure Notes None recorded. Medical Equipment None Reported. Allergies Allergen ID Allergen Name Allergen Category Reaction Reaction Severity Criticality Documentation Date Start Date Code Code System Note Provider Name and Address Organization Details Recorded Time 08944 hydrocodo ne Not available other Not available Not available 05/16/2022 5489 RxNorm cryin g Not Available [facility] 3 06:17:40 68650 propoxyph tamara hydrochlo ride medicatio n other Not available Not available 05/16/2022 05675 RxNorm cryin g Not Available [facility] 3 06:17:41 Medications Name Sig Start Date Stop Date Status Note LastModified by Organization Details LastModified Time losartan 50 mg tablet Take 1 tablet every day by oral route. 2023 active Not Available Not Available Not Avai lable atorvasta tin 10 mg tablet TAKE ONE TABLET BY MOUTH EVERY DAY 2023 active Not Available Not Available Not Avai lable metronida zole 500 mg tablet TAKE 1 TABLET BY MOUTH EVERY 12 HOURS FOR 7 DAYS 04/24 completed Not Available Not Available Not Available acetamino phen 300 mg-codein e 30 mg tablet 03/20 completed Not Available Not Available Not Available ciproflox acin 500 mg tablet TAKE 1 TABLET BY MOUTH EVERY 12 HOURS FOR 10 DAYS 04/24 completed Not Available Not Available Not Available tramadol 50 mg tablet Take 1 tablet every 6 hours by oral route as needed. 02/28 completed Not Available Not Available Not Available famotidin e 20 mg tablet TK 1 T PO Q 12 H 02/28 completed Not Available Not Available Not Available cephalexi n 500 mg capsule take one tablet by mouth three times a day 03/27 completed Not Available Not Available Not Available lisinopri l 10 mg tablet TAKE 1 TABLET BY MOUTH EVERY DAY 08/[address] Clemens Not Available Not Available Not Available losartan 25 mg tablet TAKE 1 TABLET BY MOUTH EVERY DAY 08/27 completed changed to 50mg by Dr Clemens Not Available Not Available Not Available omeprazol e 20 mg capsule,d elayed release TAKE 1 CAPSULE BY MOUTH TWICE DAILY active Not Available Not Available No t Available ondansetr on 4 mg disintegr ating tablet DISSOLVE 1 T ON TONGUE Q 8 H 02/28 completed Not Available Not Available Not Available naproxen 500 mg tablet TAKE 1 TABLET BY MOUTH TWICE A DAY NEEDED active Not Available Not Available No t Available cholestyr amine (with sugar) 4 gram powder for susp in a packet PLEASE SEE ATTACHED FOR DETAILED DIRECTIO NS 08/27 completed Not Available Not Available Not Available omeprazol e 20 mg tablet,de layed release Take 1 tablet twice a day by oral route. 03/27 completed capsule Not Available Not Available Not Available Vitals Date Recorded Body mass index (BMI) Body height Heart rate Body temperature Body weight Systolic blood pressure Diastolic blood pressure Provider Name and Address Organization Details Last Updated DateTime 3 26.3 kg/m2 157.48 cm 68 /min 96.3 [degF] 83102.3 g 126 mm[Hg] 60 mm[Hg] Not Available [facility] 3 06:03:51 Date Recorded Body mass index (BMI) Body height Heart rate Body temperature Body weight Systolic blood pressure Diastolic blood pressure Provider Name and Address Organization Details Last Updated DateTime 3 26.2 kg/m2 157.48 cm 78 /min 97.6 [degF] 06142.7 1 g 122 mm[Hg] 60 mm[Hg] Not Available [facility] 3 06:03:52 Date Recorded Body height Heart rate Systolic blood pressure Diastolic blood pressure Provider Name and Address Organization Details Last Updated DateTime 12/11/2021 157.48 cm 78 /min 132 mm[Hg] 57 mm[Hg] Not Available [facility] 05/16/2022 06:03:51 Date Recorded Body height Body mass index (BMI) Body weight Body temperature Heart rate Oxygen saturation Oxygen saturation in Arterial blood by Pulse oximetry Systolic blood pressure Diastolic blood pressure Provider Name and Address Organization Details Last Updated DateTime 3 157.48 cm 24.9 kg/m2 65024.5 6 g 97.8 [degF] 84 /min 96 % 96 % 124 mm[Hg] 68 mm[Hg] Sirisha Cuevas RN [place] - [place] [employer] 3 11:22:17 Date Recorded Heart rate Systolic blood pressure Diastolic blood pressure Provider Name and Address Organization Details Last Updated DateTime 09/17/2022 86 /min 122 mm[Hg] 70 mm[Hg] [facility] 09/17/2022 10:35:44 Date Recorded Body height Body mass index (BMI) Body weight Body temperature Heart rate Systolic blood pressure Diastolic blood pressure Provider Name and Address Organization Details Last Updated DateTime 3 157.48 cm 25.4 kg/m2 77911.3 4 g 97.7 [degF] 77 /min 122 mm[Hg] 60 mm[Hg] RADHA Cook Nolvia [facility] 3 11:13:44 Social History Question Answer Notes LastModified by Organization Details LastModified Time Tobacco Smoking Status Never Smoker Not Available [facility] 05/16/2022 05:57:03 Do You Have An Advance Directive? Yes MIGRATION.0301 [id number] Information not available 05/16/2022 What Is Your Level Of Alcohol Consumption? None MIGRATION.0301 049387 Information not available 05/16/2022 Are You Blind Or Do You Have Difficulty Seeing? No MIGRATION.0301 216824 Information not available 05/16/2022 What Is Your Level Of Caffeine Consumption? Moderate MIGRATION.0301 [id number] Information not available 05/16/2022 How Much Tobacco Do You Chew? None MIGRATION.0301 005789 Information not available 05/16/2022 In The 14 Days Before Symptom Onset, Have You Had Close Contact With A Laboratory-confi rmed COVID-19 While That Case Was Ill? No MIGRATION.0301 429181 Information not available 05/16/2022 In The 14 Days Before Symptom Onset, Have You Had Close Contact With A Person Who Is Under Investigation For COVID-19 While That Person Was Ill? No MIGRATION.0301 220416 Information not available 05/16/2022 Are You Deaf Or Do You Have Serious Difficulty Hearing? No MIGRATION.0301 911685 Information not available 05/16/2022 What Type Of Diet Are You Following? REGULAR MIGRATION.0301 312880 Information not available 05/16/2022 Which Illicit Or Recreational Drugs Have You Used? None MIGRATION.0301 076814 Information not available 05/16/2022 Do You Or Have You Ever Used E-cigarettes Or Vape? Never Used Electronic Cigarettes MIGRATION.0301 576946 Information not available 05/16/2022 What Is The Highest Grade Or Level Of School You Have Completed Or The Highest Degree You Have Received? IQ63596-1 MIGRATION.0301 410435 Information not available 05/16/2022 What Is Your Occupation? Retired MIGRATION.0301 362783 Information not available 05/16/2022 Have There Been Any Changes To Your Family Or Social Situation? No MIGRATION.0301 754709 Information not available 05/16/2022 What Is The Fluoride Status Of Your Home? Unknown MIGRATION.0301 844855 Information not available 05/16/2022 Are There Any Guns Present In Your Home? No MIGRATION.0301 619790 Information not available 05/16/2022 Do You Use Insect Repellent Routinely? No MIGRATION.0301 630008 Information not available 05/16/2022 Where Do You Live? SingleLevelHouse MIGRATION.0301 351904 Information not available 05/16/2022 Do You Have A Medical Power Of Specialty Cook? Yes MIGRATION.0301 327120 Information not available 05/16/2022 What Was The Date Of Your Most Recent Tobacco Screening? 02/18/2023 [email or web address] Information not available 02/18/2023 Do You Have Any Pets? Yes MIGRATION.0301 654677 Information not available 05/16/2022 What Is Your Relationship Status? MIGRATION.0301 340386 Information not available 05/16/2022 Do You Use Your Seat Belt Or Car Seat Routinely? Yes MIGRATION.0301 550236 Information not available 05/16/2022 Do You Have Smoke And Carbon Monoxide Detectors In Your Home? Yes MIGRATION.0301 447240 Information not available 05/16/2022 Are You Passively Exposed To Smoke? No MIGRATION.0301 839761 Information not available 05/16/2022 Do You Or Have You Ever Used Smokeless Tobacco? Never Used Smokeless Tobacco MIGRATION.0301 667940 Information not available 05/16/2022 Are There Any Smokers In Your House? No MIGRATION.0301 124871 Information not available 05/16/2022 How Much Tobacco Do You Smoke? No MIGRATION.0301 168868 Information not available 05/16/2022 What Types Of Sporting Activities Do You Participate In? None MIGRATION.0301 646554 Information not available 05/16/2022 Do You Feel Stressed (tense, Restless, Nervous, Or Anxious, Or Unable To Sleep At Night)? [id number] MIGRATION.0301 177350 Information not available 05/16/2022 Do You Use Any Illicit Or Recreational Drugs? No MIGRATION.0301 231327 Information not available 05/16/2022 Do You Use Sunscreen Routinely? No MIGRATION.0301 907487 Information not available 05/16/2022 Has Tobacco Cessation Counseling Been Provided? No Not Needed-n ever Smoked MIGRATION.0301 429184 Information not available 05/16/2022 How Many Years Have You Smoked Tobacco? 0 MIGRATION.0301 902271 Information not available 05/16/2022 Have You Recently Traveled Abroad? No MIGRATION.0301 321452 Information not available 05/16/2022 Do You Have Any Dietary Restrictions? No MIGRATION.0301 237707 Information not available 05/16/2022 Do You Or Have You Ever Used Any Other Forms Of Tobacco Or Nicotine? No MIGRATION.0301 235809 Information not available 05/16/2022 Sex: Female Functional Status Question Answer Note LastModified by [employer] ion Details LastModified Time Do you have difficulty walking or climbing stairs? No MIGRATION.19027 58560 Information not available 05/16/2022 Do you have transportation difficulties? No MIGRATION.77919 51131 Information not available 05/16/2022 Are you able to walk? YESWOREST sometimes uses a cane MIGRATION.59417 80670 Information not available 05/16/2022 Do you have difficulty doing errands alone? No MIGRATION.92382 01958 Information not available 05/16/2022 Are you able to care for yourself? Yes MIGRATION.21004 54731 Information not available 05/16/2022 Do you have difficulty dressing or bathing? No MIGRATION.24536 28690 Information not available 05/16/2022 What is your exercise level? Occasional MIGRATION.38263 14448 Information not available 05/16/2022 Mental Status Question Answer Note LastModified by [employer] Details LastModified Time Do you have difficulty concentrating, remembering or making decisions? No MIGRATION.[id number] 6 Information not available 05/16/2022 Family History Relationship Description Onset Age of this Age Resolved Age Notes LastModified by Organization Details LastModified Time Son Pancreatitis MIGRATION.0 30 [id number] Not available 05/16/2022 05:58:23 Son Diabetes mellitus MIGRATION.506 [id number] Not available 05/16/2022 05:58:23 Medical History Condition Response NERVE DISEASE N BLINDNESS N RHEUMATIC FEVER N KIDNEY STONES N BLADDER PROBLEMS N MRSA N OTHER # 1 N POLIO N LUNG DISEASE/DISORDER N HISTORY OF DRUG ABUSE N COPD N RADIATION / CHEMOTHERAPY N Other # 2 N BLOOD DISEASES N EAR OR HEARING PROBLEMS N MUMPS N SHINGLES N BOWEL PROBLEMS N DEPRESSION (INCLUDING POST ) N STROKE/TIA N ULCERS N BENIGN PROSTATIC HYPERPLASIA N MEASLES N HYPOTENSION N MYOCARDIAL INFARCTION N OBESITY N GERD/NAUSEA Y ANEURYSM N URINARY/BLADDER/KIDNEY PROBLEMS N CORONARY ARTERY DISEASE (CAD) N ADDICTION CONCERNS N ENDOMETRIOSIS N Impotence N USE OF BLOOD THINNERS N SKIN PROBLEMS N GASTROINTESTINAL DISORDER N PERIPHERAL VASCULAR DISEASE N MUSCLE,JOINT OR BONE PROBLEMS N GASTROINTESTINAL BLEEDING N BLOOD CLOTS N ASTHMA N CATARACTS N ERECTILE DYSFUNCTION N VARICOSITIES N GI PROBLEMS N Low Testosterone N INFERTILITY N AIDS/HIV N CHEMOTHERAPY / RADIATION N LIVER DISEASE N MALE HYPOGONADISM N HYPERTENSION Y Deficiency N TOURETTE'S N ANXIETY DISORDER N BLOOD TRANSFUSION N ANEMIA/BLOOD DISORDER N CHRONIC EAR INFECTIONS N BRONCHITIS N TUBERCULOSIS N GLAUCOMA N FOOT PROBLEM N DIVERTICULITIS N SLEEP APNEA N CHICKENPOX N INFECTIOUS DISEASE N PROSTATE N HEART ARRHYTHMIA N INSOMNIA N HIGH CHOLESTEROL / HYPERLIPIDEMIA Y EYE PROBLEMS N HYPERTHYROIDISM N EDEMA N CHRONIC PAIN SYNDROME N HYPOTHYROIDISM N CONSTIPATION N CAROTID BLOCKAGE N BACK / NECK PROBLEMS N HAVE YOU BEEN HOSPITALIZED OR SEEN IN [facility] IN THE PAST YEAR ? N ATHEROSCLEROSIS N BREAST PROBLEMS N DIALYSIS N ECZEMA N OSTEOPOROSIS N ARTHRITIS Y APPENDICITIS N DIABETES, TYPE N BAD TEETH N ENT N HEARTBURN / REFLUX Y AUTISM SPECTRUM DISORDER (ASD) N HEPATITIS / LIVER DISEASE N GOUT N SLEEP DISORDER N ALZHEIMER'S DISEASE N Brain Problems N HERPES N DEMENTIA N HEADACHES/MIGRAINES N SEIZURES/EPILEPSY N VASCULAR DISEASE N PACEMAKER N Blood Disorder N DIZZINESS Y HEART DISEASE/HEART PROBLEMS N KIDNEY DISEASE N MULTIPLE SCLEROSIS N CARDIAC ARRHYTHMIA N CANCER: SPECIFY N ATRIAL FIBRILLATION N Gall Stones N PULMONARY EMBOLISM N AUTOIMMUNE DISEASE N Gynecological History Statement/Question Response Current Control Method Menopause Date of LMP Obstetrics History GPAL:G 5 P 5 0 0 0 Type Value Full Term 5 Total 5 Immunizations Vaccine Type Date Status Note Provider Nam e and Address Organization Details Recorded Time SARS-COV-2 (COVID-19) vaccine, UNSPECIFIED 3 completed Not Available [facility] 03/01/2023 01:28:55 COVID-19, mRNA, LNP-S, PF, 100 mcg/0.5mL dose or 50 mcg/0.25mL dose 2 completed Not Available [facility] 03/01/2023 01:28:55 COVID-19, mRNA, LNP-S, PF, 30 mcg/0.3 mL dose 1 completed Not Available [facility] 03/01/2023 01:28:55 COVID-19, mRNA, LNP-S, PF, 30 mcg/0.3 mL dose 1 completed Not Available [facility] 03/01/2023 01:28:55 Past Encounters Encounter ID Performer Location Encounter Start Date Encounter Closed Date Diagnosis/Indication Diagnosis SNOMED-CT Code Diagnosis ICD10 Code Diagnosis Note [id number] [facility] [address] [address] 10/03/2020 00:00:00 10/03/2020 21:31:25 [id number] [facility] [address] [address] 03/27/2021 00:00:00 03/27/2021 21:26:13 [id number] [facility] [address] [address] 05/01/2021 00:00:00 05/14/2021 11:35:08 [id number] [facility] [place] [address] [facility], [address] [address] 07/03/2021 00:00:00 07/13/2021 13:30:42 [id number] [facility] [place] [address] [facility], [address] [address] 07/17/2021 00:00:00 07/18/2021 10:07:38 [id number] [facility] [place] [address] [place] [address] Ave[address] [address] 07/18/2021 00:00:00 07/18/2021 22:41:09 [id number] [facility] [place] [address], [place] [address] [place] [address] 08/07/2021 00:00:00 08/07/2021 14:32:49 [id number] [facility] [place] [address], [address] [address] [place] [address] 08/17/2021 00:00:00 08/17/2021 10:16:36 [id number] [facility] [place] [address], [facility] 4 [place] [address] 09/11/2021 00:00:00 09/11/2021 12:16:00 [id number] [facility] [address] [place], [place] [address]e., [address] [address] 11/21/2021 00:00:00 12/09/2021 18:33:57 [id number] [facility] [place] [address] [facility], [facility] 4 [place] [address] 12/11/2021 00:00:00 12/11/2021 11:13:10 [id number] [facility] [address] [place] [address] [address] [address] 03/20/2022 00:00:00 03/20/2022 21:55:40 [id number] [facility] [address] [place] [address] [address] [address] 04/24/2022 00:00:00 04/24/2022 22:45:30 [id number] Jazmyn Clemens MD [facility] [address] [place] [address] Ave[address] [address] 08/27/2022 10:53:46 08/27/2022 12:16:13 Essential hypertension 23085990 I10 Dyslipidemia 778118238 E 78.5 Osteoarthritis 705317400 M19.90 [id number] Jazmyn Clemens MD [facility] [place] [address] [place] [address] [place] [address] 02/18/2023 10:54:54 02/18/2023 12:14:34 Pain of bilateral knee joints 1907978606 08513 M25.561 M25.562 Essential hypertension 18734957 I10 Dyslipidemia 830813404 E 78.5 Osteoarthritis 891682671 M19.90 Health Concerns Section Related Observation LastModified by Organization Detai ls LastModified Time None Recorded Concern Status LastModified by Organization Details LastModified Time None Recorded Advance Directives Directive Y: Payers Encounter Date Sequence Insurance Name Policy Number Policy Andres Covered Member ID Andres Member ID Guarantor Name 08/27/2022 1 [facility] (MEDICARE REPLACEMENT/A DVANTAGE - HMO) [id number] Charla A Nguyen [id number] Charla A Nguyen 02/18/2023 1 [facility] (MEDICARE REPLACEMENT/A DVANTAGE - HMO) [id number] Charla A Nguyen [id number] Charla A Nguyen Notes Date Note Type Note Provider Name and Address Organization Details Recorded Time 3 text/html Hypertension no headache no dizzinessOsteoarthritis stableDyslipidemia tries to follow a low-fat dietGERD no nausea no vomit Jazmyn Clemens MD [address] [facility], [place] [address], [place], [address], [employer] 09/01/2022 21:01:38 3 text/html Hypertension no headache no dizzinessOsteoarthritis pain both kneesDyslipidemia tries to follow a low-fat dietGERD no nausea no vomit Jazmyn Clemens MD [address] [facility], [facility] [address], [place], [address], [employer] 02/23/2023 12:04:32 OBGyn Episode No OBEpisode recorded.
--- OUTSIDE RECORDS SUMMARY | 2024-04-09 09:03 | XMS_ITS | Clinical Summary ---
Author Organization [facility] Address [address] [place] [address] Phone Care Team Providers Care Fire Crew Worker Name Role Phone Darrell Clemens MD Primary Care Provider [phone] Allergies Active Allergy Reactions Criticality Noted Date Comments Codeine Other (see Comments) 03/02/2024 CRYING Medications atorvastatin (LIPITOR) 10 MG Tablet Take 10 mg by mouth daily. Active losartan (COZAAR) 50 MG Tablet Take 50 mg by mouth daily. Active naproxen (NAPROSYN) 500 MG Tablet Take 500 mg by mouth 2 times daily (with meals). Active Encounters Date Type Department Care Team Description 03/16/2024 8:13 AM TELEVISION RECEIVER ANALYZER [facility] [address] [place] [address] Dragan Yanez, DIRECTOR OF PRODUCT MANAGEMENT, PRESS TENDER [employer]ARY [employer]NADE 03/16/2024 8:00 AM TELEVISION RECEIVER ANALYZER - 03/16/2024 8:20 AM TELEVISION RECEIVER ANALYZER [facility] [address] [place] [address] Antonette Edmonds MD PhD CATARACT EXTRACTION WITH INTRAOCULAR LENS PLACEMENT, LEFT EYE 03/16/2024 7:13 AM TELEVISION RECEIVER ANALYZER - 03/16/2024 8:42 AM TELEVISION RECEIVER ANALYZER [facility] Pre[facility]Pac[facility] [address] [place] [address] Antonette Edmonds MD PhD Discharge Disposition: Discharged to home or Selfcare 03/16/2024 Travel 03/02/2024 Travel from Last 3 Months Family History Relation Name Status Comments Father Mother Social History Tobacco Use Types Packs/Day Years Used Date Smoking Tobacco: Never Smokeless Tobacco: Never Tobacco Cessation:Counseling Given: Not Answered Alcohol Use Standard Drinks/Week Comments Not Currently 0 (1 standard drink = 0.6 oz pur e alcohol) Comments Unknown Sex and Gender Information Value Date Recorded Sex Assigned at Not on file Legal Sex Female 12:42 PM TELEVISION RECEIVER ANALYZER Gender Identity Not on file Sexual Orientation Not on file Last Filed Vital Signs Vital Sign Reading Time Taken Comments Blood Pressure 144/62 03/16/2024 8:34 AM TELEVISION RECEIVER ANALYZER Pulse 70 03/16/2024 8:34 AM TELEVISION RECEIVER ANALYZER Temperature 36.4 ??C (97.5 ??F) 03/16/2024 8:34 AM CS T Respiratory Rate 16 03/16/2024 8:34 AM TELEVISION RECEIVER ANALYZER Oxygen Saturation 95% 03/16/2024 8:34 AM TELEVISION RECEIVER ANALYZER Inhaled Oxygen Concentration - - Weight 61.2 kg (135 lb) 03/16/2024 7:35 AM TELEVISION RECEIVER ANALYZER Height 160 cm (5' 3 ) 03/16/2024 7:35 AM TELEVISION RECEIVER ANALYZER Body Mass Index 23.91 03/16/2024 7:35 AM TELEVISION RECEIVER ANALYZER Plan of Treatment Not on file Medical Devices Implanted Type Area Beam House Inspector Device Identifier Shelf Expiration Date Model / Serial / Lot Left Lens Implanted:Qty: 1 on 03/16/2024 by Antonette Edmonds MD PhD at [facility] Left: Eye [employer] 12/24/2025 DCB0 0 / [id number] / [id number] Procedures Procedure Name Priority Date/Time Associated Diagnosis Comments CATARACT EXTRACTION WITH IOL IMPLANT 03/16/2024 8:11 AM TELEVISION RECEIVER ANALYZER VISUALLY SIGNIFICANT CATARACT, LEFT EYE Special Needs 5'3 135LB HTN, PATIENT STATES SHE HAS PROBLEMS LYING FLAT DUE TO VERTIGO from Last 3 Months Insurance MEDICARE C [facility] Care Teams Fire Crew Worker Relationship Specialty Start Date End Date Darrell Clemens MD [address] [place] [address] PCP - General Internal Medicine 03/16/24
--- OUTSIDE RECORDS SUMMARY | 2024-04-09 09:03 | XMS_ITS | Clinical Summary ---
Author Organization [facility] Address [address] [place] [address]. [place], [place] [address] [place] [address] Care Team Providers Care Diamond Powder Technician Name Role Phone Darrell Clemens MD Primary Care Provider [phone] Allergies No known active allergies Medications lisinopril 10 MG tablet Take 10 mg by mouth daily. Active omeprazole 20 MG capsule Take 20 mg by mouth 2 (two) times a day. Active naproxen 500 MG tablet Take 500 mg by mouth 2 (two) times daily with meals. Active Garlic 1250 MG Tab Take 1 tablet by mouth daily. Active acetaminophen 500 MG tablet Take 500 mg by mouth every 6 (six) hours as needed for Pain. Active Nutritional Supplements (ESTROVEN OR) Take 1 capsule by mouth daily. Active calcium carb-cholecalcif giana 600-800 MG-UNIT tablet Take 1 tablet by mouth daily. Active multi vitamin/minerals tablet Take 1 tablet by mouth daily. Active hydrocodone-acet aminophen (NORCO) 5-325 MG tablet Take 1-2 tablets by mouth every 4 (four) hours as needed for Pain. 30 tablet 08/06/2018 Active Family History Medical History Relation Comments Diabetes Son 1 Cancer Son 2 Relation Status Comments Son 1 Son 2 Social History Tobacco Use Types Packs/Day Years Used Date Smoking Tobacco: Never Smokeless Tobacco: Never Alcohol Use Standard Drinks/Week Comments No 0 (1 standard drink = 0.6 oz pur e alcohol) AUDIT-C Answer Date Recorded Frequency of Alcohol Consumption Never 07/22/2018 Average Number of Drinks Not on file 019 Frequency of Binge Drinking Not on file 09/2018 Comments No Sex and Gender Information Value Date Recorded Sex Assigned at Not on file Legal Sex Female 10:36 AM CDT Gender Identity Not on file Sexual Orientation Not on file Last Filed Vital Signs Vital Sign Reading Time Taken Comments Blood Pressure 165/71 08/06/2018 12:47 PM CDT Pulse 88 08/06/2018 12:47 PM CDT Temperature 36.6 ??C (97.8 ??F) 08/06/2018 12:47 PM C DT Respiratory Rate 18 08/06/2018 12:47 PM CDT Oxygen Saturation 97% 08/06/2018 12:47 PM CDT Inhaled Oxygen Concentration - - Weight 68.6 kg (151 lb 3.8 oz) 08/06/2018 8:30 A M CDT Height 162.6 cm (5' 4 ) 08/06/2018 8:30 AM CDT Body Mass Index 25.96 08/06/2018 8:30 AM CDT Plan of Treatment Health Maintenance Due Date Last Done Comments DTaP, Tdap and Td Vaccines ( 1 - Tdap) 1961 Zoster Vaccines (1 of 2) 1992 Annual Medicare Wellness Visit 2007 Dexa Scan (General) 2007 Pneumococcal Vaccine: 65+ Ye ars (1 of 1 - PCV) 2007 RSV Immunization or 60+ Years (1 - 1-dose 75+ series) 2017 COVID-19 Vaccine ( - 2023-2 5 season) 2023 Influenza Adult (#1) 2023 Meningococcal Vaccine Aged Out No vladimir krystina eligible based on patient's age to complete this topic RSV Immunizations Under 20 Months Aged Out No longer eligible based on patient's age to complete this topic Insurance MEDICARE Care Teams Diamond Powder Technician Relationship Specialty Start Date End Date Darrell Clemens MD [address] [place] [address] PCP - General INTERNAL MEDICINE 07/18/18
--- OUTSIDE RECORDS SUMMARY | 2024-04-09 09:03 | XMS_ITS | CONTINUITY OF CARE DOCUMENT ---
Author Name j luis dietz Address Unknown Organization [facility] Address [address] [place] [address] Phone [phone] Care Team Providers Care Armor Reconnaissance Vehicle Driver Name Role Phone Timothy Golden MD Unavailable JAZMYN GRIDER MD Unavailable JAZMYN GRIDER MD Unavailable PROBLEMS Condition Status Date Provider Notes UTI (urinary tract infection) active KAYLYN KENNEY MD HTN essential active KAYLYN KENNEY MD Edema active Timothy Golden MD Other and unspecified ovarian cyst active A MALLORY KENNEY MD Tricuspid valve disorders, s pecified as nonrheumatic active KAYLYN KENNEY MD Mitral valve disorders active KAYLYN KENNEY MD Cardiomegaly active KAYLYN KENNEY MD ENCOUNTERS Date Type Provider Location Encounter Diag nosis - In-person encounter Office Visit Timothy Golden MD [facility] Edema - In-person encounter Office Visit KAYLYN KENNEY MD [facility] - In-person encounter Office Visit KAYLYN KENNEY MD [facility] - In-person encounter Office Visit KAYLYN KENNEY MD [facility] - In-person encounter Office Visit KAYLYN KENNEY MD [facility] - In-person encounter Office Visit KAYLYN KENNEY MD [facility] - In-person encounter Office Visit KAYLYN KENNEY MD [facility] - In-person encounter Office Visit KAYLYN KENNEY MD [facility] - In-person encounter Office Visit KAYLYN KENNEY MD [facility] - In-person encounter Office Visit KAYLYN KENNEY MD [facility] - In-person encounter Office Visit KAYLYN KENNEY MD [facility] - In-person encounter Office Visit KAYLYN KENNEY MD [facility] - In-person encounter Office Visit KAYLYN KENNEY MD [facility] - In-person encounter Office Visit KAYLYN KENNEY MD [facility] - In-person encounter Office Visit KAYLYN KENNEY MD [facility] - In-person encounter Office Visit KAYLYN KENNEY MD [facility] - In-person encounter Office Visit KAYLYN KENNEY MD [facility] - In-person encounter Office Visit KAYLYN KENNEY MD [facility] - In-person encounter Office Visit Jair Padilla [facility] - In-person encounter Office Visit KAYLYN KENNEY MD [facility] - In-person encounter Office Visit KAYLYN KENNEY MD [facility] - In-person encounter Office Visit KAYLYN KENNEY MD [facility] - In-person encounter Office Visit KAYLYN KENNEY MD [facility] CardiomegalyMitral valve disordersTricuspid valve disorders, specified as nonrheumaticOther and unspecified ovarian cyst - In-person encounter Office Visit KAYLYN KENNEY MD [facility] HTN essential - In-person encounter Office Visit Jair Padilla [facility] - In-person encounter Office Visit Jair Padilla [facility] - In-person encounter Office Visit Jair Padilla [facility] - In-person encounter Office Visit Jair Padilla [facility] - In-person encounter Office Visit Jair Padilla [facility] - In-person encounter Office Visit Jair Padilla [facility] - In-person encounter Office Visit Jair Padilla [facility] - In-person encounter Office Visit Jair Padilla [facility] - In-person encounter Office Visit Jair Padilla [facility] - In-person encounter Office Visit Jair Padilla [facility] - In-person encounter Office Visit Jair Padilla [facility] - In-person encounter Office Visit Jair Padilla [facility] - In-person encounter Office Visit Jair Padilla [facility] - In-person encounter Office Visit Kamaljitmalvin Padilla [facility] - In-person encounter Office Visit Jair Padilla [facility] - In-person encounter Office Visit Kamaljitmalvin Padilla [facility] VITAL SIGNS Date Observation Value Provider Body Mass Index (Ratio) 27.63 kg/m2 Seth Golden MD blood pressure, diastolic 80 mm[Hg] Da joycelyn Graciela blood pressure, systolic 122 mm[Hg] Dac ia Graciela oxygen saturation, oximetry 96 % Briana Graciela respiratory rate E&M 16 /min Briana V oss pulse rate 85 /min Briana Graciela weight E&M 161 [lb_av] Briana Graciela height E&M 64 [in_i] Briana Graciela ALLERGIES Allergy Name Onset Date Reaction Criticality Status HYDROCODONE Low Criticality active RESULTS Date Observation Value Provider Reference Range Interpretation Location 5 Nitrite Urine Negative [facility] Negative 5 urobilinogen, urine 0.2 E.U./dL mg/dl [facility] 0.2 - 1.0 5 specific gravity, urine 1.010 [facility] 1.001 - 1.035 5 KETONES, URINE Negative [facility] Negative 5 bilirubin, urine Negative [facility] Negative 5 Glucose Urine Negative [facility] Negative 5 clarity, urine, point Clear [facility] Yellow 5 urine color Yellow [facility] yellow to bryon 7 Nitrite Urine Negative [facility] Negative 7 urobilinogen, urine 0.2 E.U./dL mg/dl [facility] 0.2 - 1.0 7 specific gravity, urine 1.015 [facility] 1.001 - 1.035 7 KETONES, URINE Negative [facility] Negative 7 bilirubin, urine Negative [facility] Negative 7 Glucose Urine Negative [facility] Negative 7 clarity, urine, point Slightly Cloudy [facility] Yellow 7 urine color Yellow [facility] yellow to bryon HISTORY OF MEDICATION USE Medication Status Instructions Dates Provider Indications Com ments OMEPRAZOLE 20 MG ORAL CAPSULE DELAYED RELEASE active take one tablet daily [facility] TRAMADOL HCL 50 MG ORAL TABLET active take one tablet three times daily as needed [facility] TYLENOL EXTRA STRENGTH 500 MG ORAL TABLET active ONE TABLET TWICE DAILY NEEDED KAYLYN KENNEY MD NAPROXEN 250 MG ORAL TABLET active ONE TABLET DAILY KAYLYN KENNEY MD HYDROCODONE-SEVEN TAMINOPHEN 5-325 MG ORAL TABLET completed ONE TABLET TWICE DAILY NEEDED - KAYLYN KENNEY MD DICLOFENAC SODIUM 75 MG ORAL TABLET DELAYED RELEASE completed ONE TABLET TWICE DAILY - KAYLYN KENNEY MD NAPROXEN 500 MG ORAL TABLET completed one tab twice daily - KAYLYN KENNEY MD HYDROCODONE-SEVEN TAMINOPHEN 5-325 MG ORAL TABLET completed ONE TABLET TWICE DAILY NEEDED - KAYLYN KENNEY MD IBUPROFEN 600 MG ORAL TABLET completed TAKE NEEDED - KAYLYN KENNEY MD LISINOPRIL 10 MG ORAL TABLET active ONE TABLET DAILY KAYLYN KENNEY MD OSCAL 500/200 D-3 500-200 MG-UNIT ORAL TABLET active ONE TABLET TWICE DAILY KAYLYN KENNEY MD MECLIZINE HCL 12.5 MG ORAL TABLET completed ONE TABLET DAILY NEEDED - KAYLYN KENNEY MD DICLOFENAC SODIUM 75 MG ORAL TABLET DELAYED RELEASE completed ONE TABLET DAILY - KAYLYN KENNEY MD SOCIAL HISTORY Date Observation Value Provider social history E&M S moking History: Dona tavarez has never smoked. Timothy Golden MD social history reviewed E&M reviewed - no changes required Timothy Golden MD INSURANCE PROVIDERS Payer name Policy type / Coverage type [place] [employer] party ID AARP MEDICARE ADVANTAGE ([facility] COMPLETE PPO) Other [id number] ADVANCE DIRECTIVES Name Date DISCUSSED - NO DECISION MADE TREATMENT PLAN Date Name Performer Cardiology follow up Timothy zhang MD Cardiology follow up :Will repeat echo. Continue Lisinopril. Timothy Golden MD Date Name Venous Doppler Bilat eral LE - Reflux Complete Echo URINALYSIS, COMPLETE W/REFLEX TO CULTURE HISTORY OF PROCEDURES Procedure Date Procedure Name Provider Procedure Notes S tatus EKG Timothy Golden MD completed
--- OUTSIDE RECORDS SUMMARY | 2024-04-09 09:03 | XMS_ITS | Continuity of Care Document ---
Author Organization [facility] Address [address] [place] [address] [place] [address] Phone Care Team Providers Care It Operations Specialist Name Role Phone [facility] Unavailable Unavail able Dmitriy Wilson Unavailable Unavailable Advance Directives Directive Yes / No Effective Date File Name No Information Encounters Encounter Description Practice Location Reason(s) For Visit Diagnoses Date Provider Providers Copied on Encounter [facility], [address], [place], [place], [id number], [place] tel:[phone] [facility] No Information 3 [facility] [employer] [address] [facility] [address] [facility], [address], [place], [place], [address] , [place]. tel: [phone] Consulting Provider: Dmitriy Wilson, [address], [place], [address]. tel:[phone] Family History Family Member Type Diagnosis Age [...]
== END 2024-04-04 16:13 | disposition home or self-care (01) ==
PROVIDERS: Emergency Provider Registered Nurse; PCP Internal Medicine
DX: H57.12 Ocular pain, left eye (principal); H57.89 Other specified disorders of eye and adnexa; M79.605 Pain in left leg; I10 Essential (primary) hypertension; E78.5 Hyperlipidemia, unspecified; M19.90 Unspecified osteoarthritis, unspecified site; Z98.42 Cataract extraction status, left eye; Z90.721 Acquired absence of ovaries, unilateral; Z89.429 Acquired absence of other toe(s), unspecified side
CPT/HCPCS: 93971; 96372; 99284; A9270; J1100; J1885

== ENCOUNTER 2024-07-06 12:46 | Outpatient (CLI) | payer MEDICARE, SELFPAY ==
[2024-07-06 13:54] LABS: Basophils Absolute Auto 0.1 K/mm3 (0.0-0.1); Basophils Percent Auto 0.8 % (0.2-1.2); Eosinophils Absolute Auto 0.1 K/mm3 (0-0.3); Eosinophils Percent Auto 1.3 % (0-4.4); Hematocrit 42.8 % (37.0-47.0); Hemoglobin 14.5 g/dL (12.0-15.0); Immature Granulocyte Absolute 0.01 K/mm3 (0.00-0.031); Immature Granulocyte Percent A 0.2 % (0-0.5); Lymphocytes Absolute Auto 1.49 K/mm3 (0.9-3.2); Lymphocytes Percent Auto 24.6 % (18.3-44.2); Mean Corpuscular HGB Conc 33.9 g/dl (32-36); Mean Corpuscular Hemoglobin 31.5 pg (26-34); Mean Platelet Volume 9.8 fl (7.4-10.4); Monocytes Absolute Auto 0.3 K/mm3 (0.1-0.6); Monocytes Percent Auto 5.1 % (2.6-8.5); Neutrophils Absolute Auto 4.1 K/mm3 (1.3-6.7); Platelet Count Result 215 k/mm3 (150-375); Red Cell Distribution Width 12.7 % (11.5-14.5); White Blood Count 6.1 K/mm3 (4.5-10.0)
[2024-07-06 14:06] LABS: Alanine Aminotransferase 16 U/L (6-35); Albumin Level 4.4 g/dL (3.5-5.1); Alkaline Phosphatase 59 U/L (38-126); Anion Gap 13 mmol/L (4-12); Aspartate Amino Transferase 20 U/L (14-36); Bilirubin,Total 0.7 mg/dL (0.2-1.3); Blood Urea Nitrogen 27 mg/dL (7-17); Calcium 9.5 mg/dL (8.4-10.2); Carbon Dioxide 18 mmol/L (22-30); Chloride 109 mmol/L (98-107); Cholesterol 161 mg/dL (0-200); Estimated Glomerular Filt Rate > 60; Glucose 83 mg/dL (65-110); HDL Direct 60 mg/dL; Potassium 3.8 mmol/L (3.4-5.0); Sodium 140 mmol/L (137-145); Triglycerides 107 mg/dL (<150)
--- OUTSIDE RECORDS SUMMARY | 2024-07-06 14:10 | XMS_ITS | Continuity of Care Document ---
Author Organization [facility] Address [id number] [place] [address] [place] [address] Phone Care Team Providers Care Negotiator Name Role Phone [facility] Unavailable Unavail able Dmitriy Wilson Unavailable Unavailable Advance Directives Directive Yes / No Effective Date File Name No Information Encounters Encounter Description Practice Location Reason(s) For Visit Diagnoses Date Provider Providers Copied on Encounter [facility], [address], [place], [place], [id number], [place] tel:[phone] [facility] No Information 3 [facility] [employer] [address] [facility], [address], [place], [place], [id number] , [place]. tel:[phone] Consulting Provider: Dmitriy Wilson, [address] [facility], [place], [address]. tel:[phone] Family History Family Member Type Diagnosis Age At Onset No Information Payers Payer name Insurance type Covered republican ID Authoriza tion(s) No Information Social History [...]
--- OUTSIDE RECORDS SUMMARY | 2024-07-06 14:10 | XMS_ITS | Data Portability ---
Author Organization [facility] [place] Address [address] [place] [address] Care Team Providers Care Instructional Specialist Name Role Phone JAZMYN CLEMENS Primary Care Provider Assessment Encounter Date Assessment Date Assessment [...] 4 to 6 months blood work ordered [email or web address] Not available 07/17/2023 22:15:08 07/24/2023 07/24/2023 Discussed [email or web address] Not available 07/16 20:48:46 10/22/2023 10/22/2023 continue current therapy follow up with me in 6 months declines mammogram declines colonoscopy and any colon cancer screening also declines GI referral to discuss the screening process follow up 6 months [email or web address] Not available 11/09/2023 16:24:16 02/28/2024 02/28/2024 EKG normal sinus rhythm no acute changes. Cleared for cataract surgery left knee declines physical therapy but we will x-ray of the knee hypertension controlled all cancer screenings declined again as I did bring them up immunizations declined today she will keep her regular follow up [email or web address] Not available 02/29/2024 13:49:07 04/21/2024 04/21/2024 we will obtain some inflammatory markers but also have her see Orthopedics. Blood pressure is controlled continue with her losartan dyslipidemia atorvastatin. We will follow up with me in 3 months osteoarthritis acetaminophen or short term NSAID [email or web address] Not available 05/17/2024 14:05:22 Plan of Treatment Reminders Order Date Submit Date Provider Last Modified By Organization Details Last Modified Time Details Appointments ANY 15 2024 10:00A M Jazmyn Clemens MD Not available Not available Not available Lab unlisted lab - uric A+ESR-branden +JULIEN+rf qn+cr...- [id number] 2024 025 [facility], [address], [place], [address], 04/22/2024 15:12:44 CMP, serum or plasma 2023 024 [facility], [address], [place], [address], 10/23/2023 11:10:28 lipid panel, serum 2023 024 [facility], [address], [place], [address], 10/23/2023 11:10:27 CBC w/ auto diff 2023 024 [facility], [address], [place], [address], 10/23/2023 11:10:28 lipid panel, serum 2023 024 [facility], [address], [place], [address], 06/20/2023 06:19:02 CMP, serum or plasma 2023 024 [facility], [address], [place], [address], 06/20/2023 06:19:01 CBC w/ auto diff 2023 024 CHRI[facility]INE [facility], [address], [place], [address], 06/20/2023 06:19:03 Referral orthopedi c surgeon referral 2024 025 CHRISTINE Yeung MD, [address], [place], [address], 04/28/2024 17:19:18 Procedures None recorded. Surgeries None recorded. Imaging XR, knee, 3 view 2023 024 [facility] (Imaging), [address], [place], [address], 03/25/2024 10:03:24 electroca rdiogram 2023 024 [email or web address] In-Office Order, Internal Use Only DO Not Attach Compendium DO Not Attach Compendium, Do Not Delete/merge, [id number] 02/28/2024 13:34:55 Medication Orders None recorded. Patient TargetsNo targets recorded. Patient Instructions Encounter Date Encounter Id Patient Instructions Last Modified By Organization Details Last Modified Time 07/24/2023 [id number] preventing falls : care instructions [email or web address] Not available 07/29/2023 20:48:39 Medicare [facility] s Preventive Checklist [email or web address] Not available 07/29/2023 20:48:39 Reason for Referral Orthopedic Surgeon Referral for Pain of knee region Referring Physician: Jazmyn Clemens, Internal Medicine, Encounter Date: 04/21/2024 Results Created Date Observation Date Name Description Value Unit Range Abnormal Flag Note LastModifiedBy Organization Detail LastModifiedTime 06/19/1906/20/2023 CMP14 glucose 85 mg/dL 70-99 Not Availabl e [facility] ([facility]) [address] [place], [address], 06/20/2023 06:19:01 06/19/19 24 06/20/2023 CMP14 BUN 28 mg/dL 8-27 above high normal Not Available [facility] ([facility]) [address] [place], [address], 06/20/2023 06:19:01 06/19/19 24 06/20/2023 CMP14 creatinine 0.76 mg/dL 0.57-1 .00 Not Available [facility] ([facility]) [address] [place], [address], 06/20/2023 06:19:01 06/19/19 24 06/20/2023 CMP14 eGFR 79 mL/mi n/1.7 3 >59 Not Available [facility] ([facility]) [address] [place], [address], 06/20/2023 06:19:01 06/19/19 24 06/20/2023 CMP14 BUN/creatini ne ratio 37 12-28 above high normal Not Available [facility] ([facility]) [address] [place], [address], 06/20/2023 06:19:01 06/19/19 24 06/20/2023 CMP14 sodium 141 mmol/ L 134-14 4 Not Available [facility] ([facility]) [address] [place], [address], 06/20/2023 06:19:01 06/19/19 24 06/20/2023 CMP14 potassium 4.3 mmol/ L 3.5-5. 2 Not Available [facility] ([facility]) [address] [place], [address], 06/20/2023 06:19:01 06/19/19 24 06/20/2023 CMP14 chloride 106 mmol/ L 96-106 Not Available [facility] ([facility]) [address] [place], [address], 06/20/2023 06:19:01 06/19/19 24 06/20/2023 CMP14 carbon dioxide, total 23 mmol/ L 20-29 Not Available [facility] ([facility]) [address] [place], [address], 06/20/2023 06:19:01 06/19/19 24 06/20/2023 CMP14 calcium 9.5 mg/dL 8.7-10 .3 Not Available [facility] ([facility]) [address], [place], [address], 06/20/2023 06:19:01 06/19/19 24 06/20/2023 CMP14 protein, total 6.1 g/dL 6.0-8. 5 Not Available [facility] ([facility]) [address] [place], [address], 06/20/2023 06:19:01 06/19/19 24 06/20/2023 CMP14 albumin 4.4 g/dL 3.7-4. 7 Not Available [facility] ([facility]) [address], [place], [address], 06/20/2023 06:19:01 06/19/19 24 06/20/2023 CMP14 globulin, total 1.7 g/dL 1.5-4. 5 Not Available [facility] ([facility]) [address] [place], [address], 06/20/2023 06:19:01 06/19/19 24 06/20/2023 CMP14 A/G ratio 2.6 1.2-2. 2 above high normal Not Available [facility] ([facility]) [address] [place], [address], 06/20/2023 06:19:01 06/19/19 24 06/20/2023 CMP14 bilirubin, total 0.5 mg/dL 0.0-1. 2 Not Available [facility] ([facility]) [address] [facility], [place], [address], 06/20/2023 06:19:01 06/19/19 24 06/20/2023 CMP14 alkaline phosphatase 53 IU/L 44-121 Not Available [facility] ([facility]) [address] [place], [address], 06/20/2023 06:19:01 06/19/19 24 06/20/2023 CMP14 AST (SGOT) 14 IU/L 0-40 Not Avail able [facility] ([facility]) [address] [place], [address], 06/20/2023 06:19:01 06/19/19 24 06/20/2023 CMP14 ALT (SGPT) 15 IU/L 0-32 Not Avail able [facility] ([facility]) [address] [place], [address], 06/20/2023 06:19:01 06/19/19 24 06/20/2023 LIPID PANEL cholesterol, total 144 mg/dL 100-19 9 Not Available [facility] ([facility]) [address] [place], [address], 06/20/2023 06:19:02 06/19/19 24 06/20/2023 LIPID PANEL triglyceride s 81 mg/dL 0-149 Not Available [facility] ([facility]) [address] [place], [address], 06/20/2023 06:19:02 06/19/19 24 06/20/2023 LIPID PANEL HDL cholesterol 62 mg/dL >39 Not Available [facility] ([facility]) [address] [place], [address], 06/20/2023 06:19:02 06/19/19 24 06/20/2023 LIPID PANEL VLDL cholesterol joe 16 mg/dL 5-40 Not Available [facility] ([facility]) [address] [place], [address], 06/20/2023 06:19:02 06/19/19 24 06/20/2023 LIPID PANEL LDL chol calc ([facility]) 66 mg/dL 0-99 Not Available [facility] ([facility]) [address] [facility], [place], [address], 06/20/2023 06:19:02 06/19/19 24 06/19/2023 CBC WITH DIFFE RENTI AL/PL ATELE T WBC 5.3 x10e3 /uL 3.4-10 .8 Not Available [facility] ([facility]) [address] [facility], [place], [address], 06/20/2023 06:19:03 06/19/19 24 06/19/2023 CBC WITH DIFFE RENTI AL/PL ATELE T RBC 4.70 x10e6 /uL 3.77-5 .28 Not Available [facility] ([facility]) [address] [facility], [place], [address], 06/20/2023 06:19:03 06/19/19 24 06/19/2023 CBC WITH DIFFE RENTI AL/PL ATELE T hemoglobin 14.5 g/dL 11.1-1 5.9 Not Available [facility] ([facility]) [address] [facility], [place], [address], 06/20/2023 06:19:03 06/19/19 24 06/19/2023 CBC WITH DIFFE RENTI AL/PL ATELE T hematocrit 44.2 % 34.0-4 6.6 Not Available [facility] ([facility]) [address] [facility], [place], [address], 06/20/2023 06:19:03 06/19/19 24 06/19/2023 CBC WITH DIFFE RENTI AL/PL ATELE T MCV 94 fL 79-97 Not Available [facility] ([facility]) [address] [facility], [place], [address], 06/20/2023 06:19:03 06/19/19 24 06/19/2023 CBC WITH DIFFE RENTI AL/PL ATELE T MCH 30.9 pg 26.6-3 3.0 Not Available [facility] ([facility]) [address] [facility], [place], [address], 06/20/2023 06:19:03 06/19/19 24 06/19/2023 CBC WITH DIFFE RENTI AL/PL ATELE T MCHC 32.8 g/dL 31.5-3 5.7 Not Available [facility] ([facility]) [address] [facility], [place], [address], 06/20/2023 06:19:03 06/19/19 24 06/19/2023 CBC WITH DIFFE RENTI AL/PL ATELE T RDW 11.7 % 11.7-1 5.4 Not Available [facility] ([facility]) [address] [facility], [place], [address], 06/20/2023 06:19:03 06/19/19 24 06/19/2023 CBC WITH DIFFE RENTI AL/PL ATELE T platelets 172 x10e3 /uL 150-45 0 Not Available [facility] ([facility]) [address] [facility], [place], [address], 06/20/2023 06:19:03 06/19/19 24 06/19/2023 CBC WITH DIFFE RENTI AL/PL ATELE T neutrophils 71 % notest ab. Not Available [facility] ([facility]) [address] [place], [address], 06/20/2023 06:19:03 06/19/19 24 06/19/2023 CBC WITH DIFFE RENTI AL/PL ATELE T lymphs 21 % notest ab. Not Available [facility] ([facility]) [address] [place], [address], 06/20/2023 06:19:03 06/19/19 24 06/19/2023 CBC WITH DIFFE RENTI AL/PL ATELE T monocytes 6 % notest ab. Not Available [facility] ([facility]) [address] [place], [address], 06/20/2023 06:19:03 06/19/19 24 06/19/2023 CBC WITH DIFFE RENTI AL/PL ATELE T eos 1 % notest ab. Not Available [facility] ([facility]) [address] [facility], [place], [address], 06/20/2023 06:19:03 06/19/19 24 06/19/2023 CBC WITH DIFFE RENTI AL/PL ATELE T basos 1 % notest ab. Not Available [facility] ([facility]) [address] [facility], [place], [address], 06/20/2023 06:19:03 06/19/19 24 06/19/2023 CBC WITH DIFFE RENTI AL/PL ATELE T neutrophils (absolute) 3.7 x10e3 /uL 1.4-7. 0 Not Available [facility] ([facility]) [address] [facility], [place], [address], 06/20/2023 06:19:03 06/19/19 24 06/19/2023 CBC WITH DIFFE RENTI AL/PL ATELE T lymphs (absolute) 1.1 x10e3 /uL 0.7-3. 1 Not Available [facility] ([facility]) [address] [facility], [place], [address], 06/20/2023 06:19:03 06/19/19 24 06/19/2023 CBC WITH DIFFE RENTI AL/PL ATELE T monocytes(ab solute) 0.3 x10e3 /uL 0.1-0. 9 Not Available [facility] ([facility]) [address] [facility], [place], [address], 06/20/2023 06:19:03 06/19/19 24 06/19/2023 CBC WITH DIFFE RENTI AL/PL ATELE T eos (absolute) 0.1 x10e3 /uL 0.0-0. 4 Not Available [facility] ([facility]) [address] [facility], [place], [address], 06/20/2023 06:19:03 06/19/19 24 06/19/2023 CBC WITH DIFFE RENTI AL/PL ATELE T baso (absolute) 0.1 x10e3 /uL 0.0-0. 2 Not Available [facility] ([facility]) [address] [facility], [place], [address], 06/20/2023 06:19:03 06/19/19 24 06/19/2023 CBC WITH DIFFE RENTI AL/PL ATELE T immature granulocytes 0 % notest ab. Not Available [facility] ([facility]) [address] [facility], [place], [address], 06/20/2023 06:19:03 06/19/19 24 06/19/2023 CBC WITH DIFFE RENTI AL/PL ATELE T immature grans (abs) 0.0 x10e3 /uL 0.0-0. 1 Not Available [facility] ([facility]) [address] [facility], [place], [address], 06/20/2023 06:19:03 10/22/19 24 10/23/2023 LIPID PANEL cholesterol, total 152 mg/dL 100-19 9 Not Available [facility] ([facility]) [address] [facility], [place], [address], 10/23/2023 11:10:27 10/22/19 24 10/23/2023 LIPID PANEL triglyceride s 103 mg/dL 0-149 Not Available [facility] ([facility]) [address] [facility], [place], [address], 10/23/2023 11:10:27 10/22/19 24 10/23/2023 LIPID PANEL HDL cholesterol 59 mg/dL >39 Not Available [facility] ([facility]) [address] [place], [address], 10/23/2023 11:10:27 10/22/19 24 10/23/2023 LIPID PANEL VLDL cholesterol joe 19 mg/dL 5-40 Not Available [facility] ([facility]) [address] [place], [address], 10/23/2023 11:10:27 10/22/19 24 10/23/2023 LIPID PANEL LDL chol calc ([facility]) 74 mg/dL 0-99 Not Available [facility] ([facility]) [address] [place], [address], 10/23/2023 11:10:27 10/22/19 24 10/23/2023 COMP. METAB OLIC PANEL (14) glucose 84 mg/dL 70-99 Not Available [facility] ([facility]) [address] [place], [address], 10/23/2023 11:10:28 10/22/19 24 10/23/2023 COMP. METAB OLIC PANEL (14) BUN 30 mg/dL 8-27 above high normal Not Available [facility] ([facility]) [address] [place], [address], 10/23/2023 11:10:28 10/22/19 24 10/23/2023 COMP. METAB OLIC PANEL (14) creatinine 0.75 mg/dL 0.57-1 .00 Not Available [facility] ([facility]) [address] [place], [address], 10/23/2023 11:10:28 10/22/19 24 10/23/2023 COMP. METAB OLIC PANEL (14) eGFR 80 mL/mi n/1.7 3 >59 Not Available [facility] ([facility]) [address] [place], [address], 10/23/2023 11:10:28 10/22/19 24 10/23/2023 COMP. METAB OLIC PANEL (14) BUN/creatini ne ratio 40 12-28 above high normal Not Available [facility] ([facility]) [address] [facility] [place], [address], 10/23/2023 11:10:28 10/22/19 24 10/23/2023 COMP. METAB OLIC PANEL (14) sodium 140 mmol/ L 134-14 4 Not Available [facility] ([facility]) [address] [facility] [place], [address], 10/23/2023 11:10:28 10/22/19 24 10/23/2023 COMP. METAB OLIC PANEL (14) potassium 4.3 mmol/ L 3.5-5. 2 Not Available [facility] ([facility]) [address] [facility] [place], [address], 10/23/2023 11:10:28 10/22/19 24 10/23/2023 COMP. METAB OLIC PANEL (14) chloride 104 mmol/ L 96-106 Not Available [facility] ([facility]) [address] [place], [address], 10/23/2023 11:10:28 10/22/19 24 10/23/2023 COMP. METAB OLIC PANEL (14) carbon dioxide, total 23 mmol/ L 20-29 Not Available [facility] ([facility]) [address] [place], [address], 10/23/2023 11:10:28 10/22/19 24 10/23/2023 COMP. METAB OLIC PANEL (14) calcium 9.6 mg/dL 8.7-10 .3 Not Available [facility] ([facility]) [address] [facility] [place], [address], 10/23/2023 11:10:28 10/22/19 24 10/23/2023 COMP. METAB OLIC PANEL (14) protein, total 6.3 g/dL 6.0-8. 5 Not Available [facility] ([facility]) [address] [place], [address], 10/23/2023 11:10:28 10/22/19 24 10/23/2023 COMP. METAB OLIC PANEL (14) albumin 4.2 g/dL 3.7-4. 7 Not Available [facility] ([facility]) [address], [place], [address], 10/23/2023 11:10:28 10/22/19 24 10/23/2023 COMP. METAB OLIC PANEL (14) globulin, total 2.1 g/dL 1.5-4. 5 Not Available [facility] ([facility]) [address] [place], [address], 10/23/2023 11:10:28 10/22/19 24 10/23/2023 COMP. METAB OLIC PANEL (14) bilirubin, total 0.7 mg/dL 0.0-1. 2 Not Available [facility] ([facility]) [address], [place], [address], 10/23/2023 11:10:28 10/22/19 24 10/23/2023 COMP. METAB OLIC PANEL (14) alkaline phosphatase 55 IU/L 44-121 Not Available [facility] ([facility]) [address], [place], [address], 10/23/2023 11:10:28 10/22/19 24 10/23/2023 COMP. METAB OLIC PANEL (14) AST (SGOT) 17 IU/L 0-40 Not Available [facility] ([facility]) [address], [place], [address], 10/23/2023 11:10:28 10/22/19 24 10/23/2023 COMP. METAB OLIC PANEL (14) ALT (SGPT) 13 IU/L 0-32 Not Available [facility] ([facility]) [address] [place], [address], 10/23/2023 11:10:28 10/22/19 24 10/23/2023 CBC WITH DIFFE RENTI AL/PL ATELE T WBC 6.1 x10e3 /uL 3.4-10 .8 Not Available [facility] ([facility]) [address] [facility], [place], [address], 10/23/2023 11:10:28 10/22/19 24 10/23/2023 CBC WITH DIFFE RENTI AL/PL ATELE T RBC 4.38 x10e6 /uL 3.77-5 .28 Not Available [facility] ([facility]) [address] [facility], [place], [address], 10/23/2023 11:10:28 10/22/19 24 10/23/2023 CBC WITH DIFFE RENTI AL/PL ATELE T hemoglobin 14.1 g/dL 11.1-1 5.9 Not Available [facility] ([facility]) [address] [facility], [place], [address], 10/23/2023 11:10:28 10/22/19 24 10/23/2023 CBC WITH DIFFE RENTI AL/PL ATELE T hematocrit 43.6 % 34.0-4 6.6 Not Available [facility] ([facility]) [address] [facility], [place], [address], 10/23/2023 11:10:28 10/22/19 24 10/23/2023 CBC WITH DIFFE RENTI AL/PL ATELE T MCV 100 fL 79-97 above high normal Not Available [facility] ([facility]) [address] [place], [address], 10/23/2023 11:10:28 10/22/19 24 10/23/2023 CBC WITH DIFFE RENTI AL/PL ATELE T MCH 32.2 pg 26.6-3 3.0 Not Available [facility] ([facility]) [address] [place], [address], 10/23/2023 11:10:28 10/22/19 24 10/23/2023 CBC WITH DIFFE RENTI AL/PL ATELE T MCHC 32.3 g/dL 31.5-3 5.7 Not Available [facility] ([facility]) [address] [facility], [place], [address], 10/23/2023 11:10:28 10/22/19 24 10/23/2023 CBC WITH DIFFE RENTI AL/PL ATELE T RDW 12.0 % 11.7-1 5.4 Not Available [facility] ([facility]) [address] [facility], [place], [address], 10/23/2023 11:10:28 10/22/19 24 10/23/2023 CBC WITH DIFFE RENTI AL/PL ATELE T platelets 182 x10e3 /uL 150-45 0 Not Available [facility] ([facility]) [address] [facility], [place], [address], 10/23/2023 11:10:28 10/22/19 24 10/23/2023 CBC WITH DIFFE RENTI AL/PL ATELE T neutrophils 66 % notest ab. Not Available [facility] ([facility]) [address] [facility], [place], [address], 10/23/2023 11:10:28 10/22/19 24 10/23/2023 CBC WITH DIFFE RENTI AL/PL ATELE T lymphs 24 % notest ab. Not Available [facility] ([facility]) [address] [facility], [place], [address], 10/23/2023 11:10:28 10/22/19 24 10/23/2023 CBC WITH DIFFE RENTI AL/PL ATELE T monocytes 7 % notest ab. Not Available [facility] ([facility]) [address] [facility], [place], [address], 10/23/2023 11:10:28 10/22/19 24 10/23/2023 CBC WITH DIFFE RENTI AL/PL ATELE T eos 2 % notest ab. Not Available [facility] ([facility]) [address] [facility], [place], [address], 10/23/2023 11:10:28 10/22/19 24 10/23/2023 CBC WITH DIFFE RENTI AL/PL ATELE T basos 1 % notest ab. Not Available [facility] ([facility]) [address] [facility], [place], [address], 10/23/2023 11:10:28 10/22/19 24 10/23/2023 CBC WITH DIFFE RENTI AL/PL ATELE T neutrophils (absolute) 4.1 x10e3 /uL 1.4-7. 0 Not Available [facility] ([facility]) [address] [place], [address], 10/23/2023 11:10:28 10/22/19 24 10/23/2023 CBC WITH DIFFE RENTI AL/PL ATELE T lymphs (absolute) 1.5 x10e3 /uL 0.7-3. 1 Not Available [facility] ([facility]) [address] [place], [address], 10/23/2023 11:10:28 10/22/19 24 10/23/2023 CBC WITH DIFFE RENTI AL/PL ATELE T monocytes(ab solute) 0.4 x10e3 /uL 0.1-0. 9 Not Available [facility] ([facility]) [address] [place], [address], 10/23/2023 11:10:28 10/22/19 24 10/23/2023 CBC WITH DIFFE RENTI AL/PL ATELE T eos (absolute) 0.1 x10e3 /uL 0.0-0. 4 Not Available [facility] ([facility]) [address] [place], [address], 10/23/2023 11:10:28 10/22/19 24 10/23/2023 CBC WITH DIFFE RENTI AL/PL ATELE T baso (absolute) 0.1 x10e3 /uL 0.0-0. 2 Not Available [facility] ([facility]) [address] [facility], [place], [address], 10/23/2023 11:10:28 10/22/19 24 10/23/2023 CBC WITH DIFFE RENTI AL/PL ATELE T immature granulocytes 0 % notest ab. Not Available [facility] ([facility]) [address] [facility], [place], [address], 10/23/2023 11:10:28 10/22/19 24 10/23/2023 CBC WITH DIFFE RENTI AL/PL ATELE T immature grans (abs) 0.0 x10e3 /uL 0.0-0. 1 Not Available [facility] ([facility]) [address] [facility], [place], [address], 10/23/2023 11:10:28 04/21/19 25 04/22/2024 URIC A+ESR -BRANDEN+ JULIEN+R F QN+CR ... uric acid 3.8 mg/dL 3.1-7. 9 Thera chris jones t for gout patie nts: <6.0 Not Available [facility] ([facility]) [address] [facility], [place], [address], 04/22/2024 15:12:44 04/21/19 25 04/22/2024 URIC A+ESR -BRANDEN+ JULIEN+R F QN+CR ... JULIEN direct NEGATI VE negati ve Not Available [facility] ([facility]) [address] [facility], [place], [address], 04/22/2024 15:12:44 04/21/19 25 04/22/2024 URIC A+ESR -BRANDEN+ JULIEN+R F QN+CR ... rheumatoid factor (rf) 11.6 IU/mL <14.0 Not Available [facility] ([facility]) [address] [facility], [place], [address], 04/22/2024 15:12:44 04/21/19 25 04/22/2024 URIC A+ESR -BRANDEN+ JULIEN+R F QN+CR ... C-reactive protein, quant <1 mg/L 0-10 Not Available [facility] ([facility]) [address] [facility], [place], [address], 04/22/2024 15:12:44 04/21/19 25 04/22/2024 URIC A+ESR -BRANDEN+ JULIEN+R F QN+CR ... antistreptol ysin O Ab 46.9 IU/mL 0.0-20 0.0 Not Available [facility] ([facility]) [address] [facility], [place], [address], 04/22/2024 15:12:44 04/21/19 25 04/22/2024 URIC A+ESR -BRANDEN+ JULIEN+R F QN+CR ... sedimentatio n rate-westerg clarissa 2 mm/HR 0-40 Not Available [facility] ([facility]) [address] [place] [address], [place], [address], 04/22/2024 15:12:44 02/25/20 24 02/25/2024 US, duple x, venou s, lower extre mity No observ ation record ed. [address], [place], [address], 02/26/2024 09:26:20 02/25/20 24 02/25/2024 XR, lumba r spine , 2 view No observ ation record ed. [address], [place], [address], 02/26/2024 12:02:16 02/25/20 24 02/25/2024 XR, hip + pelvi s, unila teral , 2 or 3 view No observ ation record ed. [facility] [address] [facility] [address], [place], [address], 02/26/2024 13:36:24 02/28/20 elect rocar diogr am No observ ation record ed. CHRISTINE In-Office Order Internal Use Only DO Not Attach Compendium DO Not Attach Compendium, Do Not Delete/merge, [id number] 02/28/2024 11:16:26 02/28/20 24 02/28/2024 elect rocar diogr am No observ ation record ed. CHRISTINE In-Office Order Internal Use Only DO Not Attach Compendium DO Not Attach Compendium, Do Not Delete/merge, [id number] 02/28/2024 11:23:38 03/21/19 25 03/20/2024 XR, knee, 3 view No observ ation record ed. [address], [place], [address], 03/26/2024 10:09:35 04/04/19 25 04/04/2024 US, doppl er, venou s No observ ation record ed. [place] [id number], [place], [address], 04/10/2024 09:08:26 Result Notes None recorded. Problems Name Problem SNOMED Code Status Onset Date Resolution Date Notes Provider Name and Address Organization Details Recorded Time Essential hypertensio n 11470723 Active 2023 Pito Byrd [place] null, [place] [facility] 11:45:46 Hyperlipide rafi 29634227 Active 2023 Pito Byrd [place], [place] [facility] 11:45:47 Osteoarthri tis 974854554 Active 2023 Pito Byrd [place], [place] [facility] 11:45:48 Mammogram declined 850982798 Active 2023 Jazmyn Clemens MD Attn: Amanda east,[address] [place], [address], [place] [facility] 4 16:23:57 Colonoscopy declined 9325354591713 00 Active 2023 Jazmyn Clemens MD Attn: Amanda east,[address] , [place], [address], [facility] 4 16:23:57 Problem Notes None recorded. Procedures Surgical History Date Name Laterality Status Provider Name and Address Organization Details Recorded Time 03/17/19 Total hysterectomy completed Elida Perez [place] [facility] 02/28/2024 10:39:50 Hernia Repair completed Jinny Tatum MA [facility] 06/19/2023 11:11:56 colonoscopy completed Jinny Tatum [place] [facility] 06/19/2023 11:15:11 Imaging Results Imaging Date Name Status LastModified by Organization Details LastModified Time 02/25/2024 US, duplex, venous, lower extremity completed [address] [place] [address], [address], 02/26/2024 09:26:20 02/25/2024 XR, lumbar spine, 2 view completed [address], [place], [address], 02/26/2024 12:02:16 02/25/2024 XR, hip + pelvis, unilateral, 2 or 3 view completed [address], [place], [address], 02/26/2024 13:36:24 02/28/2024 electrocardiogram completed [facility] Order Internal Use Only DO Not Attach Compendium DO Not Attach Compendium, Do Not Delete/merge, [id number] 02/28/2024 11:16:26 02/28/2024 electrocardiogram completed [facility] Order Internal Use Only DO Not Attach Compendium DO Not Attach Compendium, Do Not Delete/merge, [id number] 02/28/2024 11:23:38 03/20/2024 XR, knee, 3 view completed [address], [place], [address], 03/26/2024 10:09:35 04/04/2024 US, doppler, venous completed [facility] [address] [facility] [address], [place], [address], 04/10/2024 09:08:26 Procedure Notes None recorded. Medical Equipment None Reported. Allergies No known drug allergies Medications Name Sig Start Date Stop Date Status Note LastModified by Organization Details LastModified Time losartan 50 mg tablet TAKE 1 TABLET BY MOUTH EVERY DAY 2024 active Not Available Not Available Not Avai lable latanoprost 0.005 % eye drops APPLY 1 DROP INTO BOTH EYES EVERY NIGHT AT BEDTIME 04/21 completed Not Available Not Available Not Available atorvastati n 10 mg tablet TAKE 1 TABLET BY MOUTH EVERY DAY 2024 active Not Available Not Available Not Avai lable prednisolon e acetate 1 % eye drops,suspe nsion PLEASE SEE ATTACHED FOR DETAILED DIRECTION S 04/21 completed Not Available Not Available Not Available losartan 25 mg tablet TAKE 1 TABLET BY MOUTH EVERY DAY 06/02 completed Not Available Not Available Not Available naproxen 500 mg tablet TAKE 1 TABLET BY MOUTH TWICE A DAY NEEDED active Not Available Not Available No t Available Vitals Date Recorded Body weight Body temperature Oxygen saturation Oxygen saturation in Arterial blood by Pulse oximetry Heart rate Systolic blood pressure Diastolic blood pressure Provider Name and Address Organization Details Last Updated DateTime 4 38674.6 4 g 98.6 [degF] 98 % 98 % 66 /min 140 mm[Hg] 70 mm[Hg] Jinny Tatum MA [facility] 4 11:16:52 Date Recorded Body weight Body mass index (BMI) Body height Heart rate Oxygen saturation Oxygen saturation in Arterial blood by Pulse oximetry Systolic blood pressure Diastolic blood pressure Provider Name and Address Organization Details Last Updated DateTime 4 99245.3 6 g 24.2 kg/m2 160.02 cm 90 /min 97 % 97 % 130 mm[Hg] 72 mm[Hg] Jinny Tatum [place] [facility] 4 11:25:59 Date Recorded Pain severity - 0-10 verbal numeric rating [Score] - Reported Provider Name and Address Organization Details Last Updated DateTime 07/24/2023 0 Tiffanie Mcmullen [facility] 07/24/2023 11:27:21 Date Recorded Body height Body mass index (BMI) Body weight Heart rate Oxygen saturation Oxygen saturation in Arterial blood by Pulse oximetry Systolic blood pressure Diastolic blood pressure Provider Name and Address Organization Details Last Updated DateTime 4 160.02 cm 24 kg/m2 13767.7 7 g 82 /min 97 % 97 % 130 mm[Hg] 66 mm[Hg] Kait Jones MA [facility] 4 11:28:22 Date Recorded Body height Body mass index (BMI) Body weight Heart rate Oxygen saturation Oxygen saturation in Arterial blood by Pulse oximetry Systolic blood pressure Diastolic blood pressure Provider Name and Address Organization Details Last Updated DateTime 4 160.02 cm 23.9 kg/m2 65673.3 3 g 88 /min 99 % 99 % 130 mm[Hg] 70 mm[Hg] Elida Perez MA [facility] 4 10:49:35 Date Recorded Body height Body mass index (BMI) Body weight Heart rate Oxygen saturation Oxygen saturation in Arterial blood by Pulse oximetry Systolic blood pressure Diastolic blood pressure Provider Name and Address Organization Details Last Updated DateTime 5 160.02 cm 23 kg/m2 99506.3 7 g 83 /min 99 % 99 % 110 mm[Hg] 60 mm[Hg] Elida Perez MA [facility] 5 10:58:35 Social History Question Answer Notes LastModified by Organizat ion Details LastModified Time Tobacco Smoking Status Never Smoker Jinny Tatum MA [facility] 06/19/2023 11:12:34 Do You Have An Advance [...] Or The Highest Degree You Have Received? [id number] Information not available 07/24/2023 Are There Any [...] 7 Days, How Much Pain Have You [place]? Some Information not available 07/24/2023 In General, [...] Past 7 Days, How Often Have You [place] Sleepy In The Daytime? Usually Information not available 07/24/2023 # Alcohol Drinks Per Week 0 Information not available 07/24/2023 What Was The Date Of Your Most Recent Tobacco Screening? 04/21/2024 Information not available 04/21/2024 What Is Your Relationship Status? Information not available 06/19/2023 Do You Use Your Seat Belt Or Car Seat Routinely? Yes Information not available 07/24/2023 Do You Have Smoke And Carbon Monoxide Detectors In Your Home? Yes Information not available 07/24/2023 Do You Feel Stressed (tense, Restless, Nervous, Or Anxious, Or Unable To Sleep At Night)? [id number] Information not available 07/24/2023 Do You Use [...] Skin Problems N Anemia N Heart Attack ([place]) N Anxiety Disorder N Diabetes N Muscle, [...] or 50 mcg/0.25mL dose 03/21/2021 completed T[place], [place] [facility] 07/23/2023 16:01:22 COVID-19, mRNA, LNP-S, PF, 30 mcg/0.3 mL dose 08/04/2020 completed [place] [facility] 07/23/2023 16:01:22 COVID-19, mRNA, LNP-S, PF, 30 mcg/0.3 mL dose 08/25/2020 completed [place] [facility] 07/23/2023 16:01:22 COVID-19, mRNA, LNP-S, bivalent, PF, 50 mcg/0.5 mL or 25mcg/0.25 mL dose 12/26/2021 completed [place] [facility] 07/23/2023 16:01:22 COVID-19, mRNA, LNP-S, PF, jill-sucrose, 30 mcg/0.3 mL 12/20/2022 completed Tiff[place] [facility] 07/23/2023 16:01:22 Past Encounters Encounter ID Performer Location Encounter Start Date Encounter Closed Date Diagnosis/Indication Diagnosis SNOMED-CT Code Diagnosis ICD10 Code Diagnosis Note [id number] Jazmyn Clemens MD [facility] (Adult Med) [address] [place] [id number] 06/19/2023 10:36:25 06/19/2023 11:50:56 Essential hypertension 78266043 I10 Hyperlipidemia 59280097 E78.5 Osteoarthritis 203178106 M19.90 Mammogram declined 89666 5004 Z53.20 Colon canc er screening declined 7187149680 9109 Z53.20 [id number] MD [facility] (Adult Med) [address] [place] [phone] 07/24/2023 10:34:43 07/24/2023 12:53:27 Adult health examination 947786488 Z00.00 Health Risk Assessment collected and reviewed [id number] MD [facility] (Adult Med) [address] [place] [id number] 10/22/2023 10:57:03 10/22/2023 12:43:57 Essential hypertension 62852736 I10 Hyperlipidemia 75667589 E78.5 Osteoarthritis 448457052 M19.90 Colonoscopy declined 230 7769358 51339 Z53.20 Mammogram declined 32750 5004 Z53.20 [id number] Jazmyn Clemens MD [facility] (Adult Med) [address] [place] [phone] 02/28/2024 10:32:48 02/28/2024 12:11:26 Body mass index 20-24 - normal 371383306 Z68.23 Pre-surger y evaluation 759332074 Z01.818 Pain of le ft knee joint 0827510592 66126 M25.562 Essential hypertension 13917056 I10 Hyperlipidemia 15940986 E78.5 [id number] Jazmyn Clemens MD [facility] (Adult Med) [address] [place] [id number] 0 04/21/2024 10:41:41 04/21/2024 11:32:29 Body mass index 20-24 - normal 406030115 Z68.23 Pain of knee region 1003 772744 M25.569 Both knees Essential hypertension 14219701 I10 Hyperlipidemia 37059603 E78.5 Osteoarthritis 887571468 M19.90 Health Concerns Section Related Observation LastModified by Organization Detai ls LastModified Time None Recorded Concern Status LastModified by Organization Details LastModified Time None Recorded Advance Directives Directive Y: Payers Encounter Date Sequence Insurance Name Policy Number Policy Andres Covered Member ID Andres Member ID Guarantor Name 06/19/2023 1 [facility] (MEDICARE REPLACEMENT/A DVANTAGE - O) [id number] Charla A Quarles [id number] Charla Quarles 06/19/2023 2 [place] Charla A Quarles [id number] Charla Quarles 07/24/2023 1 [facility] (MEDICARE REPLACEMENT/A DVANTAGE - HMO) [id number] Charla A Quarles [id number] Charla Quarles 07/24/2023 2 [place] Charla A Quarles [id number] Charla Quarles 10/22/2023 1 [facility] (MEDICARE REPLACEMENT/A DVANTAGE - HMO) [id number] Charla A Quarles [id number] Charla Quarles 10/22/2023 2 [place] Charla A Quarles [id number] Charla Quarles 02/28/2024 1 [facility] (MEDICARE REPLACEMENT/A DVANTAGE - HMO) [id number] Charla A Quarles [id number] Charla Quarles 02/28/2024 2 [place] Charla A Quarles [id number] Charla Quarles 04/21/2024 1 [facility] (MEDICARE REPLACEMENT/A DVANTAGE - HMO) [id number] Charla A Quarles [id number] Charla Quarles 04/21/2024 2 [place] Charla A Quarles [id number] Charla Quarles Notes Date Note Type Note Provider Name and Address Organization Details Recorded Time 06/19/2023 text/html 83-year-old with hypertension dyslipidemia and arthritis who comes in for continuity of care she has been taking her atorvastatin losartan and naproxen without any problem Jazmyn Clemens MD Attn: Account[address] [place], [address], [facility] 07/17/2023 22:16:07 07/24/2023 text/html MAW 2Reported bypatient.Diet [...] home Jazmyn Clemens MD Attn: Accounting[address] [place], [address], [facility] 07/29/2023 20:49:00 10/22/2023 text/html hypertension no headache dizziness or palpitations. 2. Hyperlipidemia takes the atorvastatin no side effects. Jazmyn Clemens MD Attn: Accounting[address] [place], [address], [facility] 11/09/2023 16:24:34 02/28/2024 text/html 1. Going to [...] needed Jazmyn Clemens MD Attn: Accounting[address] [place], [address], [facility] 02/29/2024 13:49:40 04/21/2024 text/html hypertension blo od pressure controlled no chest pain headache or dizziness. Hyperlipidemia taking her atorvastatin trying to watch her intake of saturated fat. She has a lot of problems with her knees bilaterally they seem to bother her more and more she wants to avoid surgery but she is really being hampered with regards to her quality of life Jazmyn Clemens MD Attn: [address] [facility], [place], [address], [place] [facility] 05/17/2024 14:05:49 OBGyn Episode No OBEpisode recorded.
--- OUTSIDE RECORDS SUMMARY | 2024-07-06 14:10 | XMS_ITS | Data Portability ---
Author Organization [place] [employer], Main Office Address [address] [place] [address] Care Team Providers Care Bank Note Designer Name Role Phone JAZMYN CLEMENS Primary Care Provider [phone] JAZMYN CLEMENS Referring Provider Assessment Encounter Date Assessment Date Assessment LastModified by Organization Details LastModified Time 08/27/2022 08/27/2022 Continue current therapy refuses any cancer screenings at this time specifically mammogram should blood pressure check in 3 weeks will see me in 6 months [email or web address] Not available 09/01/2022 21:01:15 02/18/2023 02/18/2023 X-ray knees Orthopedics blood work refuses any breast cancer or colon cancer screening follow-up 4 months [email or web address] Not available 02/23/2023 12:03:57 04/28/2024 04/28/2024 83-year-old patient presents today for bilateral knee pain that has been going on for many years but has recently gotten worse. She rates her pain 8/10. Left side is worse than the right. She states that the knees feel like they are burning at times and it keeps her awake at night. The pain occasionally travels up to her hips as well. She states that her primary put her on a medication for her pain that made her start to fall so she stopped taking it. She is unsure what this was. She states that she went to therapy 1 time and it made the pain worse. Otherwise she has tried heat and Tylenol, which sometimes helps. Review of systems per patient questionnaire Imaging: X-rays reviewed of bilateral knees show no acute bony abnormality or fracture. She has moderate degenerative osteoarthritic changes with lateral joint space narrowing and osteophyte formation bilaterally. physical exam: Antalgic gait with a cane. Tenderness to palpitation on lateral sides of knee. Range of motion 5 to 110. Pain with deep flexion. Stable ligaments. Sensation intact throughout. Her bilateral osteoarthritis we discussed that treatment would be physical therapy, anti-inflammatori es or Tylenol, and cortisone injection. She is not interested in going to therapy as she felt like it caused her more pain. We will provide her with a knee exercise handout. She prefers Tylenol and would like to continue to take that. Due to her constant pain and pain keeping her awake at night we discussed that she may benefit from cortisone injections. She states that she is too fearful of needles and can not go through with this today. We discussed that we can see her back in 4-6 weeks after trying therapy exercises or sooner if she would like to proceed with the cortisone injections. She is in agreement with this plan. [email or web address] Not available 04/28/2024 15:20:29 Plan of Treatment Reminders Order Date Submit Date Provider Last Modified By Organization Details Last Modified Time Details Appointments None recorded. Lab CMP, serum or plasma [address] (Lab), [address] [place] [address], [id number], 3 17:28:51 lipid panel, serum [address] (Lab), [address] [place] [address], [address], 3 17:28:51 CBC w/ auto diff [address] (Lab), [address] [place] [address], [id number], 3 17:28:51 CBC w/ auto diff 2022 023 [facility] (Lab), [address] [place] [address], [address], 3 16:47:17 lipid panel, serum 2022 023 [facility] (Lab), [address] [place], [address], 3 17:15:54 CMP, serum or plasma 2022 023 [facility] (Lab), [address] [place], [address], 3 17:15:50 Referral orthopedic surgeon referral 2022 023 [email or web address] Sivakumar Jaime MD, [address], [facility], [place], [address], 4 19:04:54 Procedures None recorded. Surgeries None recorded. Imaging XR, knee 2024 025 [email or web address] [facility], [address] [facility] [address] [facility], [place], [address], 5 10:06:55 XR, knee 2022 023 [facility] ([facility]), [address] [place], [address], 3 10:14:42 Medication Orders losartan 50 mg tablet 2022 023 [email or web address] [id number] [facility], [address] [place], [address], 3 13:49:59 Patient TargetsNo targets recorded. Patient [...] 140 mmol/ L 137-14 5 Not Available [facility] (Lab) [address] [place], [address], 03/20/2022 12:43:23 03/20/19 23 03/20/2022 COMPR EHENS JESSICA METAB OLIC PANEL potassium 4.1 mmol/ L 3.5-5. 1 Not Available [facility] (Lab) [address] [place], [address], 03/20/2022 12:43:23 03/20/19 23 03/20/2022 COMPR EHENS JESSICA METAB OLIC PANEL chloride 107 mmol/ L 98-107 Not Available [facility] (Lab) [address] [place], [address], 03/20/2022 12:43:23 03/20/19 23 03/20/2022 COMPR EHENS JESSICA METAB OLIC PANEL carbon dioxide 24 mmol/ L 22-30 Not Available [facility] (Lab) [address] [place], [address], 03/20/2022 12:43:23 03/20/19 23 03/20/2022 COMPR EHENS JESSICA METAB OLIC PANEL anion gap 13.1 mmol/ L 14-22 low Not Available [facility] (Lab) [address] [place], [address], 03/20/2022 12:43:23 03/20/19 23 03/20/2022 COMPR EHENS JESSICA METAB OLIC PANEL glucose 90 mg/dL 70-99 Not Available [facility] (Lab) [address] [place], [address], 03/20/2022 12:43:23 03/20/19 23 03/20/2022 COMPR EHENS JESSICA METAB OLIC PANEL BUN 22 mg/dL 8-19 high Not Available [facility] (Lab) [address] [place], [address], 03/20/2022 12:43:23 03/20/19 23 03/20/2022 COMPR EHENS JESSICA METAB OLIC PANEL creatinine 0.77 mg/dL 0.66-1 .25 Not Available [facility] (Lab) [address] [place], [address], 03/20/2022 12:43:23 03/20/1903/20/2022 COMPR EHENS JESSICA METAB OLIC PANEL GFR >60 Refer ence Range : Slade ge GFR Healt hy Adult : >60 [...] calcu lator is avail able on the [facility] websi te: https :[email or web address] rosario.teetee suh/pr ofess ional s/kdo qi/gf r_cal culat or Not Available [facility] (Lab) [address] [place], [address], 03/20/2022 12:43:23 03/20/1903/20/2022 COMPR EHENS JESSICA METAB OLIC PANEL alkaline phosphatase 61 U/L 38-126 Not Available [facility] (Lab) [address] [place], [address], 03/20/2022 12:43:23 03/20/19 23 03/20/2022 COMPR EHENS JESSICA METAB OLIC PANEL alanine aminotransfe rase 17 U/L 0-35 Not Available [facility] (Lab) [address] [place], [address], 03/20/2022 12:43:23 03/20/19 23 03/20/2022 COMPR EHENS JESSICA METAB OLIC PANEL aspartate aminotransfe rase 19 U/L 15-37 Not Available [facility] (Lab) [address] [place], [address], 03/20/2022 12:43:23 03/20/19 23 03/20/2022 COMPR EHENS JESSICA METAB OLIC PANEL bilirubin, total 0.60 mg/dL 0.20-1 .30 Not Available [facility] (Lab) [address] [place], [address], 03/20/2022 12:43:23 03/20/19 23 03/20/2022 COMPR EHENS JESSICA METAB OLIC PANEL calcium 9.1 mg/dL 8.4-10 .2 Not Available [facility] (Lab) [address] [place], [address], 03/20/2022 12:43:23 03/20/19 23 03/20/2022 COMPR EHENS JESSICA METAB OLIC PANEL total protein 6.5 g/dL 6.3-8. 2 Not Available [facility] (Lab) [address] [place], [address], 03/20/2022 12:43:23 03/20/19 23 03/20/2022 COMPR EHENS JESSICA METAB OLIC PANEL albumin 4.1 g/dL 3.0-4. 4 Not Available [facility] (Lab) [address] [place], [address], 03/20/2022 12:43:23 03/20/19 23 03/20/2022 COMPR EHENS JESSICA METAB OLIC PANEL globulin 2.4 g/dL 2.6-4. 2 low Not Available [facility] (Lab) [address] [place], [address], 03/20/2022 12:43:23 03/20/19 23 03/20/2022 COMPR EHENS JESSICA METAB OLIC PANEL A/G ratio 1.7 ratio 1.0-2. 0 Not Available [facility] (Lab) [address] [place], [address], 03/20/2022 12:43:23 03/20/19 23 03/20/2022 SEDIM ENTAT ION RATE erythrocyte sedimentatio n rate 12 mm/HR 0-20 Not Available [facility] (Lab) [address] [place], [address], 03/20/2022 12:30:05 03/20/1903/20/2022 C REACT JESSICA PROTE IN,UL TRA SENS C-reactive protein 0.14 mg/dL 0.0-0. 5 Not Available [facility] (Lab) [address] [place], [address], 03/20/2022 12:54:39 03/20/1903/20/2022 URIC ACID SERUM uric acid 4.7 mg/dL 2.5-6. 2 Not Available [facility] (Lab) [address] [place], [address], 03/20/2022 12:43:31 03/20/19 23 03/20/2022 LIPID PANEL cholesterol 235 mg/dL 140-19 9 high NIH FRANK NSUS RECOM MENDA TION FOR FRANCO STERO L: ADULT CHILD LOW RISK: <200 <170 BORDE RLINE : <200- 239 ----- HIGH RISK: >240 >200 Not Available [facility] (Lab) [address] [place], [address], 03/20/2022 12:43:27 03/20/19 23 03/20/2022 LIPID PANEL triglyceride s 139 mg/dL 0-150 NIH FRANK NSUS REPOR T RECOM MENDA TION FOR TRIGL YCERI JOVANI: ADULT CHILD LOW RISK: <150 ----- BODER LINE: 150-1 99 ----- HIGH RISK: >200 ----- Not Available [facility] (Lab) [address] [place], [address], 03/20/2022 12:43:27 03/20/19 23 03/20/2022 LIPID PANEL HDL cholesterol 59 mg/dL 40- Not Available [facility] (Lab) [address] [place], [address], 03/20/2022 12:43:27 03/20/19 23 03/20/2022 LIPID PANEL LDL cholesterol, calculated 148 mg/dL 0-130 high NIH FRANK NSUS REPOR T RECOM MENDA TIONS FOR LDL: ADULT CHILD LOW RISK <130 <110 (OPTI MAL LDL) <100 ----- LISA RLINE : 130-1 59 ----- HIGH RISK: >160 >130 A TRIGL YCERI DE RESUL T >400 INVAL IDATE S THE CALCU LATIO N FOR LDL FRACT IONAT ION - THE LDL RESUL T WILL NOT BE REPOR SHERI. Not Available [facility] (Lab) [address] [place], [address], 03/20/2022 12:43:27 03/20/1903/20/2022 CBC/C OMPLE TE BLD COUNT W/DIF F white blood cells 4.5 x10'3 /uL 4.2-10 .8 Not Available [facility] (Lab) [address] [place], [address], 03/20/2022 11:55:21 03/20/1903/20/2022 CBC/C OMPLE TE BLD COUNT W/DIF F red blood cells 4.56 x10'6 /uL 3.80-5 .20 Not Available [facility] (Lab) [address] [place], [address], 03/20/2022 11:55:21 03/20/19 23 03/20/2022 CBC/C OMPLE TE BLD COUNT W/DIF F hemoglobin 14.0 g/dL 12.0-1 5.6 Not Available [facility] (Lab) [address] [place], [address], 03/20/2022 11:55:21 03/20/19 23 03/20/2022 CBC/C OMPLE TE BLD COUNT W/DIF F hematocrit 42.8 % 35.7-4 5.7 Not Available [facility] (Lab) [address] [place], [address], 03/20/2022 11:55:21 03/20/19 23 03/20/2022 CBC/C OMPLE TE BLD COUNT W/DIF F mean red cell volume 93.9 fL 82.0-9 9.0 Not Available [facility] (Lab) [address] [place], [address], 03/20/2022 11:55:21 03/20/19 23 03/20/2022 CBC/C OMPLE TE BLD COUNT W/DIF F mean red cell hemoglobin 30.7 pg 27.0-3 3.0 Not Available [facility] (Lab) [address] [place], [address], 03/20/2022 11:55:21 03/20/19 23 03/20/2022 CBC/C OMPLE TE BLD COUNT W/DIF F mean RBC HGB concentratio n 32.7 g/dL 31.0-3 6.0 Not Available [facility] (Lab) [address] [place], [address], 03/20/2022 11:55:21 03/20/19 23 03/20/2022 CBC/C OMPLE TE BLD COUNT W/DIF F red cell distribution width 12.2 % 11.8-1 5.5 Not Available [facility] (Lab) [address] [place], [address], 03/20/2022 11:55:21 03/20/19 23 03/20/2022 CBC/C OMPLE TE BLD COUNT W/DIF F platelets 187 x10'3 /uL 150-40 0 Not Available [facility] (Lab) [address] [place], [address], 03/20/2022 11:55:21 03/20/19 23 03/20/2022 CBC/C OMPLE TE BLD COUNT W/DIF F mean platelet volume 9.9 fL 9.0-12 .4 Not Available [facility] (Lab) [address] [place], [address], 03/20/2022 11:55:21 03/20/19 23 03/20/2022 CBC/C OMPLE TE BLD COUNT W/DIF F neutrophils 64.7 % 39.0-7 2.0 Not Available [facility] (Lab) [address] [place], [address], 03/20/2022 11:55:21 03/20/19 23 03/20/2022 CBC/C OMPLE TE BLD COUNT W/DIF F lymphocytes 26.0 % 16.0-4 7.0 Not Available [facility] (Lab) [address] [place], [address], 03/20/2022 11:55:21 03/20/1903/20/2022 CBC/C OMPLE TE BLD COUNT W/DIF F monocytes 6.5 % 5.0-12 .0 Not Available [facility] (Lab) [address] [place], [address], 03/20/2022 11:55:21 03/20/19 23 03/20/2022 CBC/C OMPLE TE BLD COUNT W/DIF F eosinophils 1.3 % 1.0-7. 0 Not Available [facility] (Lab) [address] [place], [address], 03/20/2022 11:55:21 03/20/1903/20/2022 CBC/C OMPLE TE BLD COUNT W/DIF F basophils 1.3 % 0.0-2. 0 Not Available [facility] (Lab) [address] [place], [address], 03/20/2022 11:55:21 03/20/1903/20/2022 CBC/C OMPLE TE BLD COUNT W/DIF F immature granulocytes 0.2 % 0.00-0 .50 Not Available [facility] (Lab) [address] [place], [address], 03/20/2022 11:55:21 03/20/19 23 03/20/2022 CBC/C OMPLE TE BLD COUNT W/DIF F neutrophils, absolute count 2.89 x10'3 /uL 1.5-8. 0 Not Available [facility] (Lab) [address] [place], [address], 03/20/2022 11:55:21 03/20/19 23 03/20/2022 CBC/C OMPLE TE BLD COUNT W/DIF F lymphocytes, absolute count 1.16 x10'3 /uL 1.07-3 .43 Not Available [facility] (Lab) [address] [place], [address], 03/20/2022 11:55:21 03/20/19 23 03/20/2022 CBC/C OMPLE TE BLD COUNT W/DIF F monocytes, absolute count 0.29 x10'3 /uL 0.29-0 .99 Not Available [facility] (Lab) [address] [place], [address], 03/20/2022 11:55:21 03/20/19 23 03/20/2022 CBC/C OMPLE TE BLD COUNT W/DIF F eosinophils, absolute count 0.06 x10'3 /uL 0.02-0 .53 Not Available [facility] (Lab) [address] [place], [address], 03/20/2022 11:55:21 03/20/19 23 03/20/2022 CBC/C OMPLE TE BLD COUNT W/DIF F basophils, absolute count 0.06 x10'3 /uL 0.01-0 .08 Not Available [facility] (Lab) [address] [place], [address], 03/20/2022 11:55:21 03/20/19 23 03/20/2022 CBC/C OMPLE TE BLD COUNT W/DIF F immature granulocytes ,absolute 0.01 x10'3 /uL 0.00-0 .05 Not Available [facility] (Lab) [address] [place], [address], 03/20/2022 11:55:21 03/20/19 23 03/20/2022 CBC/C OMPLE TE BLD COUNT W/DIF F nucleated red blood cells 0.0 % -0 Not Available [facility] (Lab) [address] [place], [address], 03/20/2022 11:55:21 03/20/19 23 03/20/2022 CBC/C OMPLE TE BLD COUNT W/DIF F NRBC# 0.00 x10'3 /uL Not Available [facility] (Lab) [address] [place], [address], 03/20/2022 11:55:21 04/25/19 23 05/02/2022 OVA + CYNDI ITE EXAM ova + parasite exam final report These resul ts were obtai anny using wet prepa ratio n(s) and trich truong stain ed smear . This test does not inclu de testi ng for Crypt ospor idium parvu m, Cyclo spora , or Micro spori santi. Not Available [facility] (Lab) [address] [place], [address], 05/02/2022 13:10:26 04/25/19 23 05/02/2022 OVA + CYNDI ITE EXAM result 1 commen t No ova, cysts , or cyndi ites seen. . One negat jessica speci men does not rule out the possi bilit y of a cyndi itic infec tion. Perfo rmed at: [facility] [address] [place] [address], [place] [address] 126 Lab Direc tor: Crow syed PhD, Phone : [phone] Not Available [facility] (Lab) [address] [place], [address], 05/02/2022 13:10:26 04/25/19 23 04/26/2022 SHIGA (E.CO LI) TOXIN STOOL toxin 1 negati ve Not Available [facility] (Lab) [address] [place], [address], 04/26/2022 10:19:45 04/25/19 23 04/26/2022 SHIGA (E.CO LI) TOXIN STOOL toxin 2 negati ve THIS TEST IS FOR THE RAPID DETEC TION OF SHIGA TOXIN -PROD UCING STRAI NS OF ENTER OHEMO RRAGH IC E. COLI. Not Available [facility] (Lab) [address] [place], [address], 04/26/2022 10:19:45 04/25/19 23 04/26/2022 SHIGA (E.CO LI) TOXIN STOOL QC pos positi ve Not Available [facility] (Lab) [address] [place], [address], 04/26/2022 10:19:45 04/25/19 23 04/26/2022 SHIGA (E.CO LI) TOXIN STOOL QC neg negati ve Not Available [facility] (Lab) [address] [place], [address], 04/26/2022 10:19:45 04/25/19 23 04/25/2022 C DIFFI CILE TOXIN /EPI, DNA toxigenic C.difficile negati ve Not Available [facility] (Lab) [address] [place], [address], 04/25/2022 13:52:17 04/25/19 23 04/25/2022 C DIFFI CILE TOXIN /EPI, DNA 027-nap1-bi strain negati ve 027-N API-B 1 STRAI N RESUL TS ARE CONSI DERED TO BE PRESU MPTIV E. Not Available [facility] (Lab) [address] [place], [address], 04/25/2022 13:52:17 08/28/19 23 08/27/2022 CBC/C OMPLE TE BLD COUNT W/DIF F white blood cells 5.8 x10'3 /uL 4.2-10 .8 Not Available [facility] (Lab) [address] [place], [address], 08/27/2022 16:47:17 08/28/19 23 08/27/2022 CBC/C OMPLE TE BLD COUNT W/DIF F red blood cells 5.04 x10'6 /uL 3.80-5 .20 Not Available [facility] (Lab) [address] [place], [address], 08/27/2022 16:47:17 08/28/19 23 08/27/2022 CBC/C OMPLE TE BLD COUNT W/DIF F hemoglobin 15.7 g/dL 12.0-1 5.6 high Not Available [facility] (Lab) [address] [place], [address], 08/27/2022 16:47:17 08/28/19 23 08/27/2022 CBC/C OMPLE TE BLD COUNT W/DIF F hematocrit 48.5 % 35.7-4 5.7 high Not Available [facility] (Lab) [address] [place], [address], 08/27/2022 16:47:17 08/28/1908/27/2022 CBC/C OMPLE TE BLD COUNT W/DIF F mean red cell volume 96.2 fL 82.0-9 9.0 Not Available [facility] (Lab) [address] [place], [address], 08/27/2022 16:47:17 08/28/19 23 08/27/2022 CBC/C OMPLE TE BLD COUNT W/DIF F mean red cell hemoglobin 31.2 pg 27.0-3 3.0 Not Available [facility] (Lab) [address] [place], [address], 08/27/2022 16:47:17 08/28/19 23 08/27/2022 CBC/C OMPLE TE BLD COUNT W/DIF F mean RBC HGB concentratio n 32.4 g/dL 31.0-3 6.0 Not Available [facility] (Lab) [address] [place], [address], 08/27/2022 16:47:17 08/28/19 23 08/27/2022 CBC/C OMPLE TE BLD COUNT W/DIF F red cell distribution width 12.4 % 11.8-1 5.5 Not Available [facility] (Lab) [address] [place], [address], 08/27/2022 16:47:17 08/28/19 23 08/27/2022 CBC/C OMPLE TE BLD COUNT W/DIF F platelets 182 x10'3 /uL 150-40 0 Not Available [facility] (Lab) [address] [place], [address], 08/27/2022 16:47:17 08/28/19 23 08/27/2022 CBC/C OMPLE TE BLD COUNT W/DIF F mean platelet volume 10.8 fL 9.0-12 .4 Not Available [facility] (Lab) [address] [place], [address], 08/27/2022 16:47:17 08/28/1908/27/2022 CBC/C OMPLE TE BLD COUNT W/DIF F neutrophils 67.1 % 39.0-7 2.0 Not Available [facility] (Lab) [address] [place], [address], 08/27/2022 16:47:17 08/28/19 23 08/27/2022 CBC/C OMPLE TE BLD COUNT W/DIF F lymphocytes 25.3 % 16.0-4 7.0 Not Available [facility] (Lab) [address] [place], [address], 08/27/2022 16:47:17 08/28/1908/27/2022 CBC/C OMPLE TE BLD COUNT W/DIF F monocytes 5.2 % 5.0-12 .0 Not Available [facility] (Lab) [address] [place], [address], 08/27/2022 16:47:17 08/28/1908/27/2022 CBC/C OMPLE TE BLD COUNT W/DIF F eosinophils 1.2 % 1.0-7. 0 Not Available [facility] (Lab) [address] [place], [address], 08/27/2022 16:47:17 08/28/1908/27/2022 CBC/C OMPLE TE BLD COUNT W/DIF F basophils 0.9 % 0.0-2. 0 Not Available [facility] (Lab) [address] [place], [address], 08/27/2022 16:47:17 08/28/19 23 08/27/2022 CBC/C OMPLE TE BLD COUNT W/DIF F immature granulocytes 0.3 % 0.00-0 .50 Not Available [facility] (Lab) [address] [place], [address], 08/27/2022 16:47:17 08/28/1908/27/2022 CBC/C OMPLE TE BLD COUNT W/DIF F neutrophils, absolute count 3.91 x10'3 /uL 1.5-8. 0 Not Available [facility] (Lab) [address] [place], [address], 08/27/2022 16:47:17 08/28/19 23 08/27/2022 CBC/C OMPLE TE BLD COUNT W/DIF F lymphocytes, absolute count 1.47 x10'3 /uL 1.07-3 .43 Not Available [facility] (Lab) [address] [place], [address], 08/27/2022 16:47:17 08/28/19 23 08/27/2022 CBC/C OMPLE TE BLD COUNT W/DIF F monocytes, absolute count 0.30 x10'3 /uL 0.29-0 .99 Not Available [facility] (Lab) [address] [place], [address], 08/27/2022 16:47:17 08/28/19 23 08/27/2022 CBC/C OMPLE TE BLD COUNT W/DIF F eosinophils, absolute count 0.07 x10'3 /uL 0.02-0 .53 Not Available [facility] (Lab) [address] [place], [address], 08/27/2022 16:47:17 08/28/1908/27/2022 CBC/C OMPLE TE BLD COUNT W/DIF F basophils, absolute count 0.05 x10'3 /uL 0.01-0 .08 Not Available [facility] (Lab) [address] [place], [address], 08/27/2022 16:47:17 08/28/19 23 08/27/2022 CBC/C OMPLE TE BLD COUNT W/DIF F immature granulocytes ,absolute 0.02 x10'3 /uL 0.00-0 .05 Not Available [facility] (Lab) [address] [place], [address], 08/27/2022 16:47:17 08/28/19 23 08/27/2022 CBC/C OMPLE TE BLD COUNT W/DIF F nucleated red blood cells 0.0 % -0 Not Available [facility] (Lab) [address] [place], [address], 08/27/2022 16:47:17 08/28/19 23 08/27/2022 CBC/C OMPLE TE BLD COUNT W/DIF F NRBC# 0.00 x10'3 /uL Not Available [facility] (Lab) [address] [place], [address], 08/27/2022 16:47:17 08/28/19 23 08/27/2022 COMPR EHENS JESSICA METAB OLIC PANEL sodium 139 mmol/ L 137-14 5 Not Available [facility] (Lab) [address] [place], [address], 08/27/2022 17:15:50 08/28/19 23 08/27/2022 COMPR EHENS JESSICA METAB OLIC PANEL potassium 4.1 mmol/ L 3.5-5. 1 Not Available [facility] (Lab) [address] [place], [address], 08/27/2022 17:15:50 08/28/19 23 08/27/2022 COMPR EHENS JESSICA METAB OLIC PANEL chloride 104 mmol/ L 98-107 Not Available [facility] (Lab) [address] [place], [address], 08/27/2022 17:15:50 08/28/19 23 08/27/2022 COMPR EHENS JESSICA METAB OLIC PANEL carbon dioxide 24 mmol/ L 22-30 Not Available [facility] (Lab) [address] [place], [address], 08/27/2022 17:15:50 08/28/19 23 08/27/2022 COMPR EHENS JESSICA METAB OLIC PANEL anion gap 15.1 mmol/ L 14-22 Not Available [facility] (Lab) [address] [place], [address], 08/27/2022 17:15:50 08/28/19 23 08/27/2022 COMPR EHENS JESSICA METAB OLIC PANEL glucose 84 mg/dL 70-99 Not Available [facility] (Lab) [address] [place], [address], 08/27/2022 17:15:50 08/28/19 23 08/27/2022 COMPR EHENS JESSICA METAB OLIC PANEL BUN 24 mg/dL 8-19 high Not Available [facility] (Lab) [address] [place], [address], 08/27/2022 17:15:50 08/28/19 23 08/27/2022 COMPR EHENS JESSICA METAB OLIC PANEL creatinine 0.77 mg/dL 0.66-1 .25 Not Available [facility] (Lab) [address] [place], [address], 08/27/2022 17:15:50 08/28/19 23 08/27/2022 COMPR EHENS JESSICA METAB OLIC PANEL GFR >60 Refer ence Range : Slade ge GFR Healt hy Adult : >60 [...] calcu lator is avail able on the [facility] websi te: [email or web address] :[email or web address] qi/gf r_cal culat or Not Available [facility] (Lab) [address] [place], [address], 08/27/2022 17:15:50 08/28/19 23 08/27/2022 COMPR EHENS JESSICA METAB OLIC PANEL alkaline phosphatase 59 U/L 38-126 Not Available [facility] (Lab) [address] [place], [address], 08/27/2022 17:15:50 08/28/19 23 08/27/2022 COMPR EHENS JESSICA METAB OLIC PANEL alanine aminotransfe rase 16 U/L 0-35 Not Available [facility] (Lab) [address] [place], [address], 08/27/2022 17:15:50 08/28/19 23 08/27/2022 COMPR EHENS JESSICA METAB OLIC PANEL aspartate aminotransfe rase 21 U/L 15-37 Not Available [facility] (Lab) [address] [place], [address], 08/27/2022 17:15:50 08/28/19 23 08/27/2022 COMPR EHENS JESSICA METAB OLIC PANEL bilirubin, total 0.60 mg/dL 0.20-1 .30 Not Available [facility] (Lab) [address] [place], [address], 08/27/2022 17:15:50 08/28/19 23 08/27/2022 COMPR EHENS JESSICA METAB OLIC PANEL calcium 9.6 mg/dL 8.4-10 .2 Not Available [facility] (Lab) [address] [place], [address], 08/27/2022 17:15:50 08/28/19 23 08/27/2022 COMPR EHENS JESSICA METAB OLIC PANEL total protein 7.1 g/dL 6.3-8. 2 Not Available [facility] (Lab) [address] [place], [address], 08/27/2022 17:15:50 08/28/19 23 08/27/2022 COMPR EHENS JESSICA METAB OLIC PANEL albumin 4.2 g/dL 3.0-4. 4 Not Available [facility] (Lab) [address] [place], [address], 08/27/2022 17:15:50 08/28/19 23 08/27/2022 COMPR EHENS JESSICA METAB OLIC PANEL globulin 2.9 g/dL 2.6-4. 2 Not Available [facility] (Lab) [address] [place], [address], 08/27/2022 17:15:50 08/28/19 23 08/27/2022 COMPR EHENS JESSICA METAB OLIC PANEL A/G ratio 1.4 ratio 1.0-2. 0 Not Available [facility] (Lab) [address] [place], [address], 08/27/2022 17:15:50 08/28/19 23 08/27/2022 LIPID PANEL cholesterol 222 mg/dL 140-19 9 high NIH FRANK NSUS RECOM MENDA TION FOR FRANCO STERO L: ADULT CHILD LOW RISK: <200 <170 NUSRATDE YELITZA : <200- 239 ----- HIGH RISK: >240 >200 Not Available [facility] (Lab) [address] [place], [address], 08/27/2022 17:15:54 08/28/19 23 08/27/2022 LIPID PANEL triglyceride s 183 mg/dL 0-150 high NIH FRANK NSUS REPOR T RECOM MENDA TION FOR TRIGL YCERI JOVANI: ADULT CHILD LOW RISK: <150 ----- BODER LINE: 150-1 99 ----- HIGH RISK: >200 ----- Not Available [facility] (Lab) [address] [place], [address], 08/27/2022 17:15:54 08/28/19 23 08/27/2022 LIPID PANEL HDL cholesterol 64 mg/dL 40- Not Available [facility] (Lab) [address] [place], [address], 08/27/2022 17:15:54 08/28/19 23 08/27/2022 LIPID PANEL [...] WILL NOT BE REPOR SHERI. Not Available [facility] (Lab) [address] [place], [address], 08/27/2022 17:15:54 02/19/20 23 02/18/2023 CBC/C OMPLE TE BLD COUNT W/DIF F white blood cells 6.4 x10'3 /uL 4.2-10 .8 Not Available [facility] (Lab) [address] [place], [address], 02/18/2023 13:13:53 02/19/20 23 02/18/2023 CBC/C OMPLE TE BLD COUNT W/DIF F red blood cells 4.62 x10'6 /uL 3.80-5 .20 Not Available [facility] (Lab) [address] [place], [address], 02/18/2023 13:13:53 02/19/20 23 02/18/2023 CBC/C OMPLE TE BLD COUNT W/DIF F hemoglobin 14.8 g/dL 12.0-1 5.6 Not Available [facility] (Lab) [address] [place], [address], 02/18/2023 13:13:53 02/19/20 23 02/18/2023 CBC/C OMPLE TE BLD COUNT W/DIF F hematocrit 45.0 % 35.7-4 5.7 Not Available [facility] (Lab) [address] [place], [address], 02/18/2023 13:13:53 02/19/20 23 02/18/2023 CBC/C OMPLE TE BLD COUNT W/DIF F mean red cell volume 97.4 fL 82.0-9 9.0 Not Available [facility] (Lab) [address] [place], [address], 02/18/2023 13:13:53 02/19/20 23 02/18/2023 CBC/C OMPLE TE BLD COUNT W/DIF F mean red cell hemoglobin 32.0 pg 27.0-3 3.0 Not Available [facility] (Lab) [address] [place], [address], 02/18/2023 13:13:53 02/19/20 23 02/18/2023 CBC/C OMPLE TE BLD COUNT W/DIF F mean RBC HGB concentratio n 32.9 g/dL 31.0-3 6.0 Not Available [facility] (Lab) [address] [place], [address], 02/18/2023 13:13:53 02/19/20 23 02/18/2023 CBC/C OMPLE TE BLD COUNT W/DIF F red cell distribution width 12.1 % 11.8-1 5.5 Not Available [facility] (Lab) [address] [place], [address], 02/18/2023 13:13:53 02/19/20 23 02/18/2023 CBC/C OMPLE TE BLD COUNT W/DIF F platelets 178 x10'3 /uL 150-40 0 Not Available [facility] (Lab) [address] [place], [address], 02/18/2023 13:13:53 02/19/20 23 02/18/2023 CBC/C OMPLE TE BLD COUNT W/DIF F mean platelet volume 9.8 fL 9.0-12 .4 Not Available [facility] (Lab) [address] [place], [address], 02/18/2023 13:13:53 02/19/20 23 02/18/2023 CBC/C OMPLE TE BLD COUNT W/DIF F neutrophils 68.6 % 39.0-7 2.0 Not Available [facility] (Lab) [address] [place], [address], 02/18/2023 13:13:53 02/19/20 23 02/18/2023 CBC/C OMPLE TE BLD COUNT W/DIF F lymphocytes 22.4 % 16.0-4 7.0 Not Available [facility] (Lab) [address] [place], [address], 02/18/2023 13:13:53 02/19/20 23 02/18/2023 CBC/C OMPLE TE BLD COUNT W/DIF F monocytes 6.1 % 5.0-12 .0 Not Available [facility] (Lab) [address] [place], [address], 02/18/2023 13:13:53 02/19/20 23 02/18/2023 CBC/C OMPLE TE BLD COUNT W/DIF F eosinophils 1.3 % 1.0-7. 0 Not Available [facility] (Lab) [address] [place], [address], 02/18/2023 13:13:53 02/19/20 23 02/18/2023 CBC/C OMPLE TE BLD COUNT W/DIF F basophils 0.8 % 0.0-2. 0 Not Available [facility] (Lab) [address] [place], [address], 02/18/2023 13:13:53 02/19/20 23 02/18/2023 CBC/C OMPLE TE BLD COUNT W/DIF F immature granulocytes 0.8 % 0.00-0 .50 high Not Available [facility] (Lab) [address] [place], [address], 02/18/2023 13:13:53 02/19/20 23 02/18/2023 CBC/C OMPLE TE BLD COUNT W/DIF F neutrophils, absolute count 4.38 x10'3 /uL 1.5-8. 0 Not Available [facility] (Lab) [address] [place], [address], 02/18/2023 13:13:53 02/19/20 23 02/18/2023 CBC/C OMPLE TE BLD COUNT W/DIF F lymphocytes, absolute count 1.43 x10'3 /uL 1.07-3 .43 Not Available [facility] (Lab) [address] [place], [address], 02/18/2023 13:13:53 02/19/20 23 02/18/2023 CBC/C OMPLE TE BLD COUNT W/DIF F monocytes, absolute count 0.39 x10'3 /uL 0.29-0 .99 Not Available [facility] (Lab) [address] [place], [address], 02/18/2023 13:13:53 02/19/20 23 02/18/2023 CBC/C OMPLE TE BLD COUNT W/DIF F eosinophils, absolute count 0.08 x10'3 /uL 0.02-0 .53 Not Available [facility] (Lab) [address] [place], [address], 02/18/2023 13:13:53 02/19/20 23 02/18/2023 CBC/C OMPLE TE BLD COUNT W/DIF F basophils, absolute count 0.05 x10'3 /uL 0.01-0 .08 Not Available [facility] (Lab) [address] [place], [address], 02/18/2023 13:13:53 02/19/20 23 02/18/2023 CBC/C OMPLE TE BLD COUNT W/DIF F immature granulocytes ,absolute 0.05 x10'3 /uL 0.00-0 .05 Not Available [facility] (Lab) [address] [place], [address], 02/18/2023 13:13:53 02/19/20 23 02/18/2023 CBC/C OMPLE TE BLD COUNT W/DIF F nucleated red blood cells 0.0 % -0 Not Available [facility] (Lab) [address] [place], [address], 02/18/2023 13:13:53 02/19/20 23 02/18/2023 CBC/C OMPLE TE BLD COUNT W/DIF F NRBC# 0.00 x10'3 /uL Not Available [facility] (Lab) [address] [place], [address], 02/18/2023 13:13:53 02/19/20 23 02/18/2023 COMPR EHENS JESSICA METAB OLIC PANEL sodium 139 mmol/ L 137-14 5 Not Available [facility] (Lab) [address] [place], [address], 02/18/2023 13:37:40 02/19/20 23 02/18/2023 COMPR EHENS JESSICA METAB OLIC PANEL potassium 4.2 mmol/ L 3.5-5. 1 Not Available [facility] (Lab) [address] [place], [address], 02/18/2023 13:37:40 02/19/20 23 02/18/2023 COMPR EHENS JESSICA METAB OLIC PANEL chloride 103 mmol/ L 98-107 Not Available [facility] (Lab) [address] [place], [address], 02/18/2023 13:37:40 02/19/20 23 02/18/2023 COMPR EHENS JESSICA METAB OLIC PANEL carbon dioxide 26 mmol/ L 22-30 Not Available [facility] (Lab) [address] [place], [address], 02/18/2023 13:37:40 02/19/20 23 02/18/2023 COMPR EHENS JESSICA METAB OLIC PANEL anion gap 14.2 mmol/ L 14-22 Not Available [facility] (Lab) [address] [place], [address], 02/18/2023 13:37:40 02/19/20 23 02/18/2023 COMPR EHENS JESSICA METAB OLIC PANEL glucose 90 mg/dL 70-99 Not Available [facility] (Lab) [address] [place], [address], 02/18/2023 13:37:40 02/19/20 23 02/18/2023 COMPR EHENS JESSICA METAB OLIC PANEL BUN 26 mg/dL 8-19 high Not Available [facility] (Lab) [address] [place], [address], 02/18/2023 13:37:40 02/19/20 23 02/18/2023 COMPR EHENS JESSICA METAB OLIC PANEL creatinine 0.76 mg/dL 0.66-1 .25 Not Available [facility] (Lab) [address] [place], [address], 02/18/2023 13:37:40 02/19/20 23 02/18/2023 COMPR EHENS JESSICA METAB OLIC PANEL GFR >60 Refer ence Range : Slade ge GFR Healt hy Adult : >60 [...] or ethni c subgr oups, such as Hisny nics. Outsi de the valid ated nanda [...] calcu lator is avail able on the [facility] websi te: https ://lincoln w.kid marlene.o rg/pr ofess ional s/kdo qi/gf r_cal culat or Not Available [facility] (Lab) [address] [place], [address], 02/18/2023 13:37:40 02/19/20 23 02/18/2023 COMPR EHENS JESSICA METAB OLIC PANEL alkaline phosphatase 53 U/L 38-126 Not Available [facility] (Lab) [address] [place], [address], 02/18/2023 13:37:40 02/19/20 23 02/18/2023 COMPR EHENS JESSICA METAB OLIC PANEL alanine aminotransfe rase 22 U/L 0-35 Not Available [facility] (Lab) [address] [place], [address], 02/18/2023 13:37:40 02/19/20 23 02/18/2023 COMPR EHENS JESSICA METAB OLIC PANEL aspartate aminotransfe rase 25 U/L 15-37 Not Available [facility] (Lab) [address] [place], [address], 02/18/2023 13:37:40 02/19/20 23 02/18/2023 COMPR EHENS JESSICA METAB OLIC PANEL bilirubin, total 0.90 mg/dL 0.20-1 .30 Not Available [facility] (Lab) [address] [place], [address], 02/18/2023 13:37:40 02/19/20 23 02/18/2023 COMPR EHENS JESSICA METAB OLIC PANEL calcium 9.6 mg/dL 8.4-10 .2 Not Available [facility] (Lab) [address] [place], [address], 02/18/2023 13:37:40 02/19/20 23 02/18/2023 COMPR EHENS JESSICA METAB OLIC PANEL total protein 6.8 g/dL 6.3-8. 2 Not Available [facility] (Lab) [address] [place], [address], 02/18/2023 13:37:40 02/19/20 23 02/18/2023 COMPR EHENS JESSICA METAB OLIC PANEL albumin 4.3 g/dL 3.0-4. 4 Not Available [facility] (Lab) [address] [place], [address], 02/18/2023 13:37:40 02/19/20 23 02/18/2023 COMPR EHENS JESSICA METAB OLIC PANEL globulin 2.5 g/dL 2.6-4. 2 low Not Available [facility] (Lab) [address] [place], [address], 02/18/2023 13:37:40 02/19/20 23 02/18/2023 COMPR EHENS JESSICA METAB OLIC PANEL A/G ratio 1.7 ratio 1.0-2. 0 Not Available [facility] (Lab) [address] [place], [address], 02/18/2023 13:37:40 02/19/2002/18/2023 LIPID PANEL cholesterol 175 mg/dL 140-19 9 NIH FRANK NSUS RECOM MENDA TION FOR FRANCO STERO L: ADULT CHILD LOW RISK: <200 <170 BORDE RLINE : <200- 239 ----- HIGH RISK: >240 >200 Not Available [facility] (Lab) [address] [place], [address], 02/18/2023 13:37:42 02/19/20 23 02/18/2023 LIPID PANEL triglyceride s 152 mg/dL 0-150 high NIH FRANK NSUS REPOR T RECOM MENDA TION FOR TRIGL YCERI JOVANI: ADULT CHILD LOW RISK: <150 ----- BODER LINE: 150-1 99 ----- HIGH RISK: >200 ----- Not Available [facility] (Lab) [address] [place], [address], 02/18/2023 13:37:42 02/19/2002/18/2023 LIPID PANEL HDL cholesterol 63 mg/dL 40- Not Available [facility] (Lab) [address] [place], [address], 02/18/2023 13:37:42 02/19/20 23 02/18/2023 LIPID PANEL [...] WILL NOT BE REPOR SHERI. Not Available [facility] (Lab) [address], [place], [address], 02/18/2023 13:37:42 03/26/19 23 03/26/2022 XR, knee [facility] [address], [place] [address] [phone] Patien t Name: ABHAY NGUYEN A Access ion #: [id number] Sex: F : 1940 3 Locati on: RAD Attend ing Physic fanta: KARLIE CLEMENS Orderi Physic fanta: KARLIE CLEMENS Exam Date: 03/26/19 9:28 AM Exam Name: [...] ic residu als Page 1 of 2 [facility] Patien t Name: ABHAY NGUYEN A Access ion #: [id number] Sex: F : 1940 3 Exam [...] MD (CT) (CT) Page 2 of 2 [id number] [facility] (Imaging) [address] [place], [address], 05/16/2022 06:18:12 02/20/2002/18/2023 XR, knee [facility] [address] [place] [address] Patien t Name: ABHAY NGUYEN TTE Access ion #: [id number] Sex: F : 1940 8 Dictat ed By: Ryan Mccray Attend ing Physic fanta: [facility]: KARLIE CLEMENS Exam Date: Exam [...] 2022 07:34: 09 AM Page 1 [email or web address] [facility] (Imaging) [address], [place], [address], 03/26/2023 15:08:47 03/27/19 25 03/20/2024 XR, knee, 3 view No observ ation record ed. [email or web address] Not Available 03/18 10:19:43 03/27/19 25 03/20/2024 XR, hip + pelvi s, unila teral , 2 or 3 view No observ ation record ed. [email or web address] Not Available 03/18 10:19:43 04/28/19 XR, knee No observ ation record ed. [email or web address] [facility] [address], [place], [address], 04/28/2024 15:20:16 Result Notes None recorded. Problems Name Problem SNOMED Code Status Onset Date Resolution Date Notes Provider Name and Address Organization Details Recorded Time Hammer toe 811324196 Active 2021 Not Available [facility] 3 01:28:55 Postoperat jessica care Active 2021 Not Available [facility] 3 01:28:55 Hyperchole sterolemia 65003135 Active 2021 Not Available [facility] 3 01:28:55 Heartburn 32786959 Active 2021 Not Available [facility] 3 01:28:55 Callosity on toe 468398304 Active 2021 Not Available [facility] 3 01:28:55 Gastroesop hageal reflux disease 077159749 Active 2017 Not Available [facility] 3 01:28:55 Pain in toe 704823543 Active 2021 Not Available [facility] 3 01:28:55 Pain of toe of left foot 5237745695616 08 Active 2021 Not Available [facility] 3 01:28:55 Pain in right foot 4258724422429 07 Active 2021 Not Available [facility] 3 01:28:55 Pain of toe of right foot 5297245209989 01 Active 2021 Not Available [facility] 3 01:28:55 Multiple joint pain 89465486 Active 2022 Not Available [facility] 3 01:28:55 Dyslipidem ia 047298933 Active 2020 Not Available [facility] 3 01:28:55 Osteoarthr itis 919371152 Active 2019 Not Available [facility] 3 01:28:55 Pain of left knee joint 3366931776908 07 Active 2021 Not Available [facility] 3 01:28:55 Pain of bilateral knee joints 3825038279401 04 Active 2022 Not Available [facility] 3 01:28:55 Essential hypertensi on 85313534 Active 2017 Not Available [facility] 3 01:28:55 Diarrhea 37661492 Active 2022 Not Available [facility] 3 01:28:55 Problem Notes None recorded. Procedures Surgical History Date Name Laterality Status Provider Name and Address Organization Details Recorded Time repair of umbilical hernia completed Not Available [facility] 05/16/2022 05:58:17 Rotator cuff surgery completed Not Available [facility] 05/16/2022 05:58:17 Removal of ovary(s) completed Not Available [facility] 05/16/2022 05:58:17 amputation of toe completed Not Available [facility] 05/16/2022 05:58:17 Imaging Results Imaging Date Name Status LastModified by [facility] Details LastModified Time 03/26/2022 XR, knee completed [id number] [facility] (Imaging) [address] [place], [address], 05/16/2022 06:18:12 02/18/2023 XR, knee completed [email or web address] [facility] (Imaging) [address] [place], [address], 03/26/2023 15:08:47 03/20/2024 XR, knee, 3 view completed Information not available 03/27/2024 10:19:43 03/20/2024 XR, hip + pelvis, unilateral , 2 or 3 view completed Information not available 03/27/2024 10:19:43 04/28/2024 XR, knee completed [email or web address] [facility] [address], [place], [address], 04/28/2024 15:20:16 Procedure Notes None recorded. Medical Equipment None Reported. Allergies Allergen ID Allergen Name Allergen Category Reaction Reaction Severity Criticality Documentation Date Start Date Code Code System Note Provider Name and Address Organization Details Recorded Time 03007 hydrocodo ne Not available other Not available Not available 05/16/2022 5489 RxNorm cryin g Not Available [facility] 3 06:17:40 86817 propoxyph tamara hydrochlo ride medicatio n other Not available Not available 05/16/2022 06200 RxNorm cryin g Not Available [facility] 3 06:17:41 Medications Name Sig Start Date Stop Date Status Note LastModified by Organization Details LastModified Time losartan 50 mg tablet TAKE 1 TABLET BY MOUTH EVERY DAY active Not Available Not Available No t Available latanopro st 0.005 % eye drops APPLY 1 DROP INTO BOTH EYES EVERY NIGHT AT BEDTIME active Not Available Not Available No t Available atorvasta tin 10 mg tablet TAKE 1 TABLET BY MOUTH EVERY DAY active Not Available Not Available No t Available metronida zole 500 mg tablet TAKE 1 [...] completed Not Available Not Available Not Available prednisol one acetate 1 % eye drops,chandu pension PLEASE SEE ATTACHED FOR DETAILED DIRECTIO NS active Not Available Not Available No t Available cephalexi n 500 mg capsule take [...] TAKE 1 CAPSULE BY MOUTH TWICE DAILY 04/28 completed Not Available Not Available Not Available ondansetr on 4 mg disintegr ating tablet DISSOLVE 1 T ON TONGUE Q 8 H 02/28 completed Not Available Not Available Not Available naproxen 500 mg tablet TAKE 1 TABLET BY MOUTH TWICE A DAY NEEDED 04/28 completed Not Available Not Available Not Available cholestyr amine (with sugar) 4 gram powder for susp in a packet PLEASE SEE ATTACHED FOR DETAILED DIRECTIO NS 08/27 completed Not Available Not Available Not Available omeprazol e 20 mg tablet,de layed release Take 1 tablet twice a day by oral route. 03/27 completed capsule Not Available Not Available Not Available Vitals Date Recorded Body mass index (BMI) Body height Pain severity - 0-10 verbal numeric rating [Score] - Reported Heart rate Body temperature Body weight Systolic blood pressure Diastolic blood pressure Provider Name and Address Organization Details Last Updated DateTime 3 26.3 kg/m2 157.48 cm 0 68 /min 96.3 [degF] 91976.3 g 126 mm[Hg] 60 mm[Hg] Not Available [facility] 3 06:03:51 Date Recorded Body mass index (BMI) Body height Heart rate Body temperature Body weight Systolic blood pressure Diastolic blood pressure Provider Name and Address Organization Details Last Updated DateTime 3 26.2 kg/m2 157.48 cm 78 /min 97.6 [degF] 55067.7 1 g 122 mm[Hg] 60 mm[Hg] Not Available [facility] 3 06:03:52 Date Recorded Body height Body mass index (BMI) Body weight Body temperature Heart rate Oxygen saturation Oxygen saturation in Arterial blood by Pulse oximetry Systolic blood pressure Diastolic blood pressure Provider Name and Address Organization Details Last Updated DateTime 3 157.48 cm 24.9 kg/m2 70240.5 6 g 97.8 [degF] 84 /min 96 % 96 % 124 mm[Hg] 68 mm[Hg] Sirisha Cuevas RN [facility] [employer] [facility] 3 11:22:17 Date Recorded Heart rate Systolic blood pressure Diastolic blood pressure Provider Name and Address Organization Details Last Updated DateTime 09/17/2022 86 /min 122 mm[Hg] 70 mm[Hg] RADHA Cook [employer] 09/17/2022 10:35:44 Date Recorded Body height Body mass index (BMI) Body weight Body temperature Heart rate Systolic blood pressure Diastolic blood pressure Provider Name and Address Organization Details Last Updated DateTime 3 157.48 cm 25.4 kg/m2 64777.3 4 g 97.7 [degF] 77 /min 122 mm[Hg] 60 mm[Hg] RADHA Cook [employer] 3 11:13:44 Date Recorded Body height Body mass index (BMI) Body weight Provider Name and Address Organization Details Last Updated DateTime 04/28/2024 157.48 cm 23.6 kg/m2 82327.42 g Sherry Phillips [employer] 04/28/2024 14:17:30 Social History Question Answer Notes LastModified by Organization Details LastModified Time Tobacco Smoking Status Never Smoker Not Available [facility] 05/16/2022 05:57:03 Do You Have An Advance Directive? Yes [id number] Information not available 05/16/2022 What Is Your Level Of Alcohol Consumption? None [id number].0301 [id number] Information not available 05/16/2022 Are You Blind Or Do You Have Difficulty Seeing? No MIGRATION.0301 [id number] Information not available 05/16/2022 What Is Your Level Of Caffeine Consumption? Moderate MIGRATION.0301 [id number] Information not available 05/16/2022 How Much Tobacco Do You Chew? None MIGRATION.0301 [id number] Information not available 05/16/2022 In The 14 Days Before Symptom Onset, Have You Had Close Contact With A Laboratory-confi rmed COVID-19 While That Case Was Ill? No MIGRATION.030 [id number] Information not available 05/16/2022 In The 14 Days Before Symptom Onset, Have You Had Close Contact With A Person Who Is Under Investigation For COVID-19 While That Person Was Ill? No MIGRATION.030 [id number] Information not available 05/16/2022 Are You Deaf Or Do You Have Serious Difficulty Hearing? No MIGRATION.0301 [id number] Information not available 05/16/2022 What Type Of Diet Are You Following? REGULAR MIGRATION.030 [id number] Information not available 05/16/2022 Which Illicit Or Recreational Drugs Have You Used? None MIGRATION.030 [id number] Information not available 05/16/2022 Do You Or Have You Ever Used E-cigarettes Or Vape? Never Used Electronic Cigarettes MIGRATION.030 [id number] Information not available 05/16/2022 What Is The Highest Grade Or Level Of School You Have Completed Or The Highest Degree You Have Received? [id number] MIGRATION.030 [id number] Information not available 05/16/2022 What Is Your Occupation? Retired MIGRATION.030 [id number] Information not available 05/16/2022 Have There Been Any Changes To Your Family Or Social Situation? No MIGRATION.0301 [id number] Information not available 05/16/2022 What Is The Fluoride Status Of Your Home? Unknown MIGRATION.030 [id number] Information not available 05/16/2022 Are There Any Guns Present In Your Home? No MIGRATION.0301 [id number] Information not available 05/16/2022 Do You Use Insect Repellent Routinely? No MIGRATION.0301 [id number] Information not available 05/16/2022 Where Do You Live? [place] MIGRATION.030 [id number] Information not available 05/16/2022 Do You Have A Medical Power Of Software Project Lead? Yes MIGRATION.0301 [id number] Information not available 05/16/2022 What Was The Date Of Your Most Recent Tobacco Screening? 02/18/2023 [email or web address] Information not available 02/18/2023 Do You Have Any Pets? Yes MIGRATION.0301 [id number] Information not available 05/16/2022 What Is Your Relationship Status? MIGRATION.030 [id number] Information not available 05/16/2022 Do You Use Your Seat Belt Or Car Seat Routinely? Yes MIGRATION.0301 [id number] Information not available 05/16/2022 Do You Have Smoke And Carbon Monoxide Detectors In Your Home? Yes MIGRATION.0301 [id number] Information not available 05/16/2022 Are You Passively Exposed To Smoke? No MIGRATION.0301 [id number] Information not available 05/16/2022 Do You Or Have You Ever Used Smokeless Tobacco? Never Used Smokeless Tobacco MIGRATION.0301 [id number] Information not available 05/16/2022 Are There Any Smokers In Your House? No MIGRATION.0301 [id number] Information not available 05/16/2022 How Much Tobacco Do You Smoke? No MIGRATION.0301 [id number] Information not available 05/16/2022 What Types Of Sporting Activities Do You Participate In? None MIGRATION.0301 [id number] Information not available 05/16/2022 Do You Feel Stressed (tense, Restless, Nervous, Or Anxious, Or Unable To Sleep At Night)? [id number] MIGRATION.0301 [id number] Information not available 05/16/2022 Do You Use Any Illicit Or Recreational Drugs? No MIGRATION.0301 288087 Information not available 05/16/2022 Do You Use Sunscreen Routinely? No MIGRATION.0301 905408 Information not available 05/16/2022 Has Tobacco Cessation Counseling Been Provided? No Not Needed-n ever Smoked MIGRATION.0301 764546 Information not available 05/16/2022 How Many Years Have You Smoked Tobacco? 0 MIGRATION.0301 893440 Information not available 05/16/2022 Have You Recently Traveled Abroad? No MIGRATION.0301 361232 Information not available 05/16/2022 Do You Have Any Dietary Restrictions? No MIGRATION.0301 550426 Information not available 05/16/2022 Do You Or Have You Ever Used Any Other Forms Of Tobacco Or Nicotine? No MIGRATION.0301 641391 Information not available 05/16/2022 Sex: Female Functional Status Question Answer Note LastModified by Organizat ion Details LastModified Time Do you have difficulty walking or climbing stairs? No MIGRATION.86559 17431 Information not available 05/16/2022 Do you have transportation difficulties? No MIGRATION.64619 03705 Information not available 05/16/2022 Are you able to walk? YESWOREST sometimes uses a cane MIGRATION.95259 91218 Information not available 05/16/2022 Do you have difficulty doing errands alone? No MIGRATION.93815 75150 Information not available 05/16/2022 Are you able to care for yourself? Yes MIGRATION.44288 44974 Information not available 05/16/2022 Do you have difficulty dressing or bathing? No MIGRATION.96488 21170 Information not available 05/16/2022 What is your exercise level? Occasional MIGRATION.22541 89572 Information not available 05/16/2022 Mental Status Question Answer Note LastModified by Organizat ion Details LastModified Time Do you have difficulty concentrating, remembering or making decisions? No MIGRATION.[id number] 6 Information not available 05/16/2022 Family History Relationship Description Onset Age of this Age Resolved Age Notes LastModified by Organization Details LastModified Time Son Pancreatitis MIGRATION.0 30 [id number] Not available 05/16/2022 05:58:23 Son Diabetes mellitus MIGRATION.454 [id number] Not available 05/16/2022 05:58:23 Medical History Condition Response BLINDNESS N NERVE DISEASE N RHEUMATIC FEVER N BLADDER PROBLEMS N KIDNEY STONES N MRSA N OTHER # 1 N POLIO N LUNG DISEASE/DISORDER N HISTORY OF DRUG ABUSE N RADIATION / CHEMOTHERAPY N COPD N Other # 2 N BLOOD DISEASES [...] GLAUCOMA N FOOT PROBLEM N DIVERTICULITIS N CHICKENPOX N SLEEP APNEA N INFECTIOUS DISEASE N HEART ARRHYTHMIA N PROSTATE N INSOMNIA N HIGH CHOLESTEROL / HYPERLIPIDEMIA Y HYPERTHYROIDISM N EYE PROBLEMS N EDEMA N CHRONIC PAIN SYNDROME N HYPOTHYROIDISM N CAROTID BLOCKAGE N CONSTIPATION N BACK / NECK PROBLEMS N HAVE YOU BEEN HOSPITALIZED OR SEEN IN [facility] IN THE PAST YEAR ? N [...] SNOMED-CT Code Diagnosis ICD10 Code Diagnosis Note [id number] [facility] Internal [facility] [address] [place] , [address] [address] 10/03/2020 00:00:00 10/03/2020 21:31:25 [id number] [facility] [address] [place] [address] 03/27/2021 00:00:00 03/27/2021 21:26:13 [id number] [facility] [address] [place] [address] 05/01/2021 00:00:00 05/14/2021 11:35:08 [id number] [facility] [place] [address], [address] [place] [address] 07/03/2021 00:00:00 07/13/2021 13:30:42 [id number] [facility] [place] [address], [address] [place] [address] 07/17/2021 00:00:00 07/18/2021 10:07:38 [id number] [facility] [address] [place] [address] 07/18/2021 00:00:00 07/18/2021 22:41:09 [id number] [facility] [place] [address], [facility] 4 [place] [address] 08/07/2021 00:00:00 08/07/2021 14:32:49 [id number] [facility] [place] [address], [facility] 4 [place] [address] 08/17/2021 00:00:00 08/17/2021 10:16:36 [id number] [facility] [place] [address], [facility] 4 [place] [address] 09/11/2021 00:00:00 09/11/2021 12:16:00 [id number] [facility] [address] [facility] 15 [place] [address] 11/21/2021 00:00:00 12/09/2021 18:33:57 [id number] [facility] [place] [address], [address] [place] [address] 12/11/2021 00:00:00 12/11/2021 11:13:10 [id number] [facility] Internal Med [facility] [address] [place], [place] [address]., [address] [address] 03/20/2022 00:00:00 03/20/2022 21:55:40 [id number] [facility] Internal [facility] [address] [place], [place] [address]., [address] [address] 04/24/2022 00:00:00 04/24/2022 22:45:30 [id number] Jazmyn Clemens MD [facility] Internal Med [facility] [address] [place], [place] [address]., [address] [address] 08/27/2022 10:53:46 08/27/2022 12:16:13 Essential hypertension [id number] I10 Dyslipidemia 859903207 E 78.5 Osteoarthritis [id number] M19.90 [id number] Jazmyn Clemens MD [facility] Internal Med [facility] [address] [place] [address]., [address] [address] 02/18/2023 10:54:54 02/18/2023 12:14:34 Pain of bilateral knee joints [id number] 50543 M25.561 M25.562 Essential hypertension 75545383 I10 Dyslipidemia 507879404 E 78.5 Osteoarthritis 732072238 M19.90 [id number] Tennille Gonzalez NP [facility] [place] [address] [place] [address] 04/28/2024 14:15:33 04/28/2024 14:54:12 Pain of bilateral knee joints 8165638377 27017 M25.561 M25.562 Health Concerns Section Related Observation LastModified by Organization Detai ls LastModified Time None Recorded Concern Status LastModified by Organization Details LastModified Time None Recorded Advance Directives Directive Y: Payers Encounter Date Sequence Insurance Name Policy Number Policy Andres Covered Member ID Andres Member ID Guarantor Name 08/27/2022 1 [facility] (MEDICARE REPLACEMENT/A DVANTAGE - HMO) [id number] Charla Nguyen [id number] Charla Morales Nguyen 02/18/2023 1 [facility] (MEDICARE REPLACEMENT/A DVANTAGE - HMO) [id number] Charla Nguyen [id number] Charla Nguyen 04/28/2024 1 [facility] (MEDICARE REPLACEMENT/A DVANTAGE - HMO) [id number] Charla Nguyen [id number] Charla Nguyen Notes Date Note Type Note Provider Name and Address Organization Details Recorded Time 3 text/html Hypertension no headache no dizzinessOsteoarthritis stableDyslipidemia tries to follow a low-fat dietGERD no nausea no vomit Jazmyn Clemens MD [address], [place], [address], trippiece 09/01/2022 21:01:38 3 text/html Hypertension no headache no dizzinessOsteoarthritis pain both kneesDyslipidemia tries to follow a low-fat dietGERD no nausea no vomit Jazmyn Clemens MD [address], [place], [address], trippiece 02/23/2023 12:04:32 OBGyn Episode No OBEpisode recorded.
--- OUTSIDE RECORDS SUMMARY | 2024-07-06 14:11 | XMS_ITS | Clinical Summary ---
Author Organization [facility] Address [address] [place] [address] Care Team Providers Care Key Ringer Name Role Phone Darrell Clemens MD Primary Care Provider [phone] Allergies No known active allergies Medications lisinopril [...] 88 08/06/2018 12:47 PM CDT Temperature 36.6 C (97.8 F) 08/06/2018 12:47 PM CDT Respiratory Rate 18 08/06/2018 12:47 PM CDT [...] Td Vaccines ( 1 - Tdap) 1961 Pneumococcal Vaccine: 50+ Ye ars (1 of 1 - PCV) 1992 Zoster Vaccines (1 of 2) 1992 Annual Medicare Wellness Visit 2007 Dexa Scan (General) 2007 RSV Immunization or 60+ Years (1 - 1-dose 75+ series) 2017 COVID-19 Vaccine ( - 2023-2 5 season) 2023 Meningococcal B Vaccine Aged Out No l onger eligible based on patient's age to complete this topic Meningococcal Vaccine Aged Out No vladimir krystina eligible based on patient's age to complete this topic RSV Immunizations Under 20 Months Aged Out No longer eligible based on patient's age to complete this topic Insurance MEDICARE Care Teams Key Ringer Relationship Specialty Start Date End Date Darrell Clemens MD [address] [place] [address] PCP - General INTERNAL MEDICINE 07/18/18
--- OUTSIDE RECORDS SUMMARY | 2024-07-06 14:11 | XMS_ITS | CONTINUITY OF CARE DOCUMENT ---
Author Name j luis dietz Address Unknown Organization [facility] Address [address] [place] [address] Phone [phone] Care Team Providers Care Projects Manager Name Role Phone Timothy Golden MD Unavailable [phone] JAZMYN GRIDER MD Unavailable JAZMYN GRIDER MD [...] In-person encounter Office Visit Timothy Golden MD [facility] Edema - In-person encounter Office Visit KAYLYN KENNEY MD [facility] - In-person encounter Office Visit KAYLYN KENNEY MD [facility] - In-person encounter Office Visit KAYLYN KENNEY MD [facility] - In-person encounter Office Visit KAYLYN KENNEY MD [facility] - In-person encounter Office Visit KAYLYN KENNEY MD [facility] - In-person encounter Office Visit KAYLYN KENNEY MD [facility] - In-person encounter Office Visit KAYLYN KENNEY MD [facility] - In-person encounter Office Visit KAYLYN KENNEY MD [facility] - In-person encounter Office Visit KAYLYN KENNEY MD [facility] - In-person encounter Office Visit KAYLYN KENNEY MD [facility] - In-person encounter Office Visit KAYLYN KENNEY MD [facility] - In-person encounter Office Visit KAYLYN KENNEY MD [facility] - In-person encounter Office Visit KAYLYN KENNEY MD [facility] - In-person encounter Office Visit KAYLYN KENNEY MD [facility] - In-person encounter Office Visit KAYLYN KENNEY MD [facility] - In-person encounter Office Visit KAYLYN KENNEY MD [facility] - In-person encounter Office Visit KAYLYN KENNEY MD [facility] - In-person encounter Office Visit Jair Padilla [facility] - In-person encounter Office Visit KAYLYN KENNEY MD [facility] - In-person encounter Office Visit KAYLYN KENNEY MD [facility] - In-person encounter Office Visit KAYLYN KENNEY MD [facility] - In-person encounter Office Visit KAYLYN KENNEY MD [facility] CardiomegalyMitral valve disordersTricuspid valve disorders, specified as nonrheumaticOther and unspecified ovarian cyst - In-person encounter Office Visit KAYLYN KENNEY MD [facility] HTN essential - In-person encounter Office Visit Jair Padilla [facility] - In-person encounter Office Visit Kamaljitsamlili Randy [facility] - In-person encounter Office Visit Jair Padilla [facility] - In-person encounter Office Visit Jair Padilla [facility] - In-person encounter Office Visit Jair Padilla [facility] - In-person encounter Office Visit Jair Padilla [facility] - In-person encounter Office Visit Jair Padilla [facility] - In-person encounter Office Visit Jair Padilla [facility] - In-person encounter Office Visit Jair Padilla [facility] - In-person encounter Office Visit Jair Padilla [facility] - In-person encounter Office Visit Jair Padilla [facility] - In-person encounter Office Visit Jair Padilla [facility] - In-person encounter Office Visit Jair Padilla [facility] - In-person encounter Office Visit Jair Padilla [facility] - In-person encounter Office Visit Jair Padilla [facility] - In-person encounter Office Visit Kamaljitmalvin Padilla [facility] VITAL SIGNS Date Observation Value Provider [...] DELAYED RELEASE active take one tablet daily [facility] TRAMADOL HCL 50 MG ORAL TABLET active take one tablet three times daily as needed [facility] TYLENOL EXTRA STRENGTH 500 MG ORAL TABLET [...] Payer name Policy type / Coverage type Holt red democrat ID AARP MEDICARE ADVANTAGE ([facility] COMPLETE PPO) Other [id number] ADVANCE DIRECTIVES Name Date DISCUSSED - NO [...]
--- OUTSIDE RECORDS SUMMARY | 2024-07-06 14:11 | XMS_ITS | Clinical Summary ---
Author Organization [facility] Address [address] [place] [address] Phone Care Team Providers Care Nibbler Operator Name Role Phone Erlin Jimenez MD Primary Care Provider [phone] Allergies Active Allergy Reactions Criticality Noted Date Comments Codeine Other (see Comments) 03/02/2024 CRYING Medications atorvastatin (LIPITOR) 10 MG Tablet Take 10 mg by mouth daily. Active losartan (COZAAR) 50 MG Tablet Take 50 mg by mouth daily. Active naproxen (NAPROSYN) 500 MG Tablet Take 500 mg by mouth 2 times daily (with meals). Active Encounters Date Type Department Care Team Description 06/29/2024 10:52 AM CDT [facility] [place] [address] Alberto Harris MD 06/29/2024 10:45 AM CDT - 06/29/2024 11:05 AM CDT [facility] [place] [address] Antonette Edmonds MD PhD CATARACT EXTRACTION WITH INTRAOCULAR LENS PLACEMENT, RIGHT EYE 06/29/2024 9:23 AM CDT - 06/29/2024 11:58 AM CDT Hospital Encounter [facility] Preop/Pacu II [address] [place] [address] Antonette Edmonds MD PhD Provider, Anesthesiologist Discharge Disposition: Discharged to home or Selfcare 06/29/2024 Travel 06/17/2024 Travel from Last 3 Months Family History [...] on file 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 Gender Identity Not on file Sexual Orientation Not on file Last Filed Vital Signs Vital Sign Reading Time Taken Comments Blood Pressure 171/75 06/29/2024 11:49 AM CDT Pulse 71 06/29/2024 11:49 AM CDT Temperature 36 C (96.8 F) 06/29/2024 11:49 AM CDT Respiratory Rate 16 06/29/2024 11:49 AM CDT Oxygen Saturation 99% 06/29/2024 11:49 AM CDT Inhaled Oxygen Concentration - - Weight 59.4 kg (131 lb) 06/29/2024 9:44 AM CDT Height 157.5 cm (5' 2 ) 06/29/2024 9:44 AM CDT Body Mass Index 23.96 06/29/2024 9:44 AM CDT Plan of Treatment Not on file Medical Devices Implanted Type Area Bottom Pounder Cement Shoes Device Identifier Shelf Expiration Date Model / Serial / Lot Left Lens Implanted:Qty: 1 on 03/16/2024 by Antonette Edmonds MD PhD at [facility] Left: Eye [employer] 12/24/2025 DCB0 0 / DCB00 / [id number] Acrysof Iol Implanted:Qty: 1 on 06/29/2024 by [facility] Right: Eye [employer] 07/15/2028 MA60AC / [id number] / [id number] Procedures Procedure Name Priority Date/Time Associated Diagnosis Comments SUBTOT REMV VITREOUS,MECH VIRECTOMY 06/29/2024 10:42 AM CDT VISUALLY SIGNIFICANT CATARACT, RIGHT EYE Special Needs 5'2 131LBS LEFT EYE DONE 2023 PART REMV VITREOUS,ANT APPRCH 06/29/2024 10:42 AM CDT VISUALLY SIGNIFICANT CATARACT, RIGHT EYE Special Needs 5'2 131LBS LEFT EYE DONE 2023 EXTCAP RMVL INSERT INTRAOC PROSTH W/ECP 06/29/2024 10:42 AM CDT VISUALLY SIGNIFICANT CATARACT, RIGHT EYE Special Needs 5'2 131LBS LEFT EYE DONE 2023 EXTCAP INSERT INTROC PROSTH W/ECP 06/29/2024 10:42 AM CDT VISUALLY SIGNIFICANT CATARACT, RIGHT EYE Special Needs 5'2 131LBS LEFT EYE DONE 2023 DC XCAPSL CTRC RMVL INSJ IO LENS PROSTH W/O ECP 06/29/2024 10:42 AM CDT VISUALLY SIGNIFICANT CATARACT, RIGHT EYE Special Needs 5'2 131LBS LEFT EYE DONE 2023 REMV CATARACT INTRACAP,INSERT LENS 06/29/2024 10:42 AM CDT VISUALLY SIGNIFICANT CATARACT, RIGHT EYE Special Needs 5'2 131LBS LEFT EYE DONE 2023 DC XCAPSL CTRC RMVL INSJ IO LENS PROSTH CPLX WO ECP 06/29/2024 10:42 AM CDT VISUALLY SIGNIFICANT CATARACT, RIGHT EYE Special Needs 5'2 131LBS LEFT EYE DONE 2023 from Last 3 Months Insurance Care Teams Nibbler Operator Relationship Specialty Start Date End Date Erlin Jimenez MD [facility] [place] [address] PCP - General Milk Pasteurizer 06/29/24
[2024-07-06 14:17] LABS: LDL Cholesterol Direct 67 mg/dL
[2024-07-06 14:25] LABS: Add Urine Microscopic? YES; Appearance Urine Clear (Clear); Bacteria Urine None Seen /hpf; Bilirubin Urine Negative (Negative); Blood Urine Negative (Negative); Color Urine Yellow (Yellow); Glucose Urine UA Negative (Negative); Ketones Urine Negative (Negative); Leukocyte Esterase Ur 1+ LEU/UL (Negative); Mucus Urine Present /lpf; Nitrate Urine Negative (Negative); Non Pathogenic Casts 0-2; Protein Urine Negative (Negative); RBC Urine 0-2 /hpf (0-2); Specific Grav Ur 1.021 (1.001-1.035); Squamous Epithelial Cell Urine None Seen /hpf (Few); Urobilinogen Urine 0.2 mg/dL (<2.0); WBC Urine 0-5 /hpf (0-3)
== END 2024-07-06 12:47 | disposition home or self-care (01) ==
LOC: ANHLAB 12:48
PROVIDERS: PCP Internal Medicine; Visit Provider Nurse Practitioner
DX: E78.5 Hyperlipidemia, unspecified (principal); M06.9 Rheumatoid arthritis, unspecified; I10 Essential (primary) hypertension
CPT/HCPCS: 36415; 80053; 80061; 81001; 84443; 85025; 87086

== ENCOUNTER 2024-11-27 11:50 | Outpatient (CLI) | payer MEDICARE, SELFPAY ==
--- NOTE | ~2024-11-27 | MMUS_ITS ---
EXAMINATION: US breast BI limited, MM diagnostic sergio BI w briseyda INDICATION: 84-year old female; evaluation of palpable lump in the left breast which she has had for about 2 weeks. COMPARISON: None available TECHNIQUE: Digital breast tomosynthesis True lateral and spot compression of the BILATERAL breast were obtained with computer-aided detection to assist in interpretation of the study. A radiopaque skin marker identifies the location of the left breast lump. FINDINGS: There are scattered areas of fibroglandular density. A high density mass with ill-defined margins that persists on spot compression views in the retroareolar anterior depth correlates to the radiopaque skin marker. There is associated thickening of the periareolar skin and retraction of the left nipple. There is a focal asymmetry seen in the retroareolar at middle depth within the right breast. Patient refused any additional mammographic imaging but will allow ultrasound evaluation of the area. No other suspicious masses, calcifications or areas of architectural distortion seen in the rest the breasts. BILATERAL BREAST ULTRASOUND FINDINGS: Targeted evaluation of the subareolar region on the left side and central portion of the right breast were completed. Left breast: At 12:00 subareolar location corresponding to the palpable lump felt by the patient, there is an heterogeneous hypoechoic mass with florid internal vascularity that measure 2.2 x 2.0 x 1.8 cm. The mass abuts the base of the left nipple. Evaluation of the left axilla showed normal appearing lymph nodes. Right breast: No suspicious solid or cystic masses seen. IMPRESSION: 1. Suspicious left breast heterogeneous mass at 12:00 subareolar location that correlates to the palpable lump. Recommend biopsy. 2. Probably benign right breast focal asymmetry with no sonographic correlate. Patient would not allow additional mammographic evaluation of this lesion at this time. Recommend short-term follow-up. RECOMMENDATION: Ultrasound-guided core biopsy of left breast mass 12:00 subareolar location. 6 month follow-up diagnostic right mammography. BI-RADS 4, SUSPICIOUS Reviewed, dictated and finalized at location B. IMPRESSION: 1. Suspicious left breast heterogeneous mass at 12:00 subareolar location that correlates to the palpable lump. Recommend biopsy. 2. Probably benign right breast focal asymmetry with no sonographic correlate. Patient would not allow additional mammographic evaluation of this lesion at t his time. Recommend short-term follow-up. RECOMMENDATION: Ultrasound-guided core biopsy of left breast mass 12:00 subareolar location. 6 month follow-up diagnostic right mammography. BI-RADS 4, SUSPICIOUS
== END 2024-11-27 11:51 | disposition home or self-care (01) ==
LOC: ANHFOHIMG 11:52
PROVIDERS: PCP Nurse Practitioner; Visit Provider Nurse Practitioner
DX: N63.20 Unspecified lump in the left breast, unspecified quadrant (principal); R92.8 Other abnormal and inconclusive findings on diagnostic imaging of breast
CPT/HCPCS: 76642; 77062; 77066; G0279

== ENCOUNTER 2024-12-26 11:54 | Emergency (ER) | payer MEDICARE, SELFPAY ==
--- OUTSIDE RECORDS SUMMARY | 2002-10-25 19:00 | XMS_ITS | Continuity of Care Document ---
Author Organization [facility] Address [id number] [place] [address] [place] [address] Phone Care Team Providers Care Agency Service Coordinator Name Role Phone [facility] Unavailable Unavail able Dmitriy Wilson Unavailable Unavailable Advance Directives Directive Yes / No Effective Date File Name No Information Encounters Encounter Description Practice Location Reason(s) For Visit Diagnoses Date Provider Providers Copied on Encounter [facility], [address], [place], [place], [id number], [place] tel:[phone] [facility] No Information [facility] [address] [facility], [address], [place], [place], [id number] , [place]. tel:[phone] Consulting Provider: Dmitriy Wilson, [address], [place], [address]. tel:[phone] Family History Family Member Type Diagnosis Age At Onset No Information Payers Payer name Insurance type Covered green party ID Authoriza tion(s) No Information Social History Type Description Quantity Date Captured Comments Sex Female Smoking Status No Information Chief Complaint And Reason For Visit No Information Reason For Referral Reason For Referral No Information History Of Present Illness Encounter Date Complaint History Of Prese nt Illness No Information Functional Status Date Functional Assessmen t No Information Instructions Date Instruction Additional Infor mation No Information Assessments Type Assessment Date No Information Patient Care Teams Name Effective Dates (start - stop) Status Members No Information
--- OUTSIDE RECORDS SUMMARY | 2024-12-26 11:56 | XMS_ITS | Clinical Summary ---
Author Organization [facility] Address [address] [place] [address] Phone Care Team Providers Care Ammonia Solution Preparer Name Role Phone Erlin Jimenez MD Primary Care Provider [phone] Allergies Active Allergy Reactions Criticality Noted Date Comments Codeine Other (see Comments) 03/02/2024 CRYING Medications atorvastatin (LIPITOR) 10 MG Tablet Take 10 mg by mouth daily. Active losartan (COZAAR) 50 MG Tablet Take 50 mg by mouth daily. Active naproxen (NAPROSYN) 500 MG Tablet Take 500 mg by mouth 2 times daily (with meals). 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 Gender Identity Not on file Sexual Orientation [...] 9:44 AM CDT Height 157.5 cm (5' 2) 06/29/2024 9:44 AM CDT Body Mass Index 23.96 06/29/2024 9:44 AM CDT Plan of Treatment Not on file Medical Devices Implanted Type Area Factory Manager Device Identifier Shelf Expiration Date Model / Serial / Lot Left Lens Implanted:Qty: 1 on 03/16/2024 by Antonette Edmonds MD PhD at [facility] Left: Eye [employer] 12/24/2025 DCB0 0 / DCB00 / [id number] Acrysof Iol Implanted:Qty: 1 on 06/29/2024 by Antonette Edmonds MD PhD at [facility] Right: Eye [employer] 07/15/2028 MA60AC / [id number] / [id number] Insurance MEDICARE C [facility] Care Teams Ammonia Solution Preparer Relationship Specialty Start Date End Date Erlin Jimenez MD [facility] [place] [address] PCP - General [employer] Senior Officer 06/29/24
--- OUTSIDE RECORDS SUMMARY | 2024-12-26 11:57 | XMS_ITS | Data Portability ---
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 Role Phone JAZMYN CLEMENS Primary Care Provider JAZMYN CLEMENS Referring Provider Assessment Encounter Date Assessment Date Assessment LastModified by Organization Details LastModified Time 08/27/2022 08/27/2022 Continue current therapy refuses any cancer screenings at this time specifically mammogram should blood pressure check in 3 weeks will see me in 6 months [email or web address] Not available 09/01/2022 21:01:15 02/18/2023 02/18/2023 [facility] blood work refuses any breast cancer or colon cancer screening follow-up 4 months [email or web address] Not available 02/23/2023 12:03:57 04/28/2024 04/28/2024 83-year-old [...] Lab CMP, serum or plasma [address] (Lab), [address] [place], [address], 3 17:28:51 lipid panel, serum [address] (Lab), [address] [place], [address], 3 17:28:51 CBC w/ auto diff [address] (Lab), [address] [place], [address], 3 17:28:51 CBC w/ auto diff 2022 023 [facility] (Lab), [address] [place], [address], 3 16:47:17 lipid panel, serum 2022 023 [facility] (Lab), [address] [place], [address], 3 17:15:54 CMP, serum or plasma 2022 023 [facility] (Lab), [address] [place], [address], 3 17:15:50 Referral orthopedic surgeon referral 2022 023 Sivakumar Jaime MD, [address], [facility], [place], [address], 4 19:04:54 Procedures None recorded. Surgeries None recorded. Imaging XR, knee 2024 025 [email or web address] [facility], [address] [facility], [address], [place], [address], 5 10:06:55 XR, knee 2022 023 [facility] ([facility] Call Sched[facility]), [address] [place], [address], 3 10:14:42 Medication Orders losartan 50 mg tablet 2022 023 [id number] [facility] [address] [place], [address], 3 13:49:59 Patient TargetsNo targets recorded. Patient [...] 140 mmol/ L 137-14 5 Not Available [facility] (Lab) [address] [place], [address], 03/20/2022 12:43:23 03/20/19 23 03/20/2022 COMPR EHENS JESSICA METAB OLIC PANEL potassium 4.1 mmol/ L 3.5-5. 1 Not Available [facility] (Lab) [address] [facility] [place], [address], 03/20/2022 12:43:23 03/20/19 23 03/20/2022 COMPR EHENS JESSICA METAB OLIC PANEL chloride 107 mmol/ L 98-107 Not Available [facility] (Lab) [address] [place], [address], 03/20/2022 12:43:23 03/20/19 23 03/20/2022 COMPR EHENS JESSICA METAB OLIC PANEL carbon dioxide 24 mmol/ L 22-30 Not Available [facility] (Lab) [address] [place], [address], 03/20/2022 12:43:23 03/20/19 23 03/20/2022 COMPR EHENS JESSICA METAB OLIC PANEL anion gap 13.1 mmol/ L 14-22 low Not Available [facility] (Lab) [address] [place], [address], 03/20/2022 12:43:23 03/20/19 23 03/20/2022 COMPR EHENS JESSICA METAB OLIC PANEL glucose 90 mg/dL 70-99 Not Available [facility] (Lab) [address] [place], [address], 03/20/2022 12:43:23 03/20/19 23 03/20/2022 COMPR EHENS JESSICA METAB OLIC PANEL BUN 22 mg/dL 8-19 high Not Available [facility] (Lab) [address] [place], [address], 03/20/2022 12:43:23 03/20/19 23 03/20/2022 COMPR EHENS JESSICA METAB OLIC PANEL creatinine 0.77 mg/dL 0.66-1 .25 Not Available [facility] (Lab) [address] [place], [address], 03/20/2022 12:43:23 03/20/19 23 03/20/2022 COMPR EHENS JESSICA METAB OLIC PANEL GFR >60 Refer ence Range : [place] GFR Healt hy Adult : >60 [...] calcu lator is avail able on the [facility] websi te: [email or web address] :[email or web address] rg/pr ofess ional s/kdo qi/gf r_cal culat or Not Available [facility] (Lab) [address] [place], [address], 03/20/2022 12:43:23 03/20/1903/20/2022 COMPR EHENS JESSICA METAB OLIC PANEL alkaline phosphatase 61 U/L 38-126 Not Available [facility] (Lab) [address] [place], [address], 03/20/2022 12:43:23 03/20/19 23 03/20/2022 COMPR EHENS JESSICA METAB OLIC PANEL alanine aminotransfe rase 17 U/L 0-35 Not Available [facility] (Lab) [address] [place], [address], 03/20/2022 12:43:23 03/20/19 23 03/20/2022 COMPR EHENS JESSICA METAB OLIC PANEL aspartate aminotransfe rase 19 U/L 15-37 Not Available [facility] (Lab) [address] [place], [address], 03/20/2022 12:43:23 03/20/1903/20/2022 COMPR EHENS JESSICA METAB OLIC PANEL bilirubin, total 0.60 mg/dL 0.20-1 .30 Not Available [facility] (Lab) [address] [place], [address], 03/20/2022 12:43:23 03/20/19 23 03/20/2022 COMPR EHENS JESSICA METAB OLIC PANEL calcium 9.1 mg/dL 8.4-10 .2 Not Available [facility] (Lab) [address] [place], [address], 03/20/2022 12:43:23 03/20/19 23 03/20/2022 COMPR EHENS JESSICA METAB OLIC PANEL total protein 6.5 g/dL 6.3-8. 2 Not Available [facility] (Lab) [address] [place], [address], 03/20/2022 12:43:23 03/20/19 23 03/20/2022 COMPR EHENS JESSICA METAB OLIC PANEL albumin 4.1 g/dL 3.0-4. 4 Not Available [facility] (Lab) [address] [place], [address], 03/20/2022 12:43:23 03/20/19 23 03/20/2022 COMPR EHENS JESSICA METAB OLIC PANEL globulin 2.4 g/dL 2.6-4. 2 low Not Available [facility] (Lab) [address] [place], [address], 03/20/2022 12:43:23 03/20/19 23 03/20/2022 COMPR EHENS JESSICA METAB OLIC PANEL A/G ratio 1.7 ratio 1.0-2. 0 Not Available [facility] (Lab) [address] [place], [address], 03/20/2022 12:43:23 03/20/19 23 03/20/2022 SEDIM ENTAT ION RATE erythrocyte sedimentatio n rate 12 mm/HR 0-20 Not Available [facility] (Lab) [address] [place], [address], 03/20/2022 12:30:05 03/20/19 23 03/20/2022 C REACT JESSICA PROTE IN,UL TRA SENS C-reactive protein 0.14 mg/dL 0.0-0. 5 Not Available [facility] (Lab) [address] [place], [address], 03/20/2022 12:54:39 03/20/1903/20/2022 URIC ACID SERUM uric acid 4.7 mg/dL 2.5-6. 2 Not Available [facility] (Lab) [address] [place], [address], 03/20/2022 12:43:31 03/20/19 23 03/20/2022 LIPID PANEL cholesterol 235 mg/dL 140-19 9 high NIH FRANK NSUS RECOM MENDA TION FOR FRANCO STERO L: ADULT CHILD LOW RISK: <200 <170 BORDE RLINE : <200- 239 ----- HIGH RISK: >240 >200 Not Available [facility] (Lab) [address] [place], [address], 03/20/2022 12:43:27 03/20/19 23 03/20/2022 LIPID PANEL triglyceride s 139 mg/dL 0-150 NIH FRANK NSUS REPOR T RECOM MENDA TION FOR TRIGL YCERI JOVANI: ADULT CHILD LOW RISK: <150 ----- BODER LINE: 150-1 99 ----- HIGH RISK: >200 ----- Not Available [facility] (Lab) [address] [place], [address], 03/20/2022 12:43:27 03/20/19 23 03/20/2022 LIPID PANEL HDL cholesterol 59 mg/dL 40- Not Available [facility] (Lab) [address] [place], [address], 03/20/2022 12:43:27 03/20/19 23 03/20/2022 LIPID PANEL [...] WILL NOT BE REPOR SHERI. Not Available [facility] (Lab) [address] [place], [address], 03/20/2022 12:43:27 03/20/1903/20/2022 CBC/C OMPLE TE BLD COUNT W/DIF F white blood cells 4.5 x10'3 /uL 4.2-10 .8 Not Available [facility] (Lab) [address] [place], [address], 03/20/2022 11:55:21 03/20/19 23 03/20/2022 CBC/C OMPLE TE BLD COUNT W/DIF F red blood cells 4.56 x10'6 /uL 3.80-5 .20 Not Available [facility] (Lab) [address] [place], [address], 03/20/2022 11:55:21 03/20/1903/20/2022 CBC/C OMPLE TE BLD COUNT W/DIF F hemoglobin 14.0 g/dL 12.0-1 5.6 Not Available [facility] (Lab) [address] [place], [address], 03/20/2022 11:55:21 03/20/19 23 03/20/2022 CBC/C OMPLE TE BLD COUNT W/DIF F hematocrit 42.8 % 35.7-4 5.7 Not Available [facility] (Lab) [address] [place], [address], 03/20/2022 11:55:21 03/20/19 23 03/20/2022 CBC/C OMPLE TE BLD COUNT W/DIF F mean red cell volume 93.9 fL 82.0-9 9.0 Not Available [facility] (Lab) [address] [place], [address], 03/20/2022 11:55:21 03/20/1903/20/2022 CBC/C OMPLE TE BLD COUNT W/DIF F mean red cell hemoglobin 30.7 pg 27.0-3 3.0 Not Available [facility] (Lab) [address] [place], [address], 03/20/2022 11:55:21 03/20/1903/20/2022 CBC/C OMPLE TE BLD COUNT W/DIF F mean RBC HGB concentratio n 32.7 g/dL 31.0-3 6.0 Not Available [facility] (Lab) [address] [place], [address], 03/20/2022 11:55:21 03/20/19 23 03/20/2022 CBC/C OMPLE TE BLD COUNT W/DIF F red cell distribution width 12.2 % 11.8-1 5.5 Not Available [facility] (Lab) [address] [place], [address], 03/20/2022 11:55:21 03/20/19 23 03/20/2022 CBC/C OMPLE TE BLD COUNT W/DIF F platelets 187 x10'3 /uL 150-40 0 Not Available [facility] (Lab) [address] [place], [address], 03/20/2022 11:55:21 03/20/19 23 03/20/2022 CBC/C OMPLE TE BLD COUNT W/DIF F mean platelet volume 9.9 fL 9.0-12 .4 Not Available [facility] (Lab) [address] [place], [address], 03/20/2022 11:55:21 03/20/19 23 03/20/2022 CBC/C OMPLE TE BLD COUNT W/DIF F neutrophils 64.7 % 39.0-7 2.0 Not Available [facility] (Lab) [address] [place], [address], 03/20/2022 11:55:21 03/20/1903/20/2022 CBC/C OMPLE TE BLD COUNT W/DIF F lymphocytes 26.0 % 16.0-4 7.0 Not Available [facility] (Lab) [address] [place], [address], 03/20/2022 11:55:21 03/20/19 23 03/20/2022 CBC/C OMPLE TE BLD COUNT W/DIF F monocytes 6.5 % 5.0-12 .0 Not Available [facility] (Lab) [address] [place], [address], 03/20/2022 11:55:21 03/20/19 23 03/20/2022 CBC/C OMPLE TE BLD COUNT W/DIF F eosinophils 1.3 % 1.0-7. 0 Not Available [facility] (Lab) [address] [facility] [place], [address], 03/20/2022 11:55:21 03/20/1903/20/2022 CBC/C OMPLE TE BLD COUNT W/DIF F basophils 1.3 % 0.0-2. 0 Not Available [facility] (Lab) [address] [place], [address], 03/20/2022 11:55:21 03/20/19 23 03/20/2022 CBC/C OMPLE TE BLD COUNT W/DIF F immature granulocytes 0.2 % 0.00-0 .50 Not Available [facility] (Lab) [address] [place], [address], 03/20/2022 11:55:21 03/20/1903/20/2022 CBC/C OMPLE TE BLD COUNT W/DIF F neutrophils, absolute count 2.89 x10'3 /uL 1.5-8. 0 Not Available [facility] (Lab) [address] [place], [address], 03/20/2022 11:55:21 03/20/1903/20/2022 CBC/C OMPLE TE BLD COUNT W/DIF F lymphocytes, absolute count 1.16 x10'3 /uL 1.07-3 .43 Not Available [facility] (Lab) [address] [place], [address], 03/20/2022 11:55:21 03/20/19 23 03/20/2022 CBC/C OMPLE TE BLD COUNT W/DIF F monocytes, absolute count 0.29 x10'3 /uL 0.29-0 .99 Not Available [facility] (Lab) [address] [place], [address], 03/20/2022 11:55:21 03/20/19 23 03/20/2022 CBC/C OMPLE TE BLD COUNT W/DIF F eosinophils, absolute count 0.06 x10'3 /uL 0.02-0 .53 Not Available [facility] (Lab) [address] [place], [address], 03/20/2022 11:55:21 03/20/19 23 03/20/2022 CBC/C OMPLE TE BLD COUNT W/DIF F basophils, absolute count 0.06 x10'3 /uL 0.01-0 .08 Not Available [facility] (Lab) [address] [place], [address], 03/20/2022 11:55:21 03/20/19 23 03/20/2022 CBC/C OMPLE TE BLD COUNT W/DIF F immature granulocytes ,absolute 0.01 x10'3 /uL 0.00-0 .05 Not Available [facility] (Lab) [address] [place], [address], 03/20/2022 11:55:21 03/20/19 23 03/20/2022 CBC/C OMPLE TE BLD COUNT W/DIF F nucleated red blood cells 0.0 % -0 Not Available [facility] (Lab) [address] [place], [address], 03/20/2022 11:55:21 03/20/19 23 03/20/2022 CBC/C OMPLE TE BLD COUNT W/DIF F NRBC# 0.00 x10'3 /uL Not Available [facility] (Lab) [address] [place], [address], 03/20/2022 11:55:21 04/25/19 23 05/02/2022 OVA + CYNDI ITE EXAM ova + parasite exam final report These resul ts were obtai anny using wet prepa ratio n(s) and trich truong stain ed smear . This test does not inclu de testi ng for Crypt ospor idium parvu m, Cyclo spora , or Micro spori santi. Not Available [facility] (Lab) [address] [place], [address], 05/02/2022 13:10:26 04/25/19 23 05/02/2022 OVA + CYNDI ITE EXAM result 1 commen t No ova, cysts , or cyndi ites seen. . One negat jessica speci men does not rule out the possi bilit y of a cyndi itic infec tion. Perfo rmed at: - [facility] [address] [place] [address] 126 Lab Direc tor: Crow syed PhD, Phone : [phone] Not Available [facility] (Lab) [address] [place], [address], 05/02/2022 13:10:26 04/25/19 23 04/26/2022 SHIGA (E.CO LI) TOXIN STOOL toxin 1 negati ve Not Available [facility] (Lab) [address] [place], [address], 04/26/2022 10:19:45 04/25/19 23 04/26/2022 SHIGA (E.CO LI) TOXIN STOOL toxin 2 negati ve THIS TEST IS FOR THE RAPID DETEC TION OF SHIGA TOXIN -PROD UCING STRAI NS OF ENTER OHEMO RRAGH IC E. COLI. Not Available [facility] (Lab) [address] [place], [address], 04/26/2022 10:19:45 04/25/19 23 04/26/2022 SHIGA (E.CO LI) TOXIN STOOL QC pos positi ve Not Available [facility] (Lab) [address] [place], [address], 04/26/2022 10:19:45 04/25/19 23 04/26/2022 SHIGA (E.CO LI) TOXIN STOOL QC neg negati ve Not Available [facility] (Lab) [address] [place], [address], 04/26/2022 10:19:45 04/25/19 23 04/25/2022 C DIFFI CILE TOXIN /EPI, DNA toxigenic C.difficile negati ve Not Available [facility] (Lab) [address] [place], [address], 04/25/2022 13:52:17 04/25/19 23 04/25/2022 C DIFFI CILE TOXIN /EPI, DNA 027-nap1-[id number] strain negati ve 027-N API-B 1 STRAI N RESUL TS ARE CONSI DERED TO BE PRESU MPTIV E. Not Available [facility] (Lab) [address] [place], [address], 04/25/2022 13:52:17 08/28/19 23 08/27/2022 CBC/C OMPLE TE BLD COUNT W/DIF F white blood cells 5.8 x10'3 /uL 4.2-10 .8 Not Available [facility] (Lab) [address] [place], [address], 08/27/2022 16:47:17 08/28/19 23 08/27/2022 CBC/C OMPLE TE BLD COUNT W/DIF F red blood cells 5.04 x10'6 /uL 3.80-5 .20 Not Available [facility] (Lab) [address] [place], [address], 08/27/2022 16:47:17 08/28/19 23 08/27/2022 CBC/C OMPLE TE BLD COUNT W/DIF F hemoglobin 15.7 g/dL 12.0-1 5.6 high Not Available [facility] (Lab) [address] [place], [address], 08/27/2022 16:47:17 08/28/19 23 08/27/2022 CBC/C OMPLE TE BLD COUNT W/DIF F hematocrit 48.5 % 35.7-4 5.7 high Not Available [facility] (Lab) [address] [place], [address], 08/27/2022 16:47:17 08/28/1908/27/2022 CBC/C OMPLE TE BLD COUNT W/DIF F mean red cell volume 96.2 fL 82.0-9 9.0 Not Available [facility] (Lab) [address] [place], [address], 08/27/2022 16:47:17 08/28/19 23 08/27/2022 CBC/C OMPLE TE BLD COUNT W/DIF F mean red cell hemoglobin 31.2 pg 27.0-3 3.0 Not Available [facility] (Lab) [address] [place], [address], 08/27/2022 16:47:17 08/28/19 23 08/27/2022 CBC/C OMPLE TE BLD COUNT W/DIF F mean RBC HGB concentratio n 32.4 g/dL 31.0-3 6.0 Not Available [facility] (Lab) [address] [place], [address], 08/27/2022 16:47:17 08/28/19 23 08/27/2022 CBC/C OMPLE TE BLD COUNT W/DIF F red cell distribution width 12.4 % 11.8-1 5.5 Not Available [facility] (Lab) [address] [place], [address], 08/27/2022 16:47:17 08/28/1908/27/2022 CBC/C OMPLE TE BLD COUNT W/DIF F platelets 182 x10'3 /uL 150-40 0 Not Available [facility] (Lab) [address] [place], [address], 08/27/2022 16:47:17 08/28/19 23 08/27/2022 CBC/C OMPLE TE BLD COUNT W/DIF F mean platelet volume 10.8 fL 9.0-12 .4 Not Available [facility] (Lab) [address] [place], [address], 08/27/2022 16:47:17 08/28/1908/27/2022 CBC/C OMPLE TE BLD COUNT W/DIF F neutrophils 67.1 % 39.0-7 2.0 Not Available [facility] (Lab) [address] [place], [address], 08/27/2022 16:47:17 08/28/19 23 08/27/2022 CBC/C OMPLE TE BLD COUNT W/DIF F lymphocytes 25.3 % 16.0-4 7.0 Not Available [facility] (Lab) [address] [place], [address], 08/27/2022 16:47:17 08/28/1908/27/2022 CBC/C OMPLE TE BLD COUNT W/DIF F monocytes 5.2 % 5.0-12 .0 Not Available [facility] (Lab) [address] [place], [address], 08/27/2022 16:47:17 08/28/1908/27/2022 CBC/C OMPLE TE BLD COUNT W/DIF F eosinophils 1.2 % 1.0-7. 0 Not Available [facility] (Lab) [address] [place], [address], 08/27/2022 16:47:17 08/28/1908/27/2022 CBC/C OMPLE TE BLD COUNT W/DIF F basophils 0.9 % 0.0-2. 0 Not Available [facility] (Lab) [address] [place], [address], 08/27/2022 16:47:17 08/28/19 23 08/27/2022 CBC/C OMPLE TE BLD COUNT W/DIF F immature granulocytes 0.3 % 0.00-0 .50 Not Available [facility] (Lab) [address] [place], [address], 08/27/2022 16:47:17 08/28/1908/27/2022 CBC/C OMPLE TE BLD COUNT W/DIF F neutrophils, absolute count 3.91 x10'3 /uL 1.5-8. 0 Not Available [facility] (Lab) [address] [place], [address], 08/27/2022 16:47:17 08/28/1908/27/2022 CBC/C OMPLE TE BLD COUNT W/DIF F lymphocytes, absolute count 1.47 x10'3 /uL 1.07-3 .43 Not Available [facility] (Lab) [address] [place], [address], 08/27/2022 16:47:17 08/28/19 23 08/27/2022 CBC/C OMPLE TE BLD COUNT W/DIF F monocytes, absolute count 0.30 x10'3 /uL 0.29-0 .99 Not Available [facility] (Lab) [address] [place], [address], 08/27/2022 16:47:17 08/28/1908/27/2022 CBC/C OMPLE TE BLD COUNT W/DIF F eosinophils, absolute count 0.07 x10'3 /uL 0.02-0 .53 Not Available [facility] (Lab) [address] [place], [address], 08/27/2022 16:47:17 08/28/1908/27/2022 CBC/C OMPLE TE BLD COUNT W/DIF F basophils, absolute count 0.05 x10'3 /uL 0.01-0 .08 Not Available [facility] (Lab) [address] [place], [address], 08/27/2022 16:47:17 08/28/19 23 08/27/2022 CBC/C OMPLE TE BLD COUNT W/DIF F immature granulocytes ,absolute 0.02 x10'3 /uL 0.00-0 .05 Not Available [facility] (Lab) [address] [place], [address], 08/27/2022 16:47:17 08/28/19 23 08/27/2022 CBC/C OMPLE TE BLD COUNT W/DIF F nucleated red blood cells 0.0 % -0 Not Available [facility] (Lab) [address] [place], [address], 08/27/2022 16:47:17 08/28/19 23 08/27/2022 CBC/C OMPLE TE BLD COUNT W/DIF F NRBC# 0.00 x10'3 /uL Not Available [facility] (Lab) [address] [place], [address], 08/27/2022 16:47:17 08/28/19 23 08/27/2022 COMPR EHENS JESSICA METAB OLIC PANEL sodium 139 mmol/ L 137-14 5 Not Available [facility] (Lab) [address] [place], [address], 08/27/2022 17:15:50 08/28/19 23 08/27/2022 COMPR EHENS JESSICA METAB OLIC PANEL potassium 4.1 mmol/ L 3.5-5. 1 Not Available [facility] (Lab) [address] [place], [address], 08/27/2022 17:15:50 08/28/19 23 08/27/2022 COMPR EHENS JESSICA METAB OLIC PANEL chloride 104 mmol/ L 98-107 Not Available [facility] (Lab) [address] [place], [address], 08/27/2022 17:15:50 08/28/19 23 08/27/2022 COMPR EHENS JESSICA METAB OLIC PANEL carbon dioxide 24 mmol/ L 22-30 Not Available [facility] (Lab) [address] [place], [address], 08/27/2022 17:15:50 08/28/19 23 08/27/2022 COMPR EHENS JESSICA METAB OLIC PANEL anion gap 15.1 mmol/ L 14-22 Not Available [facility] (Lab) [address] [place], [address], 08/27/2022 17:15:50 08/28/19 23 08/27/2022 COMPR EHENS JESSICA METAB OLIC PANEL glucose 84 mg/dL 70-99 Not Available [facility] (Lab) [address] [place], [address], 08/27/2022 17:15:50 08/28/19 23 08/27/2022 COMPR EHENS JESSICA METAB OLIC PANEL BUN 24 mg/dL 8-19 high Not Available [facility] (Lab) [address] [place], [address], 08/27/2022 17:15:50 08/28/19 23 08/27/2022 COMPR EHENS JESSICA METAB OLIC PANEL creatinine 0.77 mg/dL 0.66-1 .25 Not Available [facility] (Lab) [address] [place], [address], 08/27/2022 17:15:50 08/28/19 23 08/27/2022 COMPR EHENS JESSICA METAB OLIC PANEL GFR >60 Refer ence Range : [place] GFR Healt hy Adult : >60 [...] calcu lator is avail able on the [facility] websi te: [email or web address] :[email or web address] ofess [email or web address] qi/gf r_cal culat or Not Available [facility] (Lab) [address] [place], [address], 08/27/2022 17:15:50 08/28/19 23 08/27/2022 COMPR EHENS JESSICA METAB OLIC PANEL alkaline phosphatase 59 U/L 38-126 Not Available [facility] (Lab) [address] [place], [address], 08/27/2022 17:15:50 08/28/19 23 08/27/2022 COMPR EHENS JESSICA METAB OLIC PANEL alanine aminotransfe rase 16 U/L 0-35 Not Available [facility] (Lab) [address] [place], [address], 08/27/2022 17:15:50 08/28/19 23 08/27/2022 COMPR EHENS JESSICA METAB OLIC PANEL aspartate aminotransfe rase 21 U/L 15-37 Not Available [facility] (Lab) [address] [place], [address], 08/27/2022 17:15:50 08/28/19 23 08/27/2022 COMPR EHENS JESSICA METAB OLIC PANEL bilirubin, total 0.60 mg/dL 0.20-1 .30 Not Available [facility] (Lab) [address] [place], [address], 08/27/2022 17:15:50 08/28/19 23 08/27/2022 COMPR EHENS JESSICA METAB OLIC PANEL calcium 9.6 mg/dL 8.4-10 .2 Not Available [facility] (Lab) [address] [place], [address], 08/27/2022 17:15:50 08/28/19 23 08/27/2022 COMPR EHENS JESSICA METAB OLIC PANEL total protein 7.1 g/dL 6.3-8. 2 Not Available [facility] (Lab) [address] [place], [address], 08/27/2022 17:15:50 08/28/19 23 08/27/2022 COMPR EHENS JESSICA METAB OLIC PANEL albumin 4.2 g/dL 3.0-4. 4 Not Available [facility] (Lab) [address] [place], [address], 08/27/2022 17:15:50 08/28/19 23 08/27/2022 COMPR EHENS JESSICA METAB OLIC PANEL globulin 2.9 g/dL 2.6-4. 2 Not Available [facility] (Lab) [address] [place], [address], 08/27/2022 17:15:50 08/28/19 23 08/27/2022 COMPR EHENS JESSICA METAB OLIC PANEL A/G ratio 1.4 ratio 1.0-2. 0 Not Available [facility] (Lab) [address] [place], [address], 08/27/2022 17:15:50 08/28/19 23 08/27/2022 LIPID PANEL cholesterol 222 mg/dL 140-19 9 high NIH FRANK NSUS RECOM MENDA TION FOR FRANCO STERO L: ADULT CHILD LOW RISK: <200 <170 BORDE RLINE : <200- 239 ----- HIGH RISK: >240 >200 Not Available [facility] (Lab) [address] [place], [address], 08/27/2022 17:15:54 08/28/19 23 08/27/2022 LIPID PANEL triglyceride s 183 mg/dL 0-150 high NIH FRANK NSUS REPOR T RECOM MENDA TION FOR TRIGL YCERI JOVANI: ADULT CHILD LOW RISK: <150 ----- BODER LINE: 150-1 99 ----- HIGH RISK: >200 ----- Not Available [facility] (Lab) [address] [place], [address], 08/27/2022 17:15:54 08/28/19 23 08/27/2022 LIPID PANEL HDL cholesterol 64 mg/dL 40- Not Available [facility] (Lab) [address] [place], [address], 08/27/2022 17:15:54 08/28/19 23 08/27/2022 LIPID PANEL [...] WILL NOT BE REPOR SHERI. Not Available [facility] (Lab) [address] [place], [address], 08/27/2022 17:15:54 02/19/20 23 02/18/2023 CBC/C OMPLE TE BLD COUNT W/DIF F white blood cells 6.4 x10'3 /uL 4.2-10 .8 Not Available [facility] (Lab) [address] [place], [address], 02/18/2023 13:13:53 02/19/20 23 02/18/2023 CBC/C OMPLE TE BLD COUNT W/DIF F red blood cells 4.62 x10'6 /uL 3.80-5 .20 Not Available [facility] [facility] (Lab) [address] [place], [address], 02/18/2023 13:13:53 02/19/20 23 02/18/2023 CBC/C OMPLE TE BLD COUNT W/DIF F hemoglobin 14.8 g/dL 12.0-1 5.6 Not Available [facility] (Lab) [address] [facility] [place], [address], 02/18/2023 13:13:53 02/19/20 23 02/18/2023 CBC/C OMPLE TE BLD COUNT W/DIF F hematocrit 45.0 % 35.7-4 5.7 Not Available [facility] (Lab) [address] [facility] [place], [address], 02/18/2023 13:13:53 02/19/20 23 02/18/2023 CBC/C OMPLE TE BLD COUNT W/DIF F mean red cell volume 97.4 fL 82.0-9 9.0 Not Available [facility] (Lab) [address] [place], [address], 02/18/2023 13:13:53 02/19/20 23 02/18/2023 CBC/C OMPLE TE BLD COUNT W/DIF F mean red cell hemoglobin 32.0 pg 27.0-3 3.0 Not Available [facility] (Lab) [address] [place], [address], 02/18/2023 13:13:53 02/19/20 23 02/18/2023 CBC/C OMPLE TE BLD COUNT W/DIF F mean RBC HGB concentratio n 32.9 g/dL 31.0-3 6.0 Not Available [facility] (Lab) [address] [place], [address], 02/18/2023 13:13:53 02/19/20 23 02/18/2023 CBC/C OMPLE TE BLD COUNT W/DIF F red cell distribution width 12.1 % 11.8-1 5.5 Not Available [facility] (Lab) [address] [place], [address], 02/18/2023 13:13:53 02/19/20 23 02/18/2023 CBC/C OMPLE TE BLD COUNT W/DIF F platelets 178 x10'3 /uL 150-40 0 Not Available [facility] (Lab) [address] [place], [address], 02/18/2023 13:13:53 02/19/20 23 02/18/2023 CBC/C OMPLE TE BLD COUNT W/DIF F mean platelet volume 9.8 fL 9.0-12 .4 Not Available [facility] (Lab) [address] [place], [address], 02/18/2023 13:13:53 02/19/20 23 02/18/2023 CBC/C OMPLE TE BLD COUNT W/DIF F neutrophils 68.6 % 39.0-7 2.0 Not Available [facility] (Lab) [address] [place], [address], 02/18/2023 13:13:53 02/19/20 23 02/18/2023 CBC/C OMPLE TE BLD COUNT W/DIF F lymphocytes 22.4 % 16.0-4 7.0 Not Available [facility] (Lab) [address] [place], [address], 02/18/2023 13:13:53 02/19/20 23 02/18/2023 CBC/C OMPLE TE BLD COUNT W/DIF F monocytes 6.1 % 5.0-12 .0 Not Available [facility] (Lab) [address] [place], [address], 02/18/2023 13:13:53 02/19/2002/18/2023 CBC/C OMPLE TE BLD COUNT W/DIF F eosinophils 1.3 % 1.0-7. 0 Not Available [facility] (Lab) [address] [place], [address], 02/18/2023 13:13:53 02/19/20 23 02/18/2023 CBC/C OMPLE TE BLD COUNT W/DIF F basophils 0.8 % 0.0-2. 0 Not Available [facility] (Lab) [address] [place], [address], 02/18/2023 13:13:53 02/19/20 23 02/18/2023 CBC/C OMPLE TE BLD COUNT W/DIF F immature granulocytes 0.8 % 0.00-0 .50 high Not Available [facility] (Lab) [address] [place], [address], 02/18/2023 13:13:53 02/19/2002/18/2023 CBC/C OMPLE TE BLD COUNT W/DIF F neutrophils, absolute count 4.38 x10'3 /uL 1.5-8. 0 Not Available [facility] (Lab) [address] [place], [address], 02/18/2023 13:13:53 02/19/2002/18/2023 CBC/C OMPLE TE BLD COUNT W/DIF F lymphocytes, absolute count 1.43 x10'3 /uL 1.07-3 .43 Not Available [facility] (Lab) [address] [place], [address], 02/18/2023 13:13:53 02/19/20 23 02/18/2023 CBC/C OMPLE TE BLD COUNT W/DIF F monocytes, absolute count 0.39 x10'3 /uL 0.29-0 .99 Not Available [facility] (Lab) [address] [place], [address], 02/18/2023 13:13:53 02/19/20 23 02/18/2023 CBC/C OMPLE TE BLD COUNT W/DIF F eosinophils, absolute count 0.08 x10'3 /uL 0.02-0 .53 Not Available [facility] (Lab) [address] [place], [address], 02/18/2023 13:13:53 02/19/20 23 02/18/2023 CBC/C OMPLE TE BLD COUNT W/DIF F basophils, absolute count 0.05 x10'3 /uL 0.01-0 .08 Not Available [facility] (Lab) [address] [place], [address], 02/18/2023 13:13:53 02/19/20 23 02/18/2023 CBC/C OMPLE TE BLD COUNT W/DIF F immature granulocytes ,absolute 0.05 x10'3 /uL 0.00-0 .05 Not Available [facility] (Lab) [address] [place], [address], 02/18/2023 13:13:53 02/19/20 23 02/18/2023 CBC/C OMPLE TE BLD COUNT W/DIF F nucleated red blood cells 0.0 % -0 Not Available [facility] (Lab) [address] [place], [address], 02/18/2023 13:13:53 02/19/20 23 02/18/2023 CBC/C OMPLE TE BLD COUNT W/DIF F NRBC# 0.00 x10'3 /uL Not Available [facility] (Lab) [address] [place], [address], 02/18/2023 13:13:53 02/19/20 23 02/18/2023 COMPR EHENS JESSICA METAB OLIC PANEL sodium 139 mmol/ L 137-14 5 Not Available [facility] (Lab) [address] [place], [address], 02/18/2023 13:37:40 02/19/20 23 02/18/2023 COMPR EHENS JESSICA METAB OLIC PANEL potassium 4.2 mmol/ L 3.5-5. 1 Not Available [facility] (Lab) [address] [facility] [place], [address], 02/18/2023 13:37:40 02/19/20 23 02/18/2023 COMPR EHENS JESSICA METAB OLIC PANEL chloride 103 mmol/ L 98-107 Not Available [facility] (Lab) [address] [place], [address], 02/18/2023 13:37:40 02/19/20 23 02/18/2023 COMPR EHENS JESSICA METAB OLIC PANEL carbon dioxide 26 mmol/ L 22-30 Not Available [facility] (Lab) [address] [place], [address], 02/18/2023 13:37:40 02/19/20 23 02/18/2023 COMPR EHENS JESSICA METAB OLIC PANEL anion gap 14.2 mmol/ L 14-22 Not Available [facility] (Lab) [address] [place], [address], 02/18/2023 13:37:40 02/19/20 23 02/18/2023 COMPR EHENS JESSICA METAB OLIC PANEL glucose 90 mg/dL 70-99 Not Available [facility] (Lab) [address] [place], [address], 02/18/2023 13:37:40 02/19/20 23 02/18/2023 COMPR EHENS JESSICA METAB OLIC PANEL BUN 26 mg/dL 8-19 high Not Available [facility] (Lab) [address] [place], [address], 02/18/2023 13:37:40 02/19/20 23 02/18/2023 COMPR EHENS JESSICA METAB OLIC PANEL creatinine 0.76 mg/dL 0.66-1 .25 Not Available [facility] (Lab) [address] [place], [address], 02/18/2023 13:37:40 02/19/20 23 02/18/2023 COMPR EHENS JESSICA METAB OLIC PANEL GFR >60 Refer ence Range : [place] ge GFR Healt hy Adult : >60 [...] or ethni c subgr oups, such as Hisms nics. Outsi de the valid ated nanda [...] able on the F websi te: https ://ww w.kid marlene.o rg/pr ofess ional s/kdo qi/gf r_cal culat or Not Available [facility] (Lab) [address] [place], [address], 02/18/2023 13:37:40 02/19/20 23 02/18/2023 COMPR EHENS JESSICA METAB OLIC PANEL alkaline phosphatase 53 U/L 38-126 Not Available [facility] (Lab) [address] [place], [address], 02/18/2023 13:37:40 02/19/20 23 02/18/2023 COMPR EHENS JESSICA METAB OLIC PANEL alanine aminotransfe rase 22 U/L 0-35 Not Available [facility] (Lab) [address] [place], [address], 02/18/2023 13:37:40 02/19/20 23 02/18/2023 COMPR EHENS JESSICA METAB OLIC PANEL aspartate aminotransfe rase 25 U/L 15-37 Not Available [facility] (Lab) [address] [place], [address], 02/18/2023 13:37:40 02/19/20 23 02/18/2023 COMPR EHENS JESSICA METAB OLIC PANEL bilirubin, total 0.90 mg/dL 0.20-1 .30 Not Available [facility] (Lab) [address] [place], [address], 02/18/2023 13:37:40 02/19/20 23 02/18/2023 COMPR EHENS JESSICA METAB OLIC PANEL calcium 9.6 mg/dL 8.4-10 .2 Not Available [facility] (Lab) [address] [place], [address], 02/18/2023 13:37:40 02/19/20 23 02/18/2023 COMPR EHENS JESSICA METAB OLIC PANEL total protein 6.8 g/dL 6.3-8. 2 Not Available [facility] (Lab) [address] [place], [address], 02/18/2023 13:37:40 02/19/20 23 02/18/2023 COMPR EHENS JESSICA METAB OLIC PANEL albumin 4.3 g/dL 3.0-4. 4 Not Available [facility] (Lab) [address] [place], [address], 02/18/2023 13:37:40 02/19/20 23 02/18/2023 COMPR EHENS JESSICA METAB OLIC PANEL globulin 2.5 g/dL 2.6-4. 2 low Not Available [facility] (Lab) [address] [place], [address], 02/18/2023 13:37:40 02/19/20 23 02/18/2023 COMPR EHENS JESSICA METAB OLIC PANEL A/G ratio 1.7 ratio 1.0-2. 0 Not Available [facility] (Lab) [address] [place], [address], 02/18/2023 13:37:40 02/19/20 23 02/18/2023 LIPID PANEL cholesterol 175 mg/dL 140-19 9 NIH FRANK NSUS RECOM MENDA TION FOR FRANCO STERO L: ADULT CHILD LOW RISK: <200 <170 BORDE RLINE : <200- 239 ----- HIGH RISK: >240 >200 Not Available [facility] (Lab) [address] [place], [address], 02/18/2023 13:37:42 02/19/20 23 02/18/2023 LIPID PANEL triglyceride s 152 mg/dL 0-150 high NIH FRANK NSUS REPOR T RECOM MENDA TION FOR TRIGL YCERI JOVANI: ADULT CHILD LOW RISK: <150 ----- BODER LINE: 150-1 99 ----- HIGH RISK: >200 ----- Not Available [facility] (Lab) [address] [place], [address], 02/18/2023 13:37:42 02/19/20 23 02/18/2023 LIPID PANEL HDL cholesterol 63 mg/dL 40- Not Available [facility] (Lab) [address] [place], [address], 02/18/2023 13:37:42 02/19/20 23 02/18/2023 LIPID PANEL [...] WILL NOT BE REPOR SHERI. Not Available [facility] (Lab) [address] [facility], [place], [address], 02/18/2023 13:37:42 03/26/19 23 03/26/2022 XR, knee [facility] [address] [facility], [place] [address] [phone] Patien t Name: ABHAY NGUYEN A Access ion #: [id number] Sex: F : 1940 3 Locati [...] ic residu als Page 1 of 2 [facility] Patien t Name: SONIDO NGUYENROCIO JOYCE A Access ion #: [id number] Sex: F : 1940 3 Exam [...] MD (CT) (CT) Page 2 of 2 [id number] [facility] (Imaging) [address] [place], [address], 05/16/2022 06:18:12 02/20/20 23 02/18/2023 XR, knee [facility] [address] [place] [address] Patien t Name: ABHAY NGUYEN TTE Access ion #: [id number] Sex: F : 1940 8 Dictat ed By: Ryan Mccray Attend ing Physic fanta: KARLIE CLEMENS [facility] Physic fanta: KARLIE CLEMENS Exam Date: Exam [...] at 2022 07:34: 09 AM Page 1 [email or web address] (Imaging) [address] [place], [address], 03/26/2023 15:08:47 03/27/19 25 03/20/2024 XR, knee, 3 view No observ ation record ed. [email or web address] Not Available 03/18 10:19:43 03/27/19 25 03/20/2024 XR, hip + pelvi s, unila teral , 2 or 3 view No observ ation record ed. [email or web address] Not Available 03/18 10:19:43 04/28/19 XR, knee No observ ation record ed. [email or web address] [facility] [address], [address], [place], [address], 04/28/2024 15:20:16 Result Notes Documentation Provider Name and Address Organization Details Recorded Time Xr, Knee : [facility] [address] [place] [address] Patient Name: ANA NGUYEN Sex: F : 1940 Location: [facility] Attending Physician: JAZMYN CLEMENS Ordering Physician: JAZMYN CLEMENS Exam Date: 03/26/2022 9:28 AM Exam Name: XR KNEE BILAT 3V Admitting Diagnosis(es): RADIOLOGY REPORT - FINAL EXAM: XR KNEE BILAT 3V HISTORY: PAIN COMPARISON: 12/05/2014 TECHNIQUE: 3 views of the bilateral knees were performed. FINDINGS: Right: No evidence of a fracture or malalignment. Moderate to severe tricompartmental osteoarthritic residuals noted. There is a small joint effusion. No periosteal reaction. Moderate mediolateral joint compartment all narrowing. Left: Moderate medial compartment narrowing with osteoarthritic residuals Page 1 of 2 [facility] Patient Name: ANA NGUYEN Sex: F : 1940 Exam Date: 03/26/2022 9:28 AM Exam Name: XR KNEE BILAT 3V Admitting Diagnosis(es): medially and laterally, no evidence of a joint effusion.. IMPRESSION: See above. Created and electronically signed by: Chauncey Majano MD Signed Date: 03/26/2022 1:46 PM (CT) Dictated by: Chauncey Majano MD (CT) (CT) Page 2 of 2 Not Available [facility] 05/16/2022 06:18:16 Xr, Knee : [address] [address] Patient Name: ANA NGUYEN Sex: F : 1940 Dictated By: Ryan Mccray Attending Physician: JAZMYN CLEMENS Ordering Physician: JAZMYN CLEMENS Exam Date: Exam Name: XR KNEE BILAT 3V Admitting Diagnosis(es): bilateral knees radiograph CLINICAL INDICATION: PAIN TECHNIQUE: 3 radiographic views of the bilaterla knees were obtained. Comparison: FINDINGS: There is no evidence of acute fracture or dislocation. Moderate bilateral tricompartmental joint space narrowing. The alignment is anatomical. Soft tissues are unremarkable. IMPRESSION: No acute fracture or dislocation. Moderate bilateral osteoarthritis. Page 1 Gris Delaney RN [facility] [place] [employer] [facility] 03/26/2023 15:08:47 Problems Name Problem SNOMED Code Status Onset Date Resolution Date Notes Provider Name and Address Organization Details Recorded Time Gastroesop hageal reflux disease 982846612 Active 2017 Not Available [facility] 3 01:28:55 Essential hypertensi on 19356009 Active 2017 Not Available [facility] 3 01:28:55 Osteoarthr itis 497101387 Active 2019 Not Available [facility] 3 01:28:55 Dyslipidem ia 491160140 Active 2020 Not Available [facility] 3 01:28:55 Hammer toe 253105025 Active 2021 Not Available [facility] 3 01:28:55 Hyperchole sterolemia 22981653 Active 2021 Not Available [facility] 3 01:28:55 Heartburn 01764272 Active 2021 Not Available [facility] 3 01:28:55 Callosity on toe 454567330 Active 2021 Not Available [facility] 3 01:28:55 Pain in toe 014975406 Active 2021 Not Available [facility] 3 01:28:55 Pain of toe of left foot 0282063358729 08 Active 2021 Not Available [facility] 3 01:28:55 Pain in right foot 6001773289241 07 Active 2021 Not Available [facility] 3 01:28:55 Pain of toe of right foot 4475811763520 01 Active 2021 Not Available [facility] 3 01:28:55 Postoperat jessica care Active 2021 Not Available [facility] 3 01:28:55 Pain of left knee joint 8814642640585 07 Active 2021 Not Available [facility] 3 01:28:55 Pain of multiple joints 97047106 Active 2022 Not Available [facility] 3 01:28:55 Pain of bilateral knee joints 8567548299227 04 Active 2022 Not Available [facility] 3 01:28:55 Diarrhea 34185103 Active 2022 Not Available [facility] 3 01:28:55 Problem Notes None recorded. Procedures Surgical History Date Name Laterality Status Provider Name and Address Organization Details Recorded Time 9 repair of umbilical hernia completed Not Available [facility] 05/16/2022 05:58:17 Rotator cuff surgery completed Not Available [facility] 05/16/2022 05:58:17 Removal of ovary(s) completed Not Available [facility] 05/16/2022 05:58:17 amputation of toe completed Not Available [facility] 05/16/2022 05:58:17 Imaging Results None recorded. Procedure Notes None recorded. Medical Equipment None Reported. Allergies Allergen ID Allergen Name Allergen Category Reaction Reaction Severity Criticality Documentation Date Start Date Code Code System Note Provider Name and Address Organization Details Recorded Time 94635 hydrocodo ne Not available other Not available Not available 05/16/2022 5489 RxNorm cryin g Not Available [facility] 3 06:17:40 50427 propoxyph tamara hydrochlo ride medicatio n other Not available Not available 05/16/2022 34213 RxNorm cryin g Not Available [facility] 3 06:17:41 Medications Name Sig Start Date [...] Heart rate Body temperature Body weight Systolic And Diastolic Provider Name and Address Organization Details Last Updated DateTime 3 26.3 kg/m2 157.48 cm 0 68 /min 96.3 [degF] 39276.3 g 126/60 mm[Hg] Not Available [facility] 3 06:03:51 Date Recorded Body mass index (BMI) Body height Heart rate Body temperature Body weight Systolic And Diastolic Provider Name and Address Organization Details Last Updated DateTime 3 26.2 kg/m2 157.48 cm 78 /min 97.6 [degF] 96554.7 1 g 122/60 mm[Hg] Not Available [facility] 3 06:03:52 Date Recorded Body height Body mass index (BMI) Body weight Provider Name and Address Organization Details Last Updated DateTime 04/28/2024 157.48 cm 23.6 kg/m2 20403.42 g Sherry Long [place] [employer] [facility] 04/28/2024 14:17:30 Date Recorded Body height Body mass index (BMI) Body weight Body temperature Heart rate Oxygen saturation Oxygen saturation in Arterial blood by Pulse oximetry Systolic And Diastolic Provider Name and Address Organization Details Last Updated DateTime 3 157.48 cm 24.9 kg/m2 95813.5 6 g 97.8 [degF] 84 /min 96 % 96 % 124/68 mm[Hg] Sirisha Cuevas RN [facility] [employer] [facility] 3 11:22:17 Date Recorded Heart rate Systolic And Diastolic Provider Name and Address Organization Details Last Updated DateTime 09/17/2022 86 /min 122/70 mm[Hg] RADHA Cook [facility] [employer] [facility] 09/17/2022 10:35:44 Date Recorded Body height Body mass index (BMI) Body weight Body temperature Heart rate Systolic And Diastolic Provider Name and Address Organization Details Last Updated DateTime 3 157.48 cm 25.4 kg/m2 96347.3 4 g 97.7 [degF] 77 /min 122/60 mm[Hg] RADHA Cook [facility] 3 11:13:44 Social History Question Answer Notes LastModified by Organizat ion Details LastModified Time Tobacco Smoking Status Never Smoker Not Available [facility] 05/16/2022 05:57:03 Do You Have An Advance Directive? Yes MIGRATION.59251 17606 Information not available 05/16/2022 Are You Blind Or Do You Have Difficulty Seeing? No MIGRATION.99400 49755 Information not available 05/16/2022 What Is Your Level Of Caffeine Consumption? Moderate MIGRATION.01990 62898 Information not available 05/16/2022 How Much Tobacco Do You Chew? None MIGRATION.55756 27393 Information not available 05/16/2022 In The 14 Days Before Symptom Onset, Have You Had Close Contact With A Laboratory-confi rmed COVID-19 While That Case Was Ill? No MIGRATION.01226 26411 Information not available 05/16/2022 In The 14 Days Before Symptom Onset, Have You Had Close Contact With A Person Who Is Under Investigation For COVID-19 While That Person Was Ill? No MIGRATION.82425 57121 Information not available 05/16/2022 Are You Deaf Or Do You Have Serious Difficulty Hearing? No MIGRATION.07398 83368 Information not available 05/16/2022 What Type Of Diet Are You Following? REGULAR MIGRATION.52783 18320 Information not available 05/16/2022 Which Illicit Or Recreational Drugs Have You Used? None MIGRATION.97294 97579 Information not available 05/16/2022 What Is The Highest Grade Or Level Of School You Have Completed Or The Highest Degree You Have Received? [id number] MIGRATION.42174 50160 Information not available 05/16/2022 Have There Been Any Changes To Your Family Or Social Situation? No MIGRATION.32732 05121 Information not available 05/16/2022 What Is The Fluoride Status Of Your Home? Unknown MIGRATION.23155 08590 Information not available 05/16/2022 Are There Any Guns Present In Your Home? No MIGRATION.23755 04695 Information not available 05/16/2022 Do You Use Insect Repellent Routinely? No MIGRATION.75612 35173 Information not available 05/16/2022 Where Do You Live? [place] MIGRATION.29393 46003 Information not available 05/16/2022 Do You Have A Medical Power Of Tube Molder Fiberglass? Yes MIGRATION.17718 18701 Information not available 05/16/2022 What Was The Date Of Your Most Recent Tobacco Screening? 02/18/2023 [email or web address] Information not available 02/18/2023 Do You Have Any Pets? Yes MIGRATION.85640 57268 Information not available 05/16/2022 What Is Your Relationship Status? MIGRATION.21321 54189 Information not available 05/16/2022 Do You Use Your Seat Belt Or Car Seat Routinely? Yes MIGRATION.60615 99704 Information not available 05/16/2022 Do You Have Smoke And Carbon Monoxide Detectors In Your Home? Yes MIGRATION.46692 31527 Information not available 05/16/2022 Are You Passively Exposed To Smoke? No MIGRATION.05253 20250 Information not available 05/16/2022 Are There Any Smokers In Your House? No MIGRATION.19968 08708 Information not available 05/16/2022 How Much Tobacco Do You Smoke? No MIGRATION.21072 96705 Information not available 05/16/2022 What Types Of Sporting Activities Do You Participate In? None MIGRATION.07633 25045 Information not available 05/16/2022 Do You Use Sunscreen Routinely? No MIGRATION.89932 10686 Information not available 05/16/2022 Has Tobacco Cessation Counseling Been Provided? No Not Needed-ne dolores Smoked MIGRATION.54566 95139 Information not available 05/16/2022 How Many Years Have You Smoked Tobacco? 0 MIGRATION.93116 87239 Information not available 05/16/2022 Have You Recently Traveled Abroad? No MIGRATION.54883 96839 Information not available 05/16/2022 Do You Have Difficulty Walking Or Climbing Stairs? No MIGRATION.67706 93016 Information not available 05/16/2022 Do You Have Any Dietary Restrictions? No MIGRATION.02350 15137 Information not available 05/16/2022 Sex: Female Functional Status Question Answer Note LastModified by Organizat ion Details LastModified Time Do you use any illicit or recreational drugs? No MIGRATION.55046 46698 Information not available 05/16/2022 Do you or have you ever used any other forms of tobacco or nicotine? No MIGRATION.80422 26106 Information not available 05/16/2022 What is your level of alcohol consumption? None MIGRATION.55389 95228 Information not available 05/16/2022 Do you or have you ever used smokeless tobacco? Never used smokeless tobacco MIGRATION.92276 09460 Information not available 05/16/2022 Do you have transportation difficulties? No MIGRATION.61764 75576 Information not available 05/16/2022 Are you able to walk independently without assistance or assistive devices? YESWOREST sometimes uses a cane MIGRATION.12444 74760 Information not available 05/16/2022 Do you have difficulty doing errands alone? No MIGRATION.28637 21586 Information not available 05/16/2022 Are you able to care for yourself independently? Yes MIGRATION.84987 48624 Information not available 05/16/2022 What is your occupation? retired MIGRATION.61986 85160 Information not available 05/16/2022 Do you have difficulty dressing, bathing, grooming, or toileting? No MIGRATION.09204 53920 Information not available 05/16/2022 Do you or have you ever used e-cigarettes or vape? Never used electronic cigarettes MIGRATION.20621 66944 Information not available 05/16/2022 What is your exercise level? Occasional MIGRATION.77040 01978 Information not available 05/16/2022 Mental Status Question Answer Note LastModified by Organizat ion Details LastModified Time Do you feel stressed (tense, restless, nervous, or anxious, or unable to sleep at night)? [id number] MIGRATION.[id number] 26 Information not available 05/16/2022 Do you have difficulty concentrating, remembering or making decisions? No MIGRATION.54269474 26 Information not available 05/16/2022 Family History Relationship Description Onset Age of this Age Resolved Age Notes LastModified by Organization Details LastModified Time Son Pancreatitis MIGRATION.0 30 [id number] Not available 05/16/2022 05:58:23 Son Diabetes mellitus MIGRATION.278 [id number] Not available 05/16/2022 05:58:23 Medical History Condition [...] ARTERY DISEASE (CAD) N ADDICTION CONCERNS N Impotence N ENDOMETRIOSIS N USE OF BLOOD THINNERS N SKIN [...] HAVE YOU BEEN HOSPITALIZED OR SEEN IN [facility] IN THE PAST YEAR ? N ATHEROSCLEROSIS N BREAST PROBLEMS N DIALYSIS N ECZEMA N OSTEOPOROSIS N ARTHRITIS Y APPENDICITIS N DIABETES, TYPE N BAD TEETH N ENT N HEARTBURN / REFLUX Y AUTISM SPECTRUM DISORDER (ASD) N HEPATITIS / LIVER DISEASE N GOUT N SLEEP DISORDER N ALZHEIMER'S DISEASE N Brain Problems N DEMENTIA N HERPES N SEIZURES/EPILEPSY N HEADACHES/MIGRAINES N VASCULAR DISEASE N PACEMAKER N Blood Disorder N DIZZINESS Y HEART DISEASE/HEART PROBLEMS N KIDNEY DISEASE N MULTIPLE SCLEROSIS N CANCER: SPECIFY N CARDIAC ARRHYTHMIA N ATRIAL FIBRILLATION N Gall Stones N [...] UNSPECIFIED 3 completed Not Available [facility] 03/01/2023 01:28:55 COVID-19, mRNA, LNP-S, PF, 100 mcg/0.5mL dose or 50 mcg/0.25mL dose 2 completed Not Available [facility] 03/01/2023 01:28:55 COVID-19, mRNA, LNP-S, PF, 30 mcg/0.3 mL dose 1 completed Not Available [facility] 03/01/2023 01:28:55 COVID-19, mRNA, LNP-S, PF, 30 mcg/0.3 mL dose 1 completed Not Available [facility] 03/01/2023 01:28:55 Past Encounters Encounter ID Performer Location Encounter Start Date Encounter Closed Date Diagnosis/Indication Diagnosis SNOMED-CT Code Diagnosis ICD10 Code Diagnosis IMO Codes Diagnosis Note [id number] Jazmyn Clemens MD [facility] [address] [address] 10/03/2020 00:00:00 10/03/2020 21:31:25 [id number] Jazmyn Clemens MD [facility] [address] [address] 1 03/27/2021 00:00:00 03/27/2021 21:26:13 [id number] Jazmyn Clemens MD [facility] [address] [address] 05/01/2021 00:00:00 05/14/2021 11:35:08 [id number] Parth Armas DPM [facility] [address] 07/03/2021 00:00:00 07/13/2021 13:30:42 [id number] Parth Armas DPM [facility] [place] [address] [place] [address] 07/17/2021 00:00:00 07/18/2021 10:07:38 [id number] Jazmyn Clemens MD [facility] [address] [place] [address] [address] 1 07/18/2021 00:00:00 07/18/2021 22:41:09 [id number] Parth Armas DPM [facility] [place] [address] [address] 0 08/07/2021 00:00:00 08/07/2021 14:32:49 [id number] Parth Armas DPM [facility] [place] [address] [address] 0 08/17/2021 00:00:00 08/17/2021 10:16:36 [id number] Parth Armas DPM [facility] [place] [address] [place] [address] 0 09/11/2021 00:00:00 09/11/2021 12:16:00 [id number] Jazmyn Clemens MD [facility] Internal [facility] [address] [place] [address] [address] 11/21/2021 00:00:00 12/09/2021 18:33:57 [id number] Parth Armas DPM [facility] [place] [address] [place] [address] 0 12/11/2021 00:00:00 12/11/2021 11:13:10 [id number] Jazmyn Clemens MD [facility] [address] [place], [place] [address] [address] 03/20/2022 00:00:00 03/20/2022 21:55:40 [id number] Jazmyn Clemens MD [facility] [address] [place] [address] [address] 1 04/24/2022 00:00:00 04/24/2022 22:45:30 [id number] Jazmyn Clemens MD [facility] Internal Med [facility] 15 [address] [facility] [address] [place] [address] 08/27/2022 10:53:46 08/27/2022 12:16:13 Essential hypertension 27949538 I10 Dyslipidemia 135500200 E 78.5 Osteoarthritis 984768242 M19.90 [id number] Jazmyn Clemens MD [facility] Internal Med [facility] 15 [address] [place] [facility] [address] [place] [address] 02/18/2023 10:54:54 02/18/2023 12:14:34 Pain of bilateral knee joints [id number] 81558 M25.561 M25.562 Essential hypertension 77070237 I10 Dyslipidemia 685354082 E 78.5 Osteoarthritis 853672772 M19.90 [id number] Gerardo Yeung MD [facility] [address] [place] [address] 04/28/2024 14:15:33 04/28/2024 14:54:12 Pain of bilateral knee joints [id number] 89676 M25.561 M25.562 Health Concerns Section Related Observation LastModified by Organization Detai ls LastModified Time None Recorded Concern Status LastModified by Organization Details LastModified Time None Recorded Advance Directives Directive Y: Payers Insurance Date Sequence Insurance Name Policy Number Policy Andres Covered Member ID Andres Member ID Guarantor Name 05/15/2024 1 [facility] (MEDICARE REPLACEMENT/A DVANTAGE - HMO) [id number] Ana Nguyen [id number] Ana Nguyen Notes Date Note Type Note Provider Name and Address Organization Details Recorded Time 3 text/html Hypertension no headache no dizzinessOsteoarthritis stableDyslipidemia tries to follow a low-fat dietGERD no nausea no vomit Jazmyn Clemens MD [address] [facility], [facility] [address], [place], [address], [facility] 09/01/2022 21:01:38 3 text/html Hypertension no headache no dizzinessOsteoarthritis pain both kneesDyslipidemia tries to follow a low-fat dietGERD no nausea no vomit Jazmyn Clemens MD [address] [address], [place], [address], [place] [facility] 02/23/2023 12:04:32 OBGyn Episode No OBEpisode recorded.
--- OUTSIDE RECORDS SUMMARY | 2024-12-26 11:57 | XMS_ITS | Data Portability ---
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 Blood pressure is controlled continue with her losartan dyslipidemia atorvastatin. We will follow up with me in 3 months osteoarthritis acetaminophen or short term NSAID [email or web address] Not available 05/17/2024 14:05:22 Plan of Treatment Reminders Order Date Submit Date Provider Last Modified By Organization Details Last Modified Time Details Appointments None recorded. Lab unlisted lab - uric A+ESR-branden+A NA+rf qn+cr...-04 [id number] 2024 025 CHRISTINE Syed, [address], [place], [address], 5 15:12:44 CMP, serum or plasma 2023 024 CHRISTINE Syed, [address], [place], [address], 4 11:10:28 lipid panel, serum 2023 024 CHRISTINE Syed, [address], [address], [place], [address], 4 11:10:27 CBC w/ auto diff 2023 024 CHRISTINE Syed, [address], [address], [place], [address], 4 11:10:28 lipid panel, serum 2023 024 CHRISTINE Syed [address], [address], [place], [address], 4 06:19:02 CMP, serum or plasma 2023 024 CHRISTINE Syed [address], [address], [place], [address], 4 06:19:01 CBC w/ auto diff 2023 024 CHRISTINE Syed [address], [address], [place], [address], 4 06:19:03 Referral orthopedic surgeon referral 2024 025 CHRISTINE Yeung MD, [address], [address], [place], [address], 5 17:19:18 Procedures None recorded. Surgeries None recorded. Imaging XR, knee, 3 view 2023 024 [facility] (Imaging), [address], [place], [address], 5 10:03:24 electrocard iogram 2023 024 In-Office Order, Internal Use Only DO Not Attach Compendium DO Not Attach Compendium, Do Not Delete/merge, [id number] 13:34:55 Medication Orders None recorded. Patient TargetsNo targets recorded. Patient Instructions Encounter Date Encounter Id Patient Instructions Last Modified By Organization Details Last Modified Time 07/24/2023 [id number] preventing falls : care instructions [email or web address] Not available 07/29/2023 20:48:39 Medicare [employer] [facility] Preventive Checklist [email or web address] Not available 07/29/2023 20:48:39 Reason for Referral Orthopedic Surgeon Referral for Pain of knee region Referring Physician: Jazmyn Clemens, Internal Medicine, Encounter Date: 04/21/2024 Results Created Date Observation Date Name Description Value Unit Range Abnormal Flag Note LastModifiedBy Organization Detail LastModifiedTime 06/19/1906/20/2023 CMP14 glucose 85 mg/dL 70-99 Not Availabl e [facility] ([facility]) [address] [facility] [address], [place], [address], 06/20/2023 06:19:01 06/19/19 24 06/20/2023 CMP14 BUN 28 mg/dL 8-27 above high normal Not Available [facility] ([facility]) [address] [facility] [address], [place], [address], 06/20/2023 06:19:01 06/19/19 24 06/20/2023 CMP14 creatinine 0.76 mg/dL 0.57-1 .00 Not Available [facility] ([facility]) [address] [place], [address], 06/20/2023 06:19:01 06/19/19 24 06/20/2023 CMP14 eGFR 79 mL/mi n/1.7 3 >59 Not Available [facility] ([facility]) [address] [place], [address], 06/20/2023 06:19:01 06/19/19 24 06/20/2023 CMP14 BUN/creatini ne ratio 37 12-28 above high normal Not Available [facility] ([facility]) [address] [place], [address], 06/20/2023 06:19:01 06/19/19 24 06/20/2023 CMP14 sodium 141 mmol/ L 134-14 4 Not Available [facility] ([facility]) [address] [place], [address], 06/20/2023 06:19:01 06/19/19 24 06/20/2023 CMP14 potassium 4.3 mmol/ L 3.5-5. 2 Not Available [facility] ([facility]) [address] [place], [address], 06/20/2023 06:19:01 06/19/19 24 06/20/2023 CMP14 chloride 106 mmol/ L 96-106 Not Available [facility] ([facility]) [address] [facility] [place], [address], 06/20/2023 06:19:01 06/19/19 24 06/20/2023 CMP14 carbon dioxide, total 23 mmol/ L 20-29 Not Available [facility] ([facility]) [address] [facility] [place], [address], 06/20/2023 06:19:01 06/19/19 24 06/20/2023 CMP14 calcium 9.5 mg/dL 8.7-10 .3 Not Available [facility] ([facility]) [address] [facility] [place], [address], 06/20/2023 06:19:01 06/19/19 24 06/20/2023 CMP14 protein, total 6.1 g/dL 6.0-8. 5 Not Available [facility] ([facility]) [address] [facility] [place], [address], 06/20/2023 06:19:01 06/19/19 24 06/20/2023 CMP14 albumin 4.4 g/dL 3.7-4. 7 Not Available [facility] ([facility]) [address] [facility] [address], [place], [address], 06/20/2023 06:19:01 06/19/19 24 06/20/2023 CMP14 globulin, total 1.7 g/dL 1.5-4. 5 Not Available [facility] ([facility]) [address] [facility] [place], [address], 06/20/2023 06:19:01 06/19/19 24 06/20/2023 CMP14 A/G ratio 2.6 1.2-2. 2 above high normal Not Available [facility] ([facility]) [address] [facility] [place], [address], 06/20/2023 06:19:01 06/19/19 24 06/20/2023 CMP14 bilirubin, total 0.5 mg/dL 0.0-1. 2 Not Available [facility] ([facility]) [address] [facility] [place], [address], 06/20/2023 06:19:01 06/19/19 24 06/20/2023 CMP14 alkaline phosphatase 53 IU/L 44-121 Not Available [facility] ([facility]) [address] [facility] [address], [place], [address], 06/20/2023 06:19:01 06/19/19 24 06/20/2023 CMP14 AST (SGOT) 14 IU/L 0-40 Not Avail able [facility] ([facility]) [address] [facility] [place], [address], 06/20/2023 06:19:01 06/19/19 24 06/20/2023 CMP14 ALT (SGPT) 15 IU/L 0-32 Not Avail able [facility] ([facility]) [address] [facility] [place], [address], 06/20/2023 06:19:01 06/19/19 24 06/20/2023 LIPID PANEL cholesterol, total 144 mg/dL 100-19 9 Not Available [facility] ([facility]) [address] [place], [address], 06/20/2023 06:19:02 06/19/19 24 06/20/2023 LIPID PANEL triglyceride s 81 mg/dL 0-149 Not Available [facility] ([facility]) [address] [place], [address], 06/20/2023 06:19:02 06/19/19 24 06/20/2023 LIPID PANEL HDL cholesterol 62 mg/dL >39 Not Available [facility] ([facility]) [address] [place], [address], 06/20/2023 06:19:02 06/19/19 24 06/20/2023 LIPID PANEL VLDL cholesterol joe 16 mg/dL 5-40 Not Available [facility] ([facility]) [address] [place], [address], 06/20/2023 06:19:02 06/19/19 24 06/20/2023 LIPID PANEL LDL chol calc ([facility]) 66 mg/dL 0-99 Not Available [facility]) [address] [facility] [address], [place], [address], 06/20/2023 06:19:02 06/19/19 24 06/19/2023 CBC WITH DIFFE RENTI AL/PL ATELE T WBC 5.3 x10e3 /uL 3.4-10 .8 Not Available [facility] ([facility]) [address] [facility] [address], [place], [address], 06/20/2023 06:19:03 06/19/19 24 06/19/2023 CBC WITH DIFFE RENTI AL/PL ATELE T RBC 4.70 x10e6 /uL 3.77-5 .28 Not Available [facility] ([facility]) [address] [facility] [address], [place], [address], 06/20/2023 06:19:03 06/19/19 24 06/19/2023 CBC WITH DIFFE RENTI AL/PL ATELE T hemoglobin 14.5 g/dL 11.1-1 5.9 Not Available [facility] ([facility]) [address] [facility] [address], [place], [address], 06/20/2023 06:19:03 06/19/19 24 06/19/2023 CBC WITH DIFFE RENTI AL/PL ATELE T hematocrit 44.2 % 34.0-4 6.6 Not Available [facility] ([facility]) [address] [facility] [address], [place], [address], 06/20/2023 06:19:03 06/19/1906/19/2023 CBC WITH DIFFE RENTI AL/PL ATELE T MCV 94 fL 79-97 Not Available [facility] ([facility]) [address] [facility] [address], [place], [address], 06/20/2023 06:19:03 06/19/19 24 06/19/2023 CBC WITH DIFFE RENTI AL/PL ATELE T MCH 30.9 pg 26.6-3 3.0 Not Available [facility] ([facility]) [address] [facility] [address], [place], [address], 06/20/2023 06:19:03 06/19/19 24 06/19/2023 CBC WITH DIFFE RENTI AL/PL ATELE T MCHC 32.8 g/dL 31.5-3 5.7 Not Available [facility] ([facility]) [address] [facility] [address], [place], [address], 06/20/2023 06:19:03 06/19/19 24 06/19/2023 CBC WITH DIFFE RENTI AL/PL ATELE T RDW 11.7 % 11.7-1 5.4 Not Available [facility] ([facility]) [address] [facility] [address], [place], [address], 06/20/2023 06:19:03 06/19/19 24 06/19/2023 CBC WITH DIFFE RENTI AL/PL ATELE T platelets 172 x10e3 /uL 150-45 0 Not Available [facility] ([facility]) [address] [facility] [address], [place], [address], 06/20/2023 06:19:03 06/19/19 24 06/19/2023 CBC WITH DIFFE RENTI AL/PL ATELE T neutrophils 71 % notest ab. Not Available [facility] ([facility]) [address] [facility] [address], [place], [address], 06/20/2023 06:19:03 06/19/19 24 06/19/2023 CBC WITH DIFFE RENTI AL/PL ATELE T lymphs 21 % notest ab. Not Available [facility] ([facility]) [address] [facility] [address], [place], [address], 06/20/2023 06:19:03 06/19/19 24 06/19/2023 CBC WITH DIFFE RENTI AL/PL ATELE T monocytes 6 % notest ab. Not Available [facility] ([facility]) [address] [facility] [address], [place], [address], 06/20/2023 06:19:03 06/19/19 24 06/19/2023 CBC WITH DIFFE RENTI AL/PL ATELE T eos 1 % notest ab. Not Available [facility] ([facility]) [address] [facility] [address], [place], [address], 06/20/2023 06:19:03 06/19/19 24 06/19/2023 CBC WITH DIFFE RENTI AL/PL ATELE T basos 1 % notest ab. Not Available [facility] ([facility]) [address] [place], [address], 06/20/2023 06:19:03 06/19/19 24 06/19/2023 CBC WITH DIFFE RENTI AL/PL ATELE T neutrophils (absolute) 3.7 x10e3 /uL 1.4-7. 0 Not Available [facility] ([facility]) [address] [place], [address], 06/20/2023 06:19:03 06/19/19 24 06/19/2023 CBC WITH DIFFE RENTI AL/PL ATELE T lymphs (absolute) 1.1 x10e3 /uL 0.7-3. 1 Not Available [facility] ([facility]) [address] [place], [address], 06/20/2023 06:19:03 06/19/19 24 06/19/2023 CBC WITH DIFFE RENTI AL/PL ATELE T monocytes(ab solute) 0.3 x10e3 /uL 0.1-0. 9 Not Available [facility] ([facility]) [address] [place], [address], 06/20/2023 06:19:03 06/19/19 24 06/19/2023 CBC WITH DIFFE RENTI AL/PL ATELE T eos (absolute) 0.1 x10e3 /uL 0.0-0. 4 Not Available [facility] ([facility]) [address] [place], [address], 06/20/2023 06:19:03 06/19/19 24 06/19/2023 CBC WITH DIFFE RENTI AL/PL ATELE T baso (absolute) 0.1 x10e3 /uL 0.0-0. 2 Not Available [facility] ([facility]) [address] [facility] [address], [place], [address], 06/20/2023 06:19:03 06/19/19 24 06/19/2023 CBC WITH DIFFE RENTI AL/PL ATELE T immature granulocytes 0 % notest ab. Not Available [facility] ([facility]) [address] [facility] [address], [place], [address], 06/20/2023 06:19:03 06/19/19 24 06/19/2023 CBC WITH DIFFE RENTI AL/PL ATELE T immature grans (abs) 0.0 x10e3 /uL 0.0-0. 1 Not Available [facility] ([facility]) [address] [facility] [address], [place], [address], 06/20/2023 06:19:03 10/22/19 24 10/23/2023 LIPID PANEL cholesterol, total 152 mg/dL 100-19 9 Not Available [facility] ([facility]) [address] [facility] [address], [place], [address], 10/23/2023 11:10:27 10/22/19 24 10/23/2023 LIPID PANEL triglyceride s 103 mg/dL 0-149 Not Available [facility] ([facility]) [address] [facility] [address], [place], [address], 10/23/2023 11:10:27 10/22/19 24 10/23/2023 LIPID PANEL HDL cholesterol 59 mg/dL >39 Not Available [facility] ([facility]) [address] [facility] [address], [place], [address], 10/23/2023 11:10:27 10/22/19 24 10/23/2023 LIPID PANEL VLDL cholesterol joe 19 mg/dL 5-40 Not Available [facility] ([facility]) [address] [place], [address], 10/23/2023 11:10:27 10/22/19 24 10/23/2023 LIPID PANEL LDL chol calc ([facility]) 74 mg/dL 0-99 Not Available [facility] ([facility]) [address] [place], [address], 10/23/2023 11:10:27 10/22/19 24 10/23/2023 COMP. METAB OLIC PANEL (14) glucose 84 mg/dL 70-99 Not Available [facility] ([facility]) [address] [facility] [address], [place], [address], 10/23/2023 11:10:28 10/22/19 24 10/23/2023 COMP. METAB OLIC PANEL (14) BUN 30 mg/dL 8-27 above high normal Not Available [facility] ([facility]) [address] [place], [address], 10/23/2023 11:10:28 10/22/19 24 10/23/2023 COMP. METAB OLIC PANEL (14) creatinine 0.75 mg/dL 0.57-1 .00 Not Available [facility] ([facility]) [address] [place], [address], 10/23/2023 11:10:28 10/22/19 24 10/23/2023 COMP. METAB OLIC PANEL (14) eGFR 80 mL/mi n/1.7 3 >59 Not Available [facility] ([facility]) [address] [place], [address], 10/23/2023 11:10:28 10/22/19 24 10/23/2023 COMP. METAB OLIC PANEL (14) BUN/creatini ne ratio 40 12-28 above high normal Not Available [facility] ([facility]) [address] [place], [address], 10/23/2023 11:10:28 10/22/19 24 10/23/2023 COMP. METAB OLIC PANEL (14) sodium 140 mmol/ L 134-14 4 Not Available [facility] ([facility]) [address] [place], [address], 10/23/2023 11:10:28 10/22/19 24 10/23/2023 COMP. METAB OLIC PANEL (14) potassium 4.3 mmol/ L 3.5-5. 2 Not Available [facility] ([facility]) [address] [place], [address], 10/23/2023 11:10:28 10/22/19 24 10/23/2023 COMP. METAB OLIC PANEL (14) chloride 104 mmol/ L 96-106 Not Available [facility] ([facility]) [address] [place], [address], 10/23/2023 11:10:28 10/22/19 24 10/23/2023 COMP. METAB OLIC PANEL (14) carbon dioxide, total 23 mmol/ L 20-29 Not Available [facility] ([facility]) [address] [place], [address], 10/23/2023 11:10:28 10/22/19 24 10/23/2023 COMP. METAB OLIC PANEL (14) calcium 9.6 mg/dL 8.7-10 .3 Not Available [facility] ([facility]) [address] [facility] [place], [address], 10/23/2023 11:10:28 10/22/19 24 10/23/2023 COMP. METAB OLIC PANEL (14) protein, total 6.3 g/dL 6.0-8. 5 Not Available [facility] ([facility]) [address] [place], [address], 10/23/2023 11:10:28 10/22/19 24 10/23/2023 COMP. METAB OLIC PANEL (14) albumin 4.2 g/dL 3.7-4. 7 Not Available [facility] ([facility]) [address] [facility] [address], [place], [address], 10/23/2023 11:10:28 10/22/19 24 10/23/2023 COMP. METAB OLIC PANEL (14) globulin, total 2.1 g/dL 1.5-4. 5 Not Available [facility] ([facility]) [address] [facility] [address], [place], [address], 10/23/2023 11:10:28 10/22/19 24 10/23/2023 COMP. METAB OLIC PANEL (14) bilirubin, total 0.7 mg/dL 0.0-1. 2 Not Available [facility] ([facility]) [address] [facility] [address], [place], [address], 10/23/2023 11:10:28 10/22/19 24 10/23/2023 COMP. METAB OLIC PANEL (14) alkaline phosphatase 55 IU/L 44-121 Not Available [facility] ([facility]) [address] [facility] [address], [place], [address], 10/23/2023 11:10:28 10/22/19 24 10/23/2023 COMP. METAB OLIC PANEL (14) AST (SGOT) 17 IU/L 0-40 Not Available [facility] ([facility]) [address] [facility] [address], [place], [address], 10/23/2023 11:10:28 10/22/19 24 10/23/2023 COMP. METAB OLIC PANEL (14) ALT (SGPT) 13 IU/L 0-32 Not Available [facility] ([facility]) [address] [facility] [address], [place], [address], 10/23/2023 11:10:28 10/22/19 24 10/23/2023 CBC WITH DIFFE RENTI AL/PL ATELE T WBC 6.1 x10e3 /uL 3.4-10 .8 Not Available [facility] ([facility]) [address] [facility] [address], [place], [address], 10/23/2023 11:10:28 10/22/19 24 10/23/2023 CBC WITH DIFFE RENTI AL/PL ATELE T RBC 4.38 x10e6 /uL 3.77-5 .28 Not Available [facility] ([facility]) [address] [facility] [address], [place], [address], 10/23/2023 11:10:28 10/22/19 24 10/23/2023 CBC WITH DIFFE RENTI AL/PL ATELE T hemoglobin 14.1 g/dL 11.1-1 5.9 Not Available [facility] ([facility]) [address] [facility] [address], [place], [address], 10/23/2023 11:10:28 10/22/19 24 10/23/2023 CBC WITH DIFFE RENTI AL/PL ATELE T hematocrit 43.6 % 34.0-4 6.6 Not Available [facility] ([facility]) [address] [facility] [address], [place], [address], 10/23/2023 11:10:28 10/22/19 24 10/23/2023 CBC WITH DIFFE RENTI AL/PL ATELE T MCV 100 fL 79-97 above high normal Not Available [facility] ([facility]) [address] [place], [address], 10/23/2023 11:10:28 10/22/19 24 10/23/2023 CBC WITH DIFFE RENTI AL/PL ATELE T MCH 32.2 pg 26.6-3 3.0 Not Available [facility] ([facility]) [address] [place], [address], 10/23/2023 11:10:28 10/22/19 24 10/23/2023 CBC WITH DIFFE RENTI AL/PL ATELE T MCHC 32.3 g/dL 31.5-3 5.7 Not Available [facility] ([facility]) [address] [facility] [address], [place], [address], 10/23/2023 11:10:28 10/22/19 24 10/23/2023 CBC WITH DIFFE RENTI AL/PL ATELE T RDW 12.0 % 11.7-1 5.4 Not Available [facility] ([facility]) [address] [facility] [address], [place], [address], 10/23/2023 11:10:28 10/22/19 24 10/23/2023 CBC WITH DIFFE RENTI AL/PL ATELE T platelets 182 x10e3 /uL 150-45 0 Not Available [facility] ([facility]) [address] [facility] [address], [place], [address], 10/23/2023 11:10:28 10/22/19 24 10/23/2023 CBC WITH DIFFE RENTI AL/PL ATELE T neutrophils 66 % notest ab. Not Available [facility] ([facility]) [address] [facility] [address], [place], [address], 10/23/2023 11:10:28 10/22/19 24 10/23/2023 CBC WITH DIFFE RENTI AL/PL ATELE T lymphs 24 % notest ab. Not Available [facility] ([facility]) [address] [facility] [address], [place], [address], 10/23/2023 11:10:28 10/22/19 24 10/23/2023 CBC WITH DIFFE RENTI AL/PL ATELE T monocytes 7 % notest ab. Not Available [facility] ([facility]) [address] [facility] [address], [place], [address], 10/23/2023 11:10:28 10/22/19 24 10/23/2023 CBC WITH DIFFE RENTI AL/PL ATELE T eos 2 % notest ab. Not Available [facility] ([facility]) [address] [facility] [address], [place], [address], 10/23/2023 11:10:28 10/22/19 24 10/23/2023 CBC WITH DIFFE RENTI AL/PL ATELE T basos 1 % notest ab. Not Available [facility] ([facility]) [address] [facility] [address], [place], [address], 10/23/2023 11:10:28 10/22/19 24 10/23/2023 CBC WITH DIFFE RENTI AL/PL ATELE T neutrophils (absolute) 4.1 x10e3 /uL 1.4-7. 0 Not Available [facility] ([facility]) [address] [facility] [address], [place], [address], 10/23/2023 11:10:28 10/22/19 24 10/23/2023 CBC WITH DIFFE RENTI AL/PL ATELE T lymphs (absolute) 1.5 x10e3 /uL 0.7-3. 1 Not Available [facility] ([facility]) [address] [facility] [address], [place], [address], 10/23/2023 11:10:28 10/22/19 24 10/23/2023 CBC WITH DIFFE RENTI AL/PL ATELE T monocytes(ab solute) 0.4 x10e3 /uL 0.1-0. 9 Not Available [facility] ([facility]) [address] [facility] [address], [place], [address], 10/23/2023 11:10:28 10/22/19 24 10/23/2023 CBC WITH DIFFE RENTI AL/PL ATELE T eos (absolute) 0.1 x10e3 /uL 0.0-0. 4 Not Available [facility] ([facility]) [address] [facility] [address], [place], [address], 10/23/2023 11:10:28 10/22/19 24 10/23/2023 CBC WITH DIFFE RENTI AL/PL ATELE T baso (absolute) 0.1 x10e3 /uL 0.0-0. 2 Not Available [facility] ([facility]) [address] [facility] [address], [place], [address], 10/23/2023 11:10:28 10/22/19 24 10/23/2023 CBC WITH DIFFE RENTI AL/PL ATELE T immature granulocytes 0 % notest ab. Not Available [facility] ([facility]) [address] [facility] [address], [place], [address], 10/23/2023 11:10:28 10/22/19 24 10/23/2023 CBC WITH DIFFE RENTI AL/PL ATELE T immature grans (abs) 0.0 x10e3 /uL 0.0-0. 1 Not Available [facility] ([facility]) [address] [facility] [address], [place], [address], 10/23/2023 11:10:28 04/21/19 25 04/22/2024 URIC A+ESR -BRANDEN+ JULIEN+R F QN+CR ... uric acid 3.8 mg/dL 3.1-7. 9 Thera chris jones t for gout patie nts: <6.0 Not Available [facility] ([facility]) [address] [facility] [address], [place], [address], 04/22/2024 15:12:44 04/21/19 25 04/22/2024 URIC A+ESR -BRANDEN+ JULIEN+R F QN+CR ... JULIEN direct NEGATI VE negati ve Not Available [facility] ([facility]) [address] [facility] [address], [place], [address], 04/22/2024 15:12:44 04/21/19 25 04/22/2024 URIC A+ESR -BRANDEN+ JULIEN+R F QN+CR ... rheumatoid factor (rf) 11.6 IU/mL <14.0 Not Available [facility] ([facility] [address] [facility] [address], [place], [address], 04/22/2024 15:12:44 04/21/19 25 04/22/2024 URIC A+ESR -BRANDEN+ JULIEN+R F QN+CR ... C-reactive protein, quant <1 mg/L 0-10 Not Available [facility] ([facility] [address] [facility], [place], [address], 04/22/2024 15:12:44 04/21/19 25 04/22/2024 URIC A+ESR -BRANDEN+ JULINE+R F QN+CR ... antistreptol ysin O Ab 46.9 IU/mL 0.0-20 0.0 Not Available [facility] ([facility]) [address] [facility], [place], [address], 04/22/2024 15:12:44 04/21/19 25 04/22/2024 URIC A+ESR -BRANDEN+ JULIEN+R F QN+CR ... sedimentatio n rate-westerg clarissa 2 mm/HR 0-40 Not Available [facility] ([facility]) [address] [facility], [place], [address], 04/22/2024 15:12:44 02/25/20 24 02/25/2024 US, duple x, venou s, lower extre mity No observ ation record ed. [address] [facility], [place], [address], 02/26/2024 09:26:20 02/25/20 24 02/25/2024 XR, lumba r spine , 2 view No observ ation record ed. [address], [place], [address], 02/26/2024 12:02:16 02/25/20 24 02/25/2024 XR, hip + pelvi s, unila teral , 2 or 3 view No observ ation record ed. [address], [place], [address], 02/26/2024 13:36:24 02/28/20 elect rocar diogr am No observ ation record ed. CHRISTINE In-Office Order Internal Use Only DO Not Attach Compendium DO Not Attach Compendium, Do Not Delete/merge, [id number] 02/28/2024 11:16:26 02/28/20 24 02/28/2024 elect rocar diogr am No observ ation record ed. CHRISTINE In-Office Order Internal Use Only DO Not Attach Compendium DO Not Attach Compendium, Do Not Delete/merge, [id number] 02/28/2024 11:23:38 03/21/1903/20/2024 XR, knee, 3 view No observ ation record ed. [address], [place], [address], 03/26/2024 10:09:35 04/04/19 25 04/04/2024 US, doppl er, venou s No observ ation record ed. [address], [place], [address], 04/10/2024 09:08:26 Result Notes None recorded. Problems Name Problem SNOMED Code Status Onset Date Resolution Date Notes Provider Name and Address Organization Details Recorded Time Essential hypertensio n 84586279 Active 2023 Pito Byrd MA null, [place] - [facility] 4 11:45:46 Hyperlipide rafi 60631060 Active 2023 Pito Byrd [place] null, [place] [facility] 4 11:45:47 Osteoarthri tis 919555550 Active 2023 Pito Byrd [place], [place] [facility] 4 11:45:48 Mammogram declined 788666151 Active 2023 Jazmyn Clemens MD Attn: Amanda g,[address] [facility], [place], [address], [place] [facility] 16:23:57 Colonoscopy declined 1012702806822 00 Active 2023 Jazmyn Clemens MD Attn: Amanda east,[address], [place], [address], [facility] [place] 16:23:57 Problem Notes None recorded. Procedures Surgical History Date Name Laterality Status Provider Name and Address Organization Details Recorded Time 03/17/19 Total hysterectomy completed Elida Perez [facility] 02/28/2024 10:39:50 Hernia Repair completed Jinny Tatum [facility] - [facility] 06/19/2023 11:11:56 colonoscopy completed Jinny Tatum [facility] - [facility] 06/19/2023 11:15:11 Imaging Results None recorded. Procedure Notes None [...] Not Available Not Available No t Available atorvastati n 10 mg tablet TAKE 1 TABLET BY MOUTH EVERY DAY active Not Available Not Available No t Available acetazolami de ER 500 mg capsule,ext ended release TAKE 1 CAPSULE BY MOUTH TWICE A DAY active Not Available Not Available No t Available meloxicam 15 mg tablet TAKE 1 TABLET EVERY DAY NEEDED FOR 30 DAYS active Not Available Not Available No t Available ketorolac 0.5 % eye drops USE 1 DROP TO THE OPERATIVE EYE ONCE DAILY active Not Available Not Available No t Available prednisolon e acetate 1 % eye drops,suspe nsion INSTILL 1 DROP INTO OPERATIVE EYE 4 TIMES DAILY active Not Available Not Available No t Available polymyxin B sulfate 10,000 unit-trimet hoprim 1 mg/mL eye drops INSTILL 1 DROP INTO OPERATIVE EYE 4 TIMES DAILY active Not Available Not Available No t Available losartan 25 mg tablet TAKE 1 TABLET BY MOUTH EVERY DAY 06/02 completed Not Available Not Available Not Available dorzolamide 22.3 mg-timolol 6.8 mg/mL eye drops INSTILL 1 DROP INTO RIGHT EYE TWICE A DAY active Not Available Not Available No t Available furosemide 20 mg tablet TAKE 1 TABLET BY MOUTH EVERY DAY NEEDED active Not Available Not Available No t Available naproxen 500 mg tablet TAKE 1 TABLET BY MOUTH TWICE A DAY NEEDED 04/21 completed Not Available Not Available Not Available Vitals Date Recorded Body height Body mass index (BMI) Body weight Heart rate Oxygen saturation Oxygen saturation in Arterial blood by Pulse oximetry Systolic And Diastolic Provider Name and Address Organization Details Last Updated DateTime 5 160.02 cm 23 kg/m2 75625.3 7 g 83 /min 99 % 99 % 110/60 mm[Hg] Elida Perez MA [facility] 5 10:58:35 Date Recorded Body weight Body temperature Oxygen saturation Oxygen saturation in Arterial blood by Pulse oximetry Heart rate Systolic And Diastolic Provider Name and Address Organization Details Last Updated DateTime 4 63243.6 4 g 98.6 [degF] 98 % 98 % 66 /min 140/70 mm[Hg] Jinny Tatum MA [facility] 4 11:16:52 Date Recorded Pain severity - 0-10 verbal numeric rating [Score] - Reported Provider Name and Address Organization Details Last Updated DateTime 07/24/2023 0 Tiffanie Mcmullen [facility] 07/24/2023 11:27:21 Date Recorded Body weight Body mass index (BMI) Body height Heart rate Oxygen saturation Oxygen saturation in Arterial blood by Pulse oximetry Systolic And Diastolic Provider Name and Address Organization Details Last Updated DateTime 4 61886.3 6 g 24.2 kg/m2 160.02 cm 90 /min 97 % 97 % 130/72 mm[Hg] Jinny Tatum MA [facility] 4 11:25:59 Date Recorded Body height Body mass index (BMI) Body weight Heart rate Oxygen saturation Oxygen saturation in Arterial blood by Pulse oximetry Systolic And Diastolic Provider Name and Address Organization Details Last Updated DateTime 4 160.02 cm 24 kg/m2 72720.7 7 g 82 /min 97 % 97 % 130/66 mm[Hg] Kait Jones MA [facility] 4 11:28:22 Date Recorded Body height Body mass index (BMI) Body weight Heart rate Oxygen saturation Oxygen saturation in Arterial blood by Pulse oximetry Systolic And Diastolic Provider Name and Address Organization Details Last Updated DateTime 4 160.02 cm 23.9 kg/m2 91429.3 3 g 88 /min 99 % 99 % 130/70 mm[Hg] Elida Perez MA [facility] 4 10:49:35 Social History Question Answer Notes LastModified by Organizat ion Details LastModified Time Tobacco Smoking Status Never Smoker Jinny Tatum MA null, [place] - [facility] 06/19/2023 11:12:34 Do You Have An Advance Directive? Yes Information not available 07/24/2023 Are You Blind Or Do You Have [...] No Information not available 02/28/2024 Are You Deaf Or Do You Have Serious Difficulty Hearing? No Information not available 06/19/2023 What Type Of Diet Are You Following? REGULAR Information not available 07/24/2023 What Is The Highest Grade Or Level Of School You Have Completed Or The Highest Degree You Have Received? [id number] Information not available 07/24/2023 Are There Any [...] 7 Days, How Much Pain Have You Manning? Some Information not available 07/24/2023 In General, [...] Past 7 Days, How Often Have You Manning Sleepy In The Daytime? Usually Information not [...] Yes Information not available 07/24/2023 Do You Use Sunscreen Routinely? No Information not available 07/24/2023 Has Tobacco Cessation Counseling Been Provided? No Information not available 07/24/2023 Sex: Female Functional Status Question Answer Note LastModified by Organizat ion Details LastModified Time Do you use any illicit or recreational drugs? No Information not available 07/24/2023 Do you or have you ever used any other forms of tobacco or nicotine? No Information not available 07/24/2023 What is your level of alcohol consumption? None Information not available 06/19/2023 Are you currently employed? No Information not available 07/24/2023 Are you able to care for yourself independently? Yes Information not available 06/19/2023 What is your exercise level? Moderate Information not available 07/24/2023 Mental Status Question Answer Note LastModified by Organization D etails LastModified Time Do you feel stressed (tense, restless, nervous, or anxious, or unable to sleep at night)? SG5835-1 Information not available 07/24/2023 Family History Relationship Description Onset Age of this Age Resolved Age Notes LastModified by Organization Details LastModified Time Son Diabetes mellitus [email or web address] Not available 2023 11:10:44 Father Harmful pattern of use of alcohol [email or web address] Not available 2023 11:10:53 Mother Harmful pattern of use of alcohol [email or web address] Not available 2023 11:10:53 Medical History Condition Response Coronary Artery Disease N Other N High Blood Pressure Y Atrial Fibrillation N Kidney or Bladder Problems N Thyroid Problems N GI Problems N Depression N COPD N Blood Clots N Skin Problems N Anemia N Heart Attack (NH) N Anxiety Disorder N Diabetes N Muscle, [...] or 50 mcg/0.25mL dose 03/21/2021 completed Tiffanie Stormhl null, [place] [facility] 07/23/2023 16:01:22 COVID-19, mRNA, LNP-S, PF, 30 mcg/0.3 mL dose 08/04/2020 completed Tiffanie Stormhl [place], [place] [facility] 07/23/2023 16:01:22 COVID-19, mRNA, LNP-S, PF, 30 mcg/0.3 mL dose 08/25/2020 completed Tiffanie [place] [facility] 07/23/2023 16:01:22 COVID-19, mRNA, LNP-S, bivalent, PF, 50 mcg/0.5 mL or 25mcg/0.25 mL dose 12/26/2021 completed Tiffanie Lud[place], [place] [facility] 07/23/2023 16:01:22 COVID-19, mRNA, LNP-S, PF, jill-sucrose, 30 mcg/0.3 mL 12/20/2022 completed Tiffanie Lud[place] null, [place] [facility] 07/23/2023 16:01:22 Past Encounters Encounter ID Performer Location Encounter Start Date Encounter Closed Date Diagnosis/Indication Diagnosis SNOMED-CT Code Diagnosis ICD10 Code Diagnosis IMO Codes Diagnosis Note [id number] MD Mariana Valdivia (Adult Med) [address] [place] [phone] 06/19/2023 10:36:25 06/19/2023 11:50:56 Essential hypertension 68353868 I10 Hyperlipidemia 92943737 E78.5 Osteoarthritis 258584352 M19.90 Mammogram declined 98176 5004 Z53.20 Colon canc er screening declined 9462314357 9109 Z53.20 [id number] MD Mariana Valdivia (Adult Med) [address] [place] [phone] 0 07/24/2023 10:34:43 07/24/2023 12:53:27 Adult health examination 750754354 Z00.00 Health Risk Assessment collected and reviewed [id number] MD Mariana Valdivia (Adult Med) [address] [place] [phone] 0 10/22/2023 10:57:03 10/22/2023 12:43:57 Essential hypertension 22867771 I10 Hyperlipidemia 45673384 E78.5 Osteoarthritis 919651686 M19.90 Colonoscopy declined 140 1216933 31605 Z53.20 Mammogram declined 15877 5004 Z53.20 [id number] [facility] [address] [place] [phone] 0 02/28/2024 10:32:48 02/28/2024 12:11:26 Body mass index 20-24 - normal 560217086 Z68.23 Pre-surger y evaluation 212868381 Z01.818 Pain of le ft knee joint 2831412206 33366 M25.562 Essential hypertension 17020272 I10 Hyperlipidemia 57091986 E78.5 [id number] MD Mariana Valdivia (Adult Med) [address] [place] [phone] 0 04/21/2024 10:41:41 04/21/2024 11:32:29 Body mass index 20-24 - normal 347968760 Z68.23 Pain of knee region 1003 377975 M25.569 Both knees Essential hypertension 50816762 I10 Hyperlipidemia 39503798 E78.5 Osteoarthritis 494016569 M19.90 Health Concerns Section Related Observation LastModified by Organization Detai ls LastModified Time None Recorded Concern Status LastModified by Organization Details LastModified Time None Recorded Advance Directives Directive Y: Payers Insurance Date Sequence Insurance Name Policy Number Policy Andres Covered Member ID Andres Member ID Guarantor Name 08/23/2024 MEDICARE A[place]: [facility] Charla A Quarles [id number] Charla Quarles 08/23/2024 2 [place] Charla A Quarles [id number] Charla Quarles 08/23/2024 1 [facility] (MEDICARE REPLACEMENT/A DVANTAGE - HMO) [id number] Charla A Quarles [id number] Charla Quarles Notes Date Note Type Note Provider Name and Address Organization Details Recorded Time 06/19/2023 text/html 83-year-old with hypertension dyslipidemia and arthritis who comes in for continuity of care she has been taking her atorvastatin losartan and naproxen without any problem Jazmyn Clemens MD Attn: Accounting[address] [place], [address], [facility] 07/17/2023 22:16:07 07/24/2023 text/html MAW 2Reported by PatientSocial/Behavio ral HistoryFor diet and nutrition, patient reportshealthy diet. For fracture risk, patient reportsno history of fracturesandno sudden unexplained fractures.Mental Status:For concentration and memory, patient reportsno decreased concentrating ability,no memory lapses or loss, anddoes not forget words. For speech/motor difficulties, patient reportsno speech difficulties,no difficulty expressing formulated concepts,no difficulty with fine manipulative tasks,no difficulty writing/copying,no slowed reaction time, anddoes not knock things over when trying to pick them up.Functional AbilityFor vision, patient reportsworse near (glasses). For hearing, patient reportsno loss of hearing. For activities of daily living, patient reportsable to bathe with limited or no assistance,able to contol urination and bowels,able to dress with limited or no assistance,able to feed self with limited or no assistance,able to get out of chair or bed with limited or no assistance,able to groom with limited or no assistance, andable to toilet with limited or no assistance. For instrumental activities of daily living, patient reportsable to do house work with limited or no assistance,able to grocery shop with limited or no assistance,able to manage medications with limited or no assistance,able to manage money with limited or no assistance,able to prepare meals with limited or no assistance, andable to use the phone with limited or no assistance. For falls risk assessment, patient reportsno frequent falls while walking,no fall in the past year,no fall since last visit, andno dizziness/vertigo. For home safety, patient reportsno unsafe winter hazzards,no unsafe stairs,working smoke/co detectors,practicing 'safer sex',no fire arms,has hand bars in the bathroom/shower,good lighting in the home, andreviewed sun protection. Jazmyn Clemens MD Attn: [address] [place], [address], [facility] 07/29/2023 20:49:00 10/22/2023 text/html hypertension no headache dizziness or palpitations. 2. Hyperlipidemia takes the atorvastatin no side effects. Jazmyn Clemens MD Attn: [address] [place], [address], [facility] 11/09/2023 16:24:34 02/28/2024 text/html 1. Going to [...] Naprosyn as needed Jazmyn Clemens MD Attn: [address] [place], [address], [facility] 02/29/2024 13:49:40 04/21/2024 text/html hypertension blood pressure controlled no chest pain headache or dizziness. Hyperlipidemia taking her atorvastatin trying to watch her intake of saturated fat. She has a lot of problems with her knees bilaterally they seem to bother her more and more she wants to avoid surgery but she is really being hampered with regards to her quality of life Jazmyn Clemens MD Attn: [address] [facility], [place], [address], [place] [facility] 05/17/2024 14:05:49 OBGyn Episode No OBEpisode recorded.
--- OUTSIDE RECORDS SUMMARY | 2024-12-26 11:57 | XMS_ITS | Clinical Summary ---
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 Role Phone Darrell Clemens MD Primary Care Provider [phone] Allergies No known active allergies Medications lisinopril [...] A M CDT Height 162.6 cm (5' 4) 08/06/2018 8:30 AM CDT Body Mass Index [...] - 1-dose 75+ series) 2017 COVID-19 Vaccine (1 - 2023-2 5 season) 2024 Influenza Adult (#1) 2024 Meningococcal B Vaccine Aged Out No l onger eligible based on patient's age to complete this topic Meningococcal Vaccine Aged Out No vladimir krystina eligible based on patient's age to complete this topic RSV Immunizations Under 20 Months Aged Out No longer eligible based on patient's age to complete this topic Insurance MEDICARE Care Teams Welding Machine Assembler Relationship Specialty Start Date End Date Darrell Clemens MD PCP - General INTERNAL MEDICINE 07/18/18
[2024-12-26 11:59] VITALS: BP 128/59; PULSE 82; RESP 13; TEMP 36.6; O2SAT 98
[2024-12-26] MEDS: LORATADINE 10 MG TABLET PO (12:21)
--- NOTE | 2024-12-26 13:42 | ED.SKABFB ---
HPI - Skin/Abscess/Foreign Bdy General Chief complaint: Skin/Abscess/Foreign Body Stated complaint: rash after whooping cough shot Time Seen by Provider: 12/26/24 12:04 History of Present Illness HPI narrative: Patient started noticing a very itchy rash around her buttocks and groin that started about a day or 2 ago, does not recall any recent exposures, to new foods or detergents, the only thing she can think of with she did have a whooping cough vaccine a few days prior. No swelling of her lips or throat. No nausea vomiting. Related Data Home Medications ?Medication ?Instructions ?Recorded ?Confirmed ?Last Taken ?Type losartan 25 mg tablet 25 mg PO DAILY 05/09/22 05/09/22 Unknown History naproxen 500 mg tablet 500 mg PO BID 05/09/22 05/09/22 Unknown History omeprazole 20 mg capsule,delayed 20 mg PO BID 05/09/22 05/09/22 Unknown History release Allergies Allergy/AdvReac Type Severity Reaction Status Date / Time hydrocodone AdvReac Unknown crying Verified 12/26/24 11:59 propoxyphene (From Darvon) AdvReac Unknown crying Verified 12/26/24 11:59 Review of Systems Review of Systems: All systems reviewed & are unremarkable except as noted in HPI and below PMFSH Past Medical History Medical History Sigmoid diverticulitis Chronic diarrhea Amputation of toe Surgical History Surgical History H/O umbilical hernia repair Hx of removal of ovary H/O rotator cuff surgery Social History Social History (Updated 12/22/24 @ 09:00 by Lynda Larose CMA) Smoking status: Never smoker Second hand tobacco smoke exposure: No Alcohol intake: never Substance use: never Substance use type: does not use Do You Feel Safe in your Home?: Yes Lack of Transportation: No Lack of Food: Never True Current Housing: I Have Housing Concerned About Future Housing: No Difficulty Paying Gas/Electric Bills: No Difficulty Paying for Meds: No Currently Unemployed: No Education: Decline to Answer Difficulty w/ Childcare or Family Care: No Exam Narrative: EXAMINATION OF ORGAN SYSTEMS/BODY AREAS: Constitutional: Vital signs per nursing GENERAL:[No acute distress, non-toxic appearing.] HEAD: Normal with no signs of head trauma. EYES: EOMI, conjunctiva normal ENT: No lip or tongue swelling, normal voice LUNGS: Nonlabored breathing. HEART: [Regular rate and rhythm] ABD: [Soft], [nontender to palpation] EXT: Normal range of motion SKIN: Urticarial rash across entire buttocks, thighs, going up the abdomen and chest NEURO: [Alert. No gross focal sensory or strength deficits.] PSYCH: Normal affect Course Vital Signs Vital signs: Vital Signs Temperature 97.9 F 12/26/24 11:59 Pulse Rate 82 12/26/24 11:59 Respiratory Rate 13 12/26/24 11:59 Blood Pressure 128/59 L 12/26/24 11:59 Pulse Oximetry 98 12/26/24 11:59 Oxygen Delivery Room Air 12/26/24 11:59 Temperature 97.9 F 12/26/24 11:59 Pulse Rate 82 12/26/24 11:59 Respiratory Rate 13 12/26/24 11:59 Blood Pressure 128/59 L 12/26/24 11:59 Pulse Oximetry 98 12/26/24 11:59 Oxygen Delivery Room Air 12/26/24 11:59 MDM - Skin/Abscess/Foreign Bdy MDM Narrative Medical decision making narrative: MEDICAL DECISION MAKING AND COURSE IN THE ED WITH INTERPRETATION/REVIEW OF DIAGNOSTIC STUDIES: Patient presented to the ED with a complaint of [possible allergic reaction]. Vitals [were within acceptable limits]. Physical exam revealed [pruritic urticaria diffusely without evidence of airway compromise, abdominal tenderness, or anaphylaxis]. Based on the patient's history and physical exam, my differential includes but is not limited to [allergic reaction, contact dermatitis]. [Patient was given Claritin, steroids]. I do feel she is stable for discharge and will go home with Claritin and prednisone and followup with PCP, return for further issues. Patient verbalizes understanding. Her daughter is making her appointment for 2 days. Discharge Plan Discharge Clinical Impression: Urticaria Patient Disposition: Home Condition: Stable Instructions: Urticaria (ED) Additional Instructions: Follow-up with your doctor as possible, try the medications as prescribed; if you start having worsening symptoms, especially chest pain or shortness of breath, difficulty speaking or swelling of your lips or tongue, come back to the hospital immediately. Patient Language: Surinamese Prescriptions: New prednisone 20 mg tablet 40 mg PO DAILY 4 Days Qty: 8 0RF hydrocortisone 1 % cream 1 applic topical TID PRN (Reason: rash) Qty: 28.35 0RF Rx Instructions: Start using AFTER finishing prednisone. loratadine 10 mg tablet 10 mg PO DAILY Qty: 30 0RF No Action losartan 25 mg tablet 25 mg PO DAILY naproxen 500 mg tablet 500 mg PO BID omeprazole 20 mg capsule,delayed release(DR/EC) 20 mg PO BID cholestyramine (with sugar) [Questran] 4 gram powder in packet 4 g PO DAILY Qty: 30 3RF Rx Instructions: administer w/meal; avoid other meds within 1hr before or 4-6hr after dose colestipol 1 gram tablet 1 g PO DAILY Qty: 30 3RF prednisolone acetate 1 % drops,suspension 1 drp LEFT EYE Q12H Qty: 10 0RF Rx Instructions: Please place 1 drop in your left eye 2 times a day for [address] 1 drop in your left eye 1 time a day x1 week. Follow-up/Referrals: Barbara,Erlin Brooke MD [Primary Care Provider, Unknown]
== END 2024-12-26 12:23 | disposition home or self-care (01) ==
LOC: ANHED 12:14
PROVIDERS: Emergency Provider Emergency Medicine; PCP Family Medicine
DX: R21 Rash and other nonspecific skin eruption (principal); Z89.429 Acquired absence of other toe(s), unspecified side
CPT/HCPCS: 99283; A9270; J7512

== ENCOUNTER 2025-02-01 09:10 | Outpatient (CLI) | payer MEDICARE, SELFPAY ==
[2025-02-01 09:53] LABS: Hematocrit 41.1 % (37.0-47.0); Hemoglobin 13.7 g/dL (12.0-15.0); Immature Granulocyte Percent A 0.3 % (0-0.5); Lymphocytes Absolute Auto 0.95 K/mm3 (0.9-3.2); Mean Corpuscular HGB Conc 33.3 g/dl (32-36); Mean Corpuscular Hemoglobin 31.9 pg (26-34); Mean Corpuscular Volume 95.6 fl (80-100); Nucleated Red Blood Cells Absolute Auto 0.000 K/mm3 (0.0-0.012); Nucleated Red Blood Cells Perc 0.0 % (0.0-0.2); Platelet Count Result 155 k/mm3 (150-375); Red Blood Count 4.30 M/mm3 (4.2-5.4); White Blood Count 7.2 K/mm3 (4.5-10.0)
[2025-02-01 10:24] LABS: Alanine Aminotransferase 16 U/L (6-35); Albumin Level 4.2 g/dL (3.5-5.1); Alkaline Phosphatase 65 U/L (38-126); Anion Gap 8 mmol/L (4-12); Aspartate Amino Transferase 22 U/L (14-36); Bilirubin,Total 0.9 mg/dL (0.2-1.3); Blood Urea Nitrogen 35 mg/dL (7-17); Calcium 9.3 mg/dL (8.4-10.2); Carbon Dioxide 23 mmol/L (22-30); Chloride 107 mmol/L (98-107); Cholesterol 163 mg/dL (0-200); Estimated Glomerular Filt Rate > 60; Glucose 94 mg/dL (65-110); HDL Direct 59 mg/dL; Potassium 4.5 mmol/L (3.4-5.0); Sodium 138 mmol/L (137-145); Total Protein 6.8 g/dL (6.3-8.2); Triglycerides 110 mg/dL (<150)
[2025-02-01 10:27] LABS: Add Urine Microscopic? YES; Appearance Urine Clear (Clear); Glucose Urine UA Negative (Negative); Leukocyte Esterase Ur 1+ LEU/UL (Negative); Need Manual Microscopic Reviewed; Nitrate Urine Negative (Negative); Non Pathogenic Casts 0-2; Specific Grav Ur 1.020 (1.001-1.035)
[2025-02-01 11:00] LABS: Thyroid Stimulating Hormone 1.900 uIU/mL (0.465-4.680)
== END 2025-02-01 09:11 | disposition home or self-care (01) ==
LOC: ANHLAB 09:13
PROVIDERS: PCP Family Medicine; Visit Provider Nurse Practitioner
DX: E78.5 Hyperlipidemia, unspecified (principal); Z00.00 Encounter for general adult medical examination without abnormal findings; I10 Essential (primary) hypertension; M06.9 Rheumatoid arthritis, unspecified
CPT/HCPCS: 36415; 80053; 80061; 81001; 84443; 85025; 87086